=== PATIENT | male | born 1955 | race Caucasian/White ===

== ENCOUNTER 2020-02-04 17:04 | Inpatient (IN) | payer MEDICARE, MEDICAID, SELFPAY ==
[2020-02-04 17:09] VITALS: BP 175/104; PULSE 94; RESP 25; TEMP 35.7; O2SAT 95; BMI 25.1
--- NOTE | 2020-02-04 17:23 | ECG_ITS ---
Measurements Intervals [place] Rate: 102 P: TN: 0 QRS: -3 QRSD: 74 T: 48 QT: 304 QTc: 397 SUPRAVENTRICULAR TACHYCARDIA of 102 bpm Heavy baseline artifact Defective EKG, need to repeat Electronically Signed On 02-04-2020 20:58:05 CDT by Jhon Lin M.D. [email or web address]
--- NOTE | 2020-02-04 17:23 | XR_ITS ---
WS: [id number] XR chest 1V portable [id number] REASON FOR EXAM: dyspnea/cough FINDINGS: A reticular pattern in the right lung base is seen. The lung sparks are well aerated and appears to be some degree of chronic obstructive pulmonary disea se. The heart is not enlarged there is arteriosclerotic changes in the arch of the aorta. The hilum and apices normal No evidence of osseous abnormalities. XR/XR chest 1V portable [id number] IMPRESSION: Chronic obstructive pulmonary disease with right lower lung interstitial fibros is.
--- NOTE | 2020-02-04 17:30 | ED_ITS ---
Documented by User: Philip Tolentino DO 02/05/20 18:32 HPI - SOB/Dyspnea General: Chief Complaint: Shortness of Breath/Dyspnea Stated Complaint: RESP DISTRESS, AFIB Time Seen by Provider: 02/04/20 17:10 History of Present Illness: HPI Narrative: 64-year-old male brought in from [facility] by EMS. He is a DNR. He was they were called for respiratory distress on arrival EMS reports he was 85% on 5 L by nasal cannula. There is conflicting information in his chart there is an older dated he Do Not Recussitate sitting he does want CPR but several years dated later there is a signed into effect Do Not Recussitate statement he has a history of CVA and he has contractures he is only groaning and unable to give any meaningful history all the history given is from the nurse report. via EMS as well as the [facility] and old records. MD elicited complaint: shortness of breath and cough Pertinent past history: COPD Onset (ago): hour(s) Timing: constant Severity: severe Known history of: COPD and aspiration pneumonia Associated symptoms: Reports chest congestion and cough Treatment prior to arrival: oxygen and bronchodilator Review of Systems General: Reports: ROS unobtainable due to medical condition and ROS unobtainable due to mental status Resp: Reports: chest congestion PFSH ED PFSH: Medical History Alcohol abuse, uncomplicated Analgesic rebound headache Arrhythmia, atrial Bradycardia, unspecified Cerebral infarction, unspecified COPD (chronic obstructive pulmonary disease) Dorsalgia, unspecified Dysphagia Essential (primary) hypertension Expressive aphasia GERD (gastroesophageal reflux disease) Hemiplegia and hemiparesis following cerebral infarction affecting unspecified side Hemiplegia, unspecified affecting unspecified side Hypotension, unspecified Major depressive disorder, single episode, unspecified Other malaise Other muscle spasm Pure hypercholesterolemia, unspecified Spasticity Unspecified sequelae of cerebral infarction Surgical History No pertinent past surgical history Family History Other Hypertension Social History (Updated 02/04/20 @ 23:14 by Richard Caraballo MD) Smoking and tobacco status: unknown if ever smoked Alcohol intake: former Substance/Drug Use: never Housing: Intermediate Physical Exam HENMT: COMMON NORMALS: normocephalic and atraumatic HEAD & SCALP: normocephalic and atraumatic Neck/C-Spine: COMMON NORMALS: no JVD Lymph: LYMPHATIC: no lymphadenopathy noted and no lymphedema noted Resp: COMMON NORMALS: No use of accessory muscles EFFORT & INSPECTION: Yes abnormal respiratory pattern, Yes tachypneic, Yes respiratory distress, Yes labored, Yes grunting, Yes Actively coughing and Yes uses accessory muscles AUSCULTATION: wheezes and diminished lung sounds Cardio: COMMON NORMALS: no JVD, regular rhythm and No murmurs present (Cardio) RATE: tachycardic RHYTHM: regular rhythm GI: COMMON NORMALS: Soft to palpation and No hepatosplenomegaly present INSPECTION: Yes abdominal distension AUSCULTATION: Yes Hypoactive bowel sounds present PALPATION: Yes Soft to palpation, No Tenderness to palpation present (GI), No Guarding due to palpation present (GI) and Yes No hepatosplenomegaly present PERCUSSION: tympanic to percussion Skin: COMMON NORMALS: no rashes or lesions noted GENERAL SKIN EXAM: no rashes or lesions noted Course Vital Signs: Vital signs: Vital Signs Temperature 97.7 F 02/05/20 16:00 Pulse Rate 91 02/05/20 16:00 Respiratory Rate 16 02/05/20 16:00 Blood Pressure 124/75 02/05/20 16:00 Pulse Oximetry 93 02/05/20 16:00 MDM - SOB/Dyspnea MDM Narrative: Medical decision making narrative: Care turned over to Dr. Campbell at change of shift. See his notes for final diagnosis and disposition Lab Data: Labs: Lab Results 02/04/20 02/04/20 02/04/20 Range/Units 17:52 18:10 18:10 WBC 13.1 H (4.0-10.0) 10^3/ uL RBC 5.51 H (4.1-5.3) 10^6/u L Hgb 16.1 (11.7-16.6) g/dL Hct 53.1 H (42.0-52.0) % MCV 96.4 H (80-94) fL MCH 29.2 (28.0-34.0) pg MCHC 30.3 (30.0-36.0) g/dL RDW 13.4 (12.1-15.1) % Plt Count 302 (130-400) 10^3/c mm MPV 9.2 (7.4-10.4) fL Neut % (Auto) 85.4 % Lymph % (Auto) 9.8 % Marshall % (Auto) 2.8 % Eos % (Auto) 1.4 % Baso % (Auto) 0.4 % Neut # (Auto) 11.2 H (1.8-7.7) 10^3/u L Lymph # (Auto) 1.3 (0.8-4.8) 10^3/u L Marshall # (Auto) 0.4 (0.2-0.9) 10^3/u L Eos # (Auto) 0.2 (0.0-0.8) 10^3/u L Baso # (Auto) 0.1 (0.0-0.1) 10^3/u L Nucleated RBC % (a uto) 0 % Nucleated RBCs # 0.0 /100WBC Specimen Type Arterial Sample Site Radial, left ABG pH 7.30 L (7.35-7.45) ABG pCO2 59.1 H (35-45) mmHg ABG pO2 76.3 L (80.0-100.0) mmH g ABG HCO3 28.8 H (22-26) mmol/L ABG O2 Saturation 94.5 ABG Base Excess 0.7 (-2.0-2.0) mmol/ L Kapil Test Pos A-a O2 Gradient 549.8 H (5-10) mmHg Hematocrit 48.1 (42-52) % Hgb O2 Saturation 93.0 L (95-100) % Carboxyhemoglobin 1.0 (0.4-20.1) %THgb Methemoglobin 0.6 (0.4-1.5) % Total Hemoglobin 15.7 (14-18) g/dL Sodium 140.0 140 (131-143) mmol/L Potassium 4.5 4.4 (3.5-5.0) mmol/L Glucose 108.0 101 (70-115) mg/dL Ionized Calcium 1.3 (1.1-1.4) mmol/L O2 Delivery Device Nrb FiO2 100.0 % Pot Washer ID jmn Chloride 100 (98-107) mmol/L Carbon Dioxide 21 L (22-29) mmol/L Anion Gap 23.4 H (5-19) BUN 17 (8-23) mg/dL Creatinine 0.8 (0.7-1.2) mg/dL GFR Calculation 96.7 (90-130) mL/min Calculated Osmolal ity 287 (285-295) mOsm/k g Lactate (0.5-2.2) mmol/L Calcium 10.2 (8.5-10.5) mg/dL Total Bilirubin 0.3 (0.15-1.2) mg/dL AST 97 H (0-40) U/L ALT 91 H (0-41) U/L Alkaline Phosphata se 131 H (40-130) IU/L Troponin T Baselin e (0-15) ng/mL Troponin T 120 Min qagan tayagungin (0-15) ng/mL Delta Troponin T (0-10) ABS# NT-Pro-B Natriuret Pep (0-125) pg/mL Total Protein 7.9 (6.6-8.7) g/dL Albumin 4.3 (3.5-5.2) g/dL Globulin 3.6 (1.3-4.6) g/dL Urine Color (Yellow) Urine Appearance (CLEAR) Urine pH (5-7) Ur Specific Gravit y (1.005-1.030) Urine Protein (Negative) Urine Glucose (UA) (Normal) Urine Ketones (Negative) Urine Blood (Negative) Urine Nitrate (Negative) Urine Bilirubin (NEGATIVE) Urine Urobilinogen (Negative) mg/dL Ur Leukocyte Yajaira ase (Negative) 02/04/20 02/04/20 02/04/20 Range/Units 18:10 18:10 19:23 WBC (4.0-10.0) 10^3/ uL RBC (4.1-5.3) 10^6/u L Hgb (11.7-16.6) g/dL Hct (42.0-52.0) % MCV (80-94) fL MCH (28.0-34.0) pg MCHC (30.0-36.0) g/dL RDW (12.1-15.1) % Plt Count (130-400) 10^3/c mm MPV (7.4-10.4) fL Neut % (Auto) % Lymph % (Auto) % Marshall % (Auto) % Eos % (Auto) % Baso % (Auto) % Neut # (Auto) (1.8-7.7) 10^3/u L Lymph # (Auto) (0.8-4.8) 10^3/u L Marshall # (Auto) (0.2-0.9) 10^3/u L Eos # (Auto) (0.0-0.8) 10^3/u L Baso # (Auto) (0.0-0.1) 10^3/u L Nucleated RBC % (a uto) % Nucleated RBCs # /100WBC Specimen Type Arterial Sample Site Radial, left ABG pH 7.34 L (7.35-7.45) ABG pCO2 49.4 H (35-45) mmHg ABG pO2 62.1 L (80.0-100.0) mmH g ABG HCO3 26.7 H (22-26) mmol/L ABG O2 Saturation ABG Base Excess 0.3 (-2.0-2.0) mmol/ L Kapil Test Pos A-a O2 Gradient (5-10) mmHg Hematocrit 42.6 (42-52) % Hgb O2 Saturation (95-100) % Carboxyhemoglobin (0.4-20.1) %THgb Methemoglobin (0.4-1.5) % Total Hemoglobin (14-18) g/dL Sodium (131-143) mmol/L Potassium (3.5-5.0) mmol/L Glucose (70-115) mg/dL Ionized Calcium (1.1-1.4) mmol/L O2 Delivery Device Bipap FiO2 45.0 % Pot Washer ID harkr Chloride (98-107) mmol/L Carbon Dioxide (22-29) mmol/L Anion Gap (5-19) BUN (8-23) mg/dL Creatinine (0.7-1.2) mg/dL GFR Calculation (90-130) mL/min Calculated Osmolal ity (285-295) mOsm/k g Lactate 3.2 H (0.5-2.2) mmol/L Calcium (8.5-10.5) mg/dL Total Bilirubin (0.15-1.2) mg/dL AST (0-40) U/L ALT (0-41) U/L Alkaline Phosphata se (40-130) IU/L Troponin T Baselin e 10 (0-15) ng/mL Troponin T 120 Min qagan tayagungin (0-15) ng/mL Delta Troponin T (0-10) ABS# NT-Pro-B Natriuret Pep (0-125) pg/mL Total Protein (6.6-8.7) g/dL Albumin (3.5-5.2) g/dL Globulin (1.3-4.6) g/dL Urine Color (Yellow) Urine Appearance (CLEAR) Urine pH (5-7) Ur Specific Gravit y (1.005-1.030) Urine Protein (Negative) Urine Glucose (UA) (Normal) Urine Ketones (Negative) Urine Blood (Negative) Urine Nitrate (Negative) Urine Bilirubin (NEGATIVE) Urine Urobilinogen (Negative) mg/dL Ur Leukocyte Yajaira ase (Negative) 02/04/20 02/04/20 02/04/20 Range/Units 20:12 20:12 20:33 WBC (4.0-10.0) 10^3/ uL RBC (4.1-5.3) 10^6/u L Hgb (11.7-16.6) g/dL Hct (42.0-52.0) % MCV (80-94) fL MCH (28.0-34.0) pg MCHC (30.0-36.0) g/dL RDW (12.1-15.1) % Plt Count (130-400) 10^3/c mm MPV (7.4-10.4) fL Neut % (Auto) % Lymph % (Auto) % Marshall % (Auto) % Eos % (Auto) % Baso % (Auto) % Neut # (Auto) (1.8-7.7) 10^3/u L Lymph # (Auto) (0.8-4.8) 10^3/u L Marshall # (Auto) (0.2-0.9) 10^3/u L Eos # (Auto) (0.0-0.8) 10^3/u L Baso # (Auto) (0.0-0.1) 10^3/u L Nucleated RBC % (a uto) % Nucleated RBCs # /100WBC Specimen Type Sample Site ABG pH (7.35-7.45) ABG pCO2 (35-45) mmHg ABG pO2 (80.0-100.0) mmH g ABG HCO3 (22-26) mmol/L ABG O2 Saturation ABG Base Excess (-2.0-2.0) mmol/ L Kapil Test A-a O2 Gradient (5-10) mmHg Hematocrit (42-52) % Hgb O2 Saturation (95-100) % Carboxyhemoglobin (0.4-20.1) %THgb Methemoglobin (0.4-1.5) % Total Hemoglobin (14-18) g/dL Sodium (131-143) mmol/L Potassium (3.5-5.0) mmol/L Glucose (70-115) mg/dL Ionized Calcium (1.1-1.4) mmol/L O2 Delivery Device FiO2 % Pot Washer ID Chloride (98-107) mmol/L Carbon Dioxide (22-29) mmol/L Anion Gap (5-19) BUN (8-23) mg/dL Creatinine (0.7-1.2) mg/dL GFR Calculation (90-130) mL/min Calculated Osmolal ity (285-295) mOsm/k g Lactate (0.5-2.2) mmol/L Calcium (8.5-10.5) mg/dL Total Bilirubin (0.15-1.2) mg/dL AST (0-40) U/L ALT (0-41) U/L Alkaline Phosphata se (40-130) IU/L Troponin T Baselin e (0-15) ng/mL Troponin T 120 Min qagan tayagungin 10.08 (0-15) ng/mL Delta Troponin T 0.08 (0-10) ABS# NT-Pro-B Natriuret Pep 85 (0-125) pg/mL Total Protein (6.6-8.7) g/dL Albumin (3.5-5.2) g/dL Globulin (1.3-4.6) g/dL Urine Color Yellow (Yellow) Urine Appearance Clear (CLEAR) Urine pH 6 (5-7) Ur Specific Gravit y 1.010 (1.005-1.030) Urine Protein Neg (Negative) Urine Glucose (UA) Norm (Normal) Urine Ketones Negative (Negative) Urine Blood Neg (Negative) Urine Nitrate Negative (Negative) Urine Bilirubin Neg (NEGATIVE) Urine Urobilinogen Norm (Negative) mg/dL Ur Leukocyte Yajaira ase Negative (Negative) Discharge Plan Discharge Patient Disposition: Placed in Observation Admit Provider: Richard Caraballo Clinical Impression: Acute hypercapnic respiratory failure Altered mental status Qualifiers: Altered mental status type: unspecified Qualified Code(s): R41.82 - Altered mental status, unspecified Aspiration pneumonia Qualifiers: Aspiration pneumonia type: unspecified Laterality: right Lung location: lower lobe of lung Qualified Code(s): J69.0 - Pneumonitis due to inhalation of food and vomit Condition: Stable Referrals: Rex Bernardo MD [Primary Care Provider] - Discharge Date/Time: 02/04/20 23:20 Sign Out Sign Out Data: Patient Sign Out occurred on 02/04/20 at 18:43. Patient's care was discussed, and care was transferred from to Erna Rodriguez. Coding Level of Care Code ED Senior Information Security Consultant for Chg Fwd Exam Detailed Documented by User: Erna Rodriguez 02/04/20 22:36 HPI - SOB/Dyspnea General: Chief Complaint: Shortness of Breath/Dyspnea Stated Complaint: RESP DISTRESS, AFIB Time Seen by Provider: 02/04/20 17:10 PFSH ED PFSH: Medical History Alcohol abuse, uncomplicated Analgesic rebound headache Arrhythmia, atrial Bradycardia, unspecified Cerebral infarction, unspecified COPD (chronic obstructive pulmonary disease) Dorsalgia, unspecified Dysphagia Essential (primary) hypertension Expressive aphasia GERD (gastroesophageal reflux disease) Hemiplegia and hemiparesis following cerebral infarction affecting unspecified side Hemiplegia, unspecified affecting unspecified side Hypotension, unspecified Major depressive disorder, single episode, unspecified Other malaise Other muscle spasm Pure hypercholesterolemia, unspecified Spasticity Unspecified sequelae of cerebral infarction Surgical History No pertinent past surgical history Family History Other Hypertension Social History (Updated 02/04/20 @ 23:14 by Richard Caraballo MD) Smoking and tobacco status: unknown if ever smoked Alcohol intake: former Substance/Drug Use: never Housing: Intermediate Course Vital Signs: Vital signs: Vital Signs Temperature 97.7 F 02/05/20 16:00 Pulse Rate 91 02/05/20 16:00 Respiratory Rate 16 02/05/20 16:00 Blood Pressure 124/75 02/05/20 16:00 Pulse Oximetry 93 02/05/20 16:00 MDM - SOB/Dyspnea MDM Narrative: Medical decision making narrative: I talked to the patient's family and they wish to make him a full code. The patient would wake up and talk to me and he confirms he wants everything done. His work-up reveals proba ble aspiration pneumonia in the right lower lobe, he shows signs of hypercapnic respiratory failure but is improving on BiPAP. The case was reviewed in full with Dr. Caraballo and he is in agreement to admission to the floor. He will evaluate the patient and and if necessary place the patient in the ICU. [id number] -Dr. Caraballo would like the patient to have a CT of the head before going to the floor. Lab Data: Attestation: I reviewed the patient's lab results. Labs: Lab Results 02/04/20 02/04/20 02/04/20 Range/Units 17:52 18:10 18:10 WBC 13.1 H (4.0-10.0) 10^3/ uL RBC 5.51 H (4.1-5.3) 10^6/u L Hgb 16.1 (11.7-16.6) g/dL Hct 53.1 H (42.0-52.0) % MCV 96.4 H (80-94) fL MCH 29.2 (28.0-34.0) pg MCHC 30.3 (30.0-36.0) g/dL RDW 13.4 (12.1-15.1) % Plt Count 302 (130-400) 10^3/c mm MPV 9.2 (7.4-10.4) fL Neut % (Auto) 85.4 % Lymph % (Auto) 9.8 % Marshall % (Auto) 2.8 % Eos % (Auto) 1.4 % Baso % (Auto) 0.4 % Neut # (Auto) 11.2 H (1.8-7.7) 10^3/u L Lymph # (Auto) 1.3 (0.8-4.8) 10^3/u L Marshall # (Auto) 0.4 (0.2-0.9) 10^3/u L Eos # (Auto) 0.2 (0.0-0.8) 10^3/u L Baso # (Auto) 0.1 (0.0-0.1) 10^3/u L Nucleated RBC % (a uto) 0 % Nucleated RBCs # 0.0 /100WBC Specimen Type Arterial Sample Site Radial, left ABG pH 7.30 L (7.35-7.45) ABG pCO2 59.1 H (35-45) mmHg ABG pO2 76.3 L (80.0-100.0) mmH g ABG HCO3 28.8 H (22-26) mmol/L ABG O2 Saturation 94.5 ABG Base Excess 0.7 (-2.0-2.0) mmol/ L Kapil Test Pos A-a O2 Gradient 549.8 H (5-10) mmHg Hematocrit 48.1 (42-52) % Hgb O2 Saturation 93.0 L (95-100) % Carboxyhemoglobin 1.0 (0.4-20.1) %THgb Methemoglobin 0.6 (0.4-1.5) % Total Hemoglobin 15.7 (14-18) g/dL Sodium 140.0 140 (131-143) mmol/L Potassium 4.5 4.4 (3.5-5.0) mmol/L Glucose 108.0 101 (70-115) mg/dL Ionized Calcium 1.3 (1.1-1.4) mmol/L O2 Delivery Device Nrb FiO2 100.0 % Pot Washer ID jmn Chloride 100 (98-107) mmol/L Carbon Dioxide 21 L (22-29) mmol/L Anion Gap 23.4 H (5-19) BUN 17 (8-23) mg/dL Creatinine 0.8 (0.7-1.2) mg/dL GFR Calculation 96.7 (90-130) mL/min Calculated Osmolal ity 287 (285-295) mOsm/k g Lactate (0.5-2.2) mmol/L Calcium 10.2 (8.5-10.5) mg/dL Total Bilirubin 0.3 (0.15-1.2) mg/dL AST 97 H (0-40) U/L ALT 91 H (0-41) U/L Alkaline Phosphata se 131 H (40-130) IU/L Troponin T Baselin e (0-15) ng/mL Troponin T 120 Min qagan tayagungin (0-15) ng/mL Delta Troponin T (0-10) ABS# NT-Pro-B Natriuret Pep (0-125) pg/mL Total Protein 7.9 (6.6-8.7) g/dL Albumin 4.3 (3.5-5.2) g/dL Globulin 3.6 (1.3-4.6) g/dL Urine Color (Yellow) Urine Appearance (CLEAR) Urine pH (5-7) Ur Specific Gravit y (1.005-1.030) Urine Protein (Negative) Urine Glucose (UA) (Normal) Urine Ketones (Negative) Urine Blood (Negative) Urine Nitrate (Negative) Urine Bilirubin (NEGATIVE) Urine Urobilinogen (Negative) mg/dL Ur Leukocyte Yajaira ase (Negative) 02/04/20 02/04/20 02/04/20 Range/Units 18:10 18:10 19:23 WBC (4.0-10.0) 10^3/ uL RBC (4.1-5.3) 10^6/u L Hgb (11.7-16.6) g/dL Hct (42.0-52.0) % MCV (80-94) fL MCH (28.0-34.0) pg MCHC (30.0-36.0) g/dL RDW (12.1-15.1) % Plt Count (130-400) 10^3/c mm MPV (7.4-10.4) fL Neut % (Auto) % Lymph % (Auto) % Marshall % (Auto) % Eos % (Auto) % Baso % (Auto) % Neut # (Auto) (1.8-7.7) 10^3/u L Lymph # (Auto) (0.8-4.8) 10^3/u L Marshall # (Auto) (0.2-0.9) 10^3/u L Eos # (Auto) (0.0-0.8) 10^3/u L Baso # (Auto) (0.0-0.1) 10^3/u L Nucleated RBC % (a uto) % Nucleated RBCs # /100WBC Specimen Type Arterial Sample Site Radial, left ABG pH 7.34 L (7.35-7.45) ABG pCO2 49.4 H (35-45) mmHg ABG pO2 62.1 L (80.0-100.0) mmH g ABG HCO3 26.7 H (22-26) mmol/L ABG O2 Saturation ABG Base Excess 0.3 (-2.0-2.0) mmol/ L Kapil Test Pos A-a O2 Gradient (5-10) mmHg Hematocrit 42.6 (42-52) % Hgb O2 Saturation (95-100) % Carboxyhemoglobin (0.4-20.1) %THgb Methemoglobin (0.4-1.5) % Total Hemoglobin (14-18) g/dL Sodium (131-143) mmol/L Potassium (3.5-5.0) mmol/L Glucose (70-115) mg/dL Ionized Calcium (1.1-1.4) mmol/L O2 Delivery Device Bipap FiO2 45.0 % Pot Washer ID harkr Chloride (98-107) mmol/L Carbon Dioxide (22-29) mmol/L Anion Gap (5-19) BUN (8-23) mg/dL Creatinine (0.7-1.2) mg/dL GFR Calculation (90-130) mL/min Calculated Osmolal ity (285-295) mOsm/k g Lactate 3.2 H (0.5-2.2) mmol/L Calcium (8.5-10.5) mg/dL Total Bilirubin (0.15-1.2) mg/dL AST (0-40) U/L ALT (0-41) U/L Alkaline Phosphata se (40-130) IU/L Troponin T Baselin e 10 (0-15) ng/mL Troponin T 120 Min qagan tayagungin (0-15) ng/mL Delta Troponin T (0-10) ABS# NT-Pro-B Natriuret Pep (0-125) pg/mL Total Protein (6.6-8.7) g/dL Albumin (3.5-5.2) g/dL Globulin (1.3-4.6) g/dL Urine Color (Yellow) Urine Appearance (CLEAR) Urine pH (5-7) Ur Specific Gravit y (1.005-1.030) Urine Protein (Negative) Urine Glucose (UA) (Normal) Urine Ketones (Negative) Urine Blood (Negative) Urine Nitrate (Negative) Urine Bilirubin (NEGATIVE) Urine Urobilinogen (Negative) mg/dL Ur Leukocyte Yajaira ase (Negative) 02/04/20 02/04/20 02/04/20 Range/Units 20:12 20:12 20:33 WBC (4.0-10.0) 10^3/ uL RBC (4.1-5.3) 10^6/u L Hgb (11.7-16.6) g/dL Hct (42.0-52.0) % MCV (80-94) fL MCH (28.0-34.0) pg MCHC (30.0-36.0) g/dL RDW (12.1-15.1) % Plt Count (130-400) 10^3/c mm MPV (7.4-10.4) fL Neut % (Auto) % Lymph % (Auto) % Marshall % (Auto) % Eos % (Auto) % Baso % (Auto) % Neut # (Auto) (1.8-7.7) 10^3/u L Lymph # (Auto) (0.8-4.8) 10^3/u L Marshall # (Auto) (0.2-0.9) 10^3/u L Eos # (Auto) (0.0-0.8) 10^3/u L Baso # (Auto) (0.0-0.1) 10^3/u L Nucleated RBC % (a uto) % Nucleated RBCs # /100WBC Specimen Type Sample Site ABG pH (7.35-7.45) ABG pCO2 (35-45) mmHg ABG pO2 (80.0-100.0) mmH g ABG HCO3 (22-26) mmol/L ABG O2 Saturation ABG Base Excess (-2.0-2.0) mmol/ L Kapil Test A-a O2 Gradient (5-10) mmHg Hematocrit (42-52) % Hgb O2 Saturation (95-100) % Carboxyhemoglobin (0.4-20.1) %THgb Methemoglobin (0.4-1.5) % Total Hemoglobin (14-18) g/dL Sodium (131-143) mmol/L Potassium (3.5-5.0) mmol/L Glucose (70-115) mg/dL Ionized Calcium (1.1-1.4) mmol/L O2 Delivery Device FiO2 % Pot Washer ID Chloride (98-107) mmol/L Carbon Dioxide (22-29) mmol/L Anion Gap (5-19) BUN (8-23) mg/dL Creatinine (0.7-1.2) mg/dL GFR Calculation (90-130) mL/min Calculated Osmolal ity (285-295) mOsm/k g Lactate (0.5-2.2) mmol/L Calcium (8.5-10.5) mg/dL Total Bilirubin (0.15-1.2) mg/dL AST (0-40) U/L ALT (0-41) U/L Alkaline Phosphata se (40-130) IU/L Troponin T Baselin e (0-15) ng/mL Troponin T 120 Min qagan tayagungin 10.08 (0-15) ng/mL Delta Troponin T 0.08 (0-10) ABS# NT-Pro-B Natriuret Pep 85 (0-125) pg/mL Total Protein (6.6-8.7) g/dL Albumin (3.5-5.2) g/dL Globulin (1.3-4.6) g/dL Urine Color Yellow (Yellow) Urine Appearance Clear (CLEAR) Urine pH 6 (5-7) Ur Specific Gravit y 1.010 (1.005-1.030) Urine Protein Neg (Negative) Urine Glucose (UA) Norm (Normal) Urine Ketones Negative (Negative) Urine Blood Neg (Negative) Urine Nitrate Negative (Negative) Urine Bilirubin Neg (NEGATIVE) Urine Urobilinogen Norm (Negative) mg/dL Ur Leukocyte Yajaira ase Negative (Negative) Imaging Data^: CXR: Attestation: I personally reviewed and interpreted this imaging study as follows: My impression: Right lower lobe infiltrate. CT Abd/Pel: My impression: [facility] [address] [place] [address] CT Scan Report Signed Patient: Nakul Nolasco Unit #: [id number] : 1955 Age/Sex: 64 / M ADM Date: 02/04/20 Loc: ER Room/Bed: Attending Dr: Ordering Provider/Ordering MD: Philip Tolentino DO Date of Service: 02/04/20 Procedure(s): CT abdomen pelvis w con* [id number] Accession Number(s): [id number] Report Number: [id number] PROCEDURE INFORMATION: Exam: CT Abdomen And Pelvis With Contrast Exam date and time: 02/04/2020 7:20 PM Age: 64 years old Clinical indication: Abdominal pain; Prior surgery; Surgery type: Peg tube; Additional info: Abd pain TECHNIQUE: Imaging protocol: Computed tomography of the abdomen and pelvis with intravenous contrast. Radiation optimization: All CT scans at this facility use at least one of these dose optimization techniques: automated exposure control; mA and/or kV adjustment per patient size (includes targeted exams where dose is matched to clinical indication); or iterative reconstruction. Contrast material: OMNI 300; Contrast volume: 95 ml; Contrast route: IV; COMPARISON: CR Pelvis AP 1 or 2 views* [id number] 01/26/2015 5:12 AM RADIATION DOSE METRICS: Total DLP: 1207.93 mGy-cm FINDINGS: Tubes, catheters and devices: A gastrostomy tube ends in the stomach. No surrounding inflammation or abnormal fluid collection. Lungs: Multiple reticulated opacities in both lower lobes with superimposed centrilobular emphysema. Liver: Normal. No mass. Gallbladder and bile ducts: Normal. No calcified stones. No ductal dilation. Pancreas: Normal. No ductal dilation. Spleen: Normal. No splenomegaly. Adrenals: Normal. No mass. Kidneys and ureters: Normal. No hydronephrosis. Stomach and bowel: Distal colonic diverticula are not inflamed. Increased stool in the rectum measuring up to 4.9 cm. No wall thickening or mechanical obstruction. Appendix: The appendix is normal. Intraperitoneal space: Unremarkable. No free air. No significant fluid collection. Vasculature: Unremarkable. No abdominal aortic aneurysm. Lymph nodes: Unremarkable. No enlarged lymph nodes. Bladder: Unremarkable as visualized. Reproductive: Unremarkable as visualized. Bones/joints: Unremarkable. No acute fracture. Soft tissues: Unremarkable. CT/CT abdomen pelvis w con* [id number] IMPRESSION: 1. No acute abdominal pelvic findings. 2. Gastrostomy tube without evidence of complication. 3. Diverticulosis. 4. Increased rectal stool. 5. Bibasilar reticulated lung opacities. The symmetry suggests this is a combination of atelectasis and vascular congestion. Radiation Dose CTDIVOL = (mGy): DLP = 1207.93 (mGy-cm) Dictated By: Sylvia Mills MD Signed By: Sylvia Mills MD Signed Date/Time: 02/04/202032 DD/ 31 EKG Data^: EKG 1: Attestation: I personally reviewed and interpreted this EKG as follows: EKG Interpretation Date: 02/04/20 EKG interpretation time: 18:07 Interpretation: Probable sinus tachycardia at 102 beats a minute, significant baseline artifact. Discharge Plan Discharge Patient Disposition: Placed in Observation Admit Provider: Richard Caraballo Clinical Impression: Acute hypercapnic respiratory failure Altered mental status Qualifiers: Altered mental status type: unspecified Qualified Code(s): R41.82 - Altered mental status, unspecified Aspiration pneumonia Qualifiers: Aspiration pneumonia type: unspecified Laterality: right Lung location: lower lobe of lung Qualified Code(s): J69.0 - Pneumonitis due to inhalation of food and vomit Condition: Stable Referrals: Rex Bernardo MD [Primary Care Provider] - Discharge Date/Time: 02/04/20 23:20 Sign Out Sign Out Data: Patient Sign Out occurred on 02/04/20 at 18:43. Patient's care was discussed, and care was transferred from to [facility]. Coding Level of Care Code ED Senior Information Security Consultant for Chg Fwd Exam Detailed
--- NOTE | 2020-02-04 17:35 | CTR_ITS ---
PROCEDURE INFORMATION: Exam: CT Abdomen And Pelvis With Contrast Exam date and time: 02/04/2020 7:20 PM Age: 64 years old Clinical indication: Abdominal pain; Prior surgery; Surgery type: Peg tube; Additional info: Abd pain TECHNIQUE: Imaging protocol: Computed tomography of the abdomen and pelvis with intravenous contrast. Radiation optimization: All CT scans at this facility use at least one of these dose optimization techniques: automated exposure control; mA and/or kV adjustment per patient size (includes targeted exams where dose is matched to clinical indication); or iterative reconstruction. Contrast material: OMNI 300; Contrast volume: 95 ml; Contrast route: IV; COMPARISON: CR Pelvis AP 1 or 2 views* [id number] 01/26/2015 5:12 AM RADIATION DOSE METRICS: Total DLP: 1207.93 mGy-cm FINDINGS: Tubes, catheters and devices: A gastrostomy tube ends in the stomach. No surrounding inflammation or abnormal fluid collection. Lungs: Multiple reticulated opacities in both lower lobes with superimposed centrilobular emphysema. Liver: Normal. No mass. Gallbladder and bile ducts: Normal. No calcified stones. No ductal dilation. Pancreas: Normal. No ductal dilation. Spleen: Normal. No splenomegaly. Adrenals: Normal. No mass. Kidneys and ureters: Normal. No hydronephrosis. Stomach and bowel: Distal colonic diverticula are not inflamed. Increased stool in the rectum measuring up to 4.9 cm. No wall thickening or mechanical obstruction. Appendix: The appendix is normal. Intraperitoneal space: Unremarkable. No free air. No significant fluid collection. Vasculature: Unremarkable. No abdominal aortic aneurysm. Lymph nodes: Unremarkable. No enlarged lymph nodes. Bladder: Unremarkable as visualized. Reproductive: Unremarkable as visualized. Bones/joints: Unremarkable. No acute fracture. Soft tissues: Unremarkable. CT/CT abdomen pelvis w con* [id number] IMPRESSION: 1. No acute abdominal pelvic findings. 2. Gastrostomy tube without evidence of complication. 3. Diverticulosis. 4. Increased rectal stool. 5. Bibasilar reticulated lung opacities. The symmetry suggests this is a combination of atelectasis and vascular congestion. Radiation Dose CTDIVOL = (mGy): DLP = 1207.93 (mGy-cm)
[2020-02-04 18:03] LABS: ABG PCO2 59.1 mmHg (35-45); Alveolar-Arterial Oxygen Gradi 549.8 mmHg (5-10); Arterial Blood Gas Hematocrit 48.1 % (42-52); Base Excess ABG 0.7 mmol/L (-2.0-2.0); Blood Gas Allen Test Pos; Blood Gas Sample Site Radial, left; Blood Gas Sample Type Arterial; HCO3 ABG 28.8 mmol/L (22-26); Ionized Calcium Level - ABG 1.3 mmol/L (1.1-1.4); Methemoglobin 0.6 % (0.4-1.5); Oxygen Device NRB; Oxygen Saturation ABG 94.5; PO2 ABG 76.3 mmHg (80.0-100.0); Potassium Level - ABG 4.5 mmol/L (3.5-5.0); Total Hemoglobin 15.7 g/dL (14-18)
[2020-02-04 18:19] LABS: Basophils # 0.1 10^3/uL (0.0-0.1); Basophils % 0.4 %; Eosinophils # 0.2 10^3/uL (0.0-0.8); Eosinophils % 1.4 %; Hematocrit 53.1 % (42.0-52.0); Hemoglobin 16.1 g/dL (11.7-16.6); Lymphocytes # 1.3 10^3/uL (0.8-4.8); Lymphocytes % 9.8 %; Mean Corpuscular HGB Conc 30.3 g/dL (30.0-36.0); Mean Corpuscular Hemoglobin 29.2 pg (28.0-34.0); Mean Corpuscular Volume 96.4 fL (80-94); Mean Platelet Volume 9.2 fL (7.4-10.4); Monocytes # 0.4 10^3/uL (0.2-0.9); Monocytes % 2.8 %; Neutrophils # 11.2 10^3/uL (1.8-7.7); Neutrophils % 85.4 %; Nucleated Red Blood Cells % 0 %; Platelet Count 302 10^3/cmm (130-400); Red Blood Count 5.51 10^6/uL (4.1-5.3); Red Cell Distribution Width 13.4 % (12.1-15.1); White Blood Count 13.1 10^3/uL (4.0-10.0)
[2020-02-04 18:38] LABS: Lactate (Lactic Acid level) 3.2 mmol/L (0.5-2.2)
[2020-02-04 18:45] VITALS: PULSE 103; RESP 28; O2SAT 95
[2020-02-04 18:54] LABS: Alanine Aminotransferase 91 U/L (0-41); Albumin Level 4.3 g/dL (3.5-5.2); Alkaline Phosphatase 131 IU/L (40-130); Anion Gap 23.4 (5-19); Aspartate Amino Transferase 97 U/L (0-40); Blood Urea Nitrogen 17 mg/dL (8-23); Calcium 10.2 mg/dL (8.5-10.5); Carbon Dioxide 21 mmol/L (22-29); Chloride 100 mmol/L (98-107); Creatinine Clr Calc Pharmacy 94.1244; Globulin 3.6 g/dL (1.3-4.6); Glomerular Filtration Rate 96.7 mL/min (90-130); Glucose 101 mg/dL (65-115); Osmolality Calculated 287 mOsm/kg (285-295); Potassium 4.4 mmol/L (3.5-5.1); Sodium 140 mmol/L (136-145); Total Bilirubin 0.3 mg/dL (0.15-1.2); Total Protein 7.9 g/dL (6.6-8.7)
[2020-02-04 18:56] LABS: Troponin(5th) Baseline 10 ng/mL (0-15)
[2020-02-04 19:25] VITALS: PULSE 104; RESP 23; O2SAT 91
[2020-02-04] MEDS: ipratropium-albuterol 3 mL Neb INHALATION (19:25)
[2020-02-04 19:34] LABS: ABG PCO2 49.4 mmHg (35-45); ABG PH Result 7.34 (7.35-7.45); Arterial Blood Gas Hematocrit 42.6 % (42-52); Base Excess ABG 0.3 mmol/L (-2.0-2.0); Blood Gas Allen Test Pos; Blood Gas Sample Site Radial, left; Blood Gas Sample Type Arterial; HCO3 ABG 26.7 mmol/L (22-26); Oxygen Device BIPAP; PO2 ABG 62.1 mmHg (80.0-100.0)
[2020-02-04 19:35] VITALS: PULSE 104; PULSE 105; RESP 23; O2SAT 91; O2SAT 92
[2020-02-04 20:33] LABS: Troponin 5 2HR 10.08 ng/mL (0-15); Troponin 5 2HR Delta 0.08 ABS# (0-10)
[2020-02-04] MEDS: levofloxacin-dextrose 5 % 750 MG/150 ML PREMIX 150 MG IV (20:57)
[2020-02-04] MEDS: metroNIDAZOLE IV 500 MG/100 ML PREMIX 100 MG IV (20:58)
[2020-02-04 20:59] LABS: Add Urine Microscopic? NO
[2020-02-04 21:57] LABS: Bilirubin Urine Neg (NEGATIVE); Blood Urine Neg (Negative); Glucose Urine UA Norm (Normal); Ketones Urine Negative (Negative); Leukocyte Esterase Urine Negative (Negative); Nitrate Urine Negative (Negative); Protein Urine Neg (Negative); Urine Appearance Clear (CLEAR); Urine Color Yellow (Yellow); Urobilinogen Urine Norm (Negative); pH Urine 6 (5-7)
[2020-02-04 21:59] LABS: NT Pro B Type Natriuretic Pept 85 pg/mL (0-125)
[2020-02-04 22:05] VITALS: PULSE 101; RESP 21; O2SAT 94
--- NOTE | 2020-02-04 22:36 | CTR_ITS ---
PROCEDURE INFORMATION: Exam: CT Head Without Contrast Exam date and time: 02/04/2020 10:36 PM Age: 64 years old Clinical indication: Altered mental status/memory loss; Patient HX: HX stroke, PT nonverbal; Additional info: AMS TECHNIQUE: Imaging protocol: Computed tomography of the head without contrast. Radiation optimization: All CT scans at this facility use at least one of these dose optimization techniques: automated exposure control; mA and/or kV adjustment per patient size (includes targeted exams where dose is matched to clinical indication); or iterative reconstruction. COMPARISON: CT head wo con* [id number] 10/10/2018 5:53 PM RADIATION DOSE METRICS: Total DLP: 894.78 mGy-cm FINDINGS: Brain: There is extensive hypodensity of the periventricular white matter. This is nonspecific, but a likely cause is small vessel ischemic disease. Large area of encephalomalacia in the left cerebral hemisphere superiorly involving portions of the frontal lobe and parietal lobe. This is consistent with chronic infarct and is similar to prior study. There is a 0.7 cm lacunar infarct in the left basal ganglia region. No abnormal intra-axial or extra-axial fluid collections are identified. There is no midline shift. No intracranial hemorrhage identified. Ventricles: The ventricles and sulci are markedly and diffusely prominent, compatible with global brain volume loss. Superimposed on this is ex vacuo dilation of the left lateral ventricle, similar to prior study. Bones/joints: Unremarkable as visualized. Sinuses: Visualized sinuses are unremarkable. No fluid levels. Mastoid air cells: Visualized mastoid air cells are well aerated. Soft tissues: Unremarkable. CT/CT head wo con* [id number] IMPRESSION: 1. No acute intracranial process identified. Chronic findings as above. Radiation Dose CTDIVOL = (mGy): DLP = 894.78 (mGy-cm)
--- NOTE | 2020-02-04 23:06 | P.HP_ITS ---
Providers/Chief Complaint Admitting Physician: Richard Caraballo MD Primary Care Provider: Rex Bernardo MD Chief Complaint: RESP DISTRESS, AFIB History of Present Illness Nakul Nolasco is a 64 year old male who is a resident of [facility] with past medical history of CVA with residual right-sided spastic hemiparesis, oropharyngeal dysphagia currently on mechanical soft diet, COPD, anxiety/depression, seizure disorder coming in today after he was found obtunded in his room. I called intermediate to get the report, nurses are stating that he was doing fine until today he attended his speech therapy session, he got his inhaler treatments, after a few hours his oxygen saturation was decreasing, he became unresponsive, he was sent to the ER for further evaluation. On arrival t o the ED patient was moaning and was put on BiPAP, he was in respiratory acidosis with hypoxia, his blood gas improved, his mentation improved, initially there was some confusion regarding his goals of care intubation was not considered, there is a DNR/DNI paperwork and his intermediate documentation, once patient mentation improved, he stated he is full code, his daughter was called who also endorsed full CODE STATUS. She told us that DNR/DNI was made when they thought he had second stroke on last admission. At the time of my evaluation he is tachycardic, hypertensive, breathing better on BiPAP settings 18/8 good tidal volumes, respiratory acidosis is improving, is a bit drowsy, only oriented to himself, does not know his date of , I requested ER to get CT head because of recent confusion and history of stroke He meet sepsis criteria, x-ray showing right middle lobe infiltrates, most likely he is aspirating He has been given ceftriaxone and Flagyl in the ER At the intermediate his temperature was 99.2, blood pressure stable, he was hypoxic in low 70s on room air at the time of EMT evaluation Review of Systems General: Reports: ROS unobtainable due to medical condition (Respiratory acidosis with confusion) Const: Denies: fever(s) Eyes: Denies: change in vision ENMT: Denies: throat pain Card: Denies: chest pain Resp: Reports: dyspnea GI: Denies: abdominal pain : Denies: flank pain Musc: Denies: neck pain Skin/Breast: Denies: rash Medications/Allergies Home Medications Medication Instructions Recorded Confirmed Last Taken Type Saccharomyces boulardii 250 mg 250 mg PO BID #120 cap 12/17/19 02/04/20 02/04/20 Rx capsule acetaminophen 325 mg tablet 650 mg PO QID PRN 12/17/19 02/04/20 Unknown History aripiprazole 2 mg tablet 2 mg PO DAILY 12/17/19 02/04/20 02/03/20 History gabapentin 600 mg tablet 600 mg PO TID 12/17/19 02/04/20 02/04/20 History magnesium hydroxide 400 mg/5 mL 5 ml PO DAILY PRN 12/17/19 02/04/20 Unknown History oral suspension fluticasone propionate 50 2 spray INTRANASAL DAILY #9.9 ml 01/13/20 02/04/20 02/04/20 Rx mcg/actuation nasal spray,suspension Effexor XR 75 mg PO BID 02/04/20 02/04/20 02/04/20 History albuterol sulfate 2.5 mg INHALATION Q6H PRN 02/04/20 02/04/20 Unknown History aspirin 325 mg PO DAILY 02/04/20 02/04/20 02/04/20 History atorvastatin 80 mg PO DAILY 02/04/20 02/04/20 02/03/20 History baclofen 10 mg PO TID 02/04/20 02/04/20 02/04/20 History hydrocodone-acetaminophen 1 tab PO DAILY PRN 02/04/20 02/04/20 Unknown History lactose-reduced food with fibr See Rx Instructions .ROUTE .COMPLEX 02/04/20 02/04/20 02/04/20 History [Isosource 1.5 Markus] levetiracetam [Keppra] 1,000 mg PO BID 02/04/20 02/04/20 02/04/20 History polyethylene glycol 3350 [Miralax] 17 g PO BEDTIME 02/04/20 02/04/20 02/03/20 History Allergies Allergy/AdvReac Type Severity Reaction Status Date / Time Penicillins Allergy Unknown Verified 01/29/20 09:35 PFSH Acute PFSH: Medical History Alcohol abuse, uncomplicated Analgesic rebound headache Arrhythmia, atrial Bradycardia, unspecified Cerebral infarction, unspecified COPD (chronic obstructive pulmonary disease) Dorsalgia, unspecified Dysphagia Essential (primary) hypertension Expressive aphasia GERD (gastroesophageal reflux disease) Hemiplegia and hemiparesis following cerebral infarction affecting unspecified side Hemiplegia, unspecified affecting unspecified side Hypotension, unspecified Major depressive disorder, single episode, unspecified Other malaise Other muscle spasm Pure hypercholesterolemia, unspecified Spasticity Unspecified sequelae of cerebral infarction Surgical History No pertinent past surgical history Family History Other Hypertension Social History (Updated 02/04/20 @ 23:14 by Richard Caraballo MD) Smoking and tobacco status: unknown if ever smoked Alcohol intake: former Substance/Drug Use: never Housing: [facility] Vitals/I&O/Wt Last Vital Signs Temp 96.2 F L 02/04/20 17:09 Pulse 105 H 02/04/20 19:35 Resp 23 H 02/04/20 19:25 BP 175/104 02/04/20 17:09 Pulse Ox 92 02/04/20 19:35 Weight last 48 hrs Weight 77.111 kg Physical Exam Narrative: EXAM NARRATIVE: Head to toe examination EOMI, PERRLA Pupils not asymmetrical Spastic hemiparesis of right upper and lower extremity He is able to move his left arm on command, following command, oriented to himself, able to give me little bit of information about today's event No active respiratory distress S1, S2, tachycardia No signs of heart failure He looks dehydrated Abdomen soft nontender nondistended Bilateral breath sounds without adventitious sounds Lethargic Trace edema of right lower extremity He has a foot brace on right side Rodas catheter draining clear yellow urine BiPAP 18/8 with good tidal volume Urinary Catheter Management^: Rodas: Cath Placed During This Visit: yes Urinary Catheter Date of Insertion: 02/04/20 Urinary Catheter Time of Insertion: 21:38 Data : 02/04/20 18:10 02/04/20 18:10 Micro: Microbiology 02/04/20 18:14 Blood Culture - Preliminary Blood SPECIMEN COLLECTED 02/04/20 18:10 Blood Culture - Preliminary Blood SPECIMEN COLLECTED A&P Assessment and plan (1) Sepsis: Status: Acute (2) Altered mental status: Status: Acute Qualifiers: Altered mental status type: unspecified Qualified Code(s): R41.82 - Altered mental status, unspecified (3) COPD (chronic obstructive pulmonary disease): Status: Acute (4) Spastic hemiparesis affecting dominant side: Status: Acute (5) Aspiration pneumonia: Status: Acute Qualifiers: Aspiration pneumonia type: unspecified Laterality: right Lung location: lower lobe of lung Qualified Code(s): J69.0 - Pneumonitis due to inhalation of food and vomit (6) Acute respiratory failure with hypoxia and hypercapnia: Status: Acute Additional A&P Information Sepsis secondary to aspiration pneumonia Sepsis criteria met with leukocytosis, high lactic acid, tachycardia, he has been afebrile, most likely source is aspiration pneumonia, UA negative He has received ceftriaxone and Flagyl in the ER, I would continue same regimen for now, nasal swab for MRSA screening, no p revious admission or IV antibiotics in last 90 days He is on mechanical soft diet with Isosource at the intermediate Currently tolerating BiPAP Acute hypoxic hypercarbic respiratory failure Improving on BiPAP Mentation improving Closely monitor in ICU, patient is full code with high risk for intubation PCO2 and pH improved after 2 hours of BiPAP usage No active respiratory distress Spastic hemiparesis secondary to CVA I would continue his baclofen and Effexor Continue aspirin and statin For now I would hold opioids and aripiprazole to avoid sedating effect Continue Keppra Oropharyngeal dysphagia secondary to stroke with expressive aphasia He is attending speech therapy at the intermediate I would keep him n.p.o. for now Speech therapy to see if we can modify his diet to prevent aspiration recurrence Full code DVT prophylaxis Lovenox N.p.o. for now Attestations Medical Necessity Statement*: Anticipating stay in the hospital cross more than 2 midnights continued management for septic due to aspiration pneumonia Time Spent in Patient Care: 60 Coding Level of Care Code Acute Unit Assembler for [facility] Fwd Diagnoses Sepsis A41.9 Altered mental status R41.82 Altered mental status type: unspecified COPD (chronic obstructive pulmonary disease) J44.9 Spastic hemiparesis affecting dominant side G81.10 Aspiration pneumonia J69.0 Aspiration pneumonia type: unspecified Laterality: right Lung location: lower lobe of lung Acute respiratory failure with hypoxia and hypercapnia J96.01; J96.02
[2020-02-04 23:10] VITALS: BP 124/86; PULSE 84; RESP 17; O2SAT 98
--- NOTE | 2020-02-04 23:24 | ECG_ITS ---
Measurements Intervals [place] Rate: 103 P: OR: 0 QRS: -6 QRSD: 73 T: 51 QT: 324 QTc: 424 SUPRAVENTRICULAR TACHYCARDIA SEPTAL MYOCARDIAL INFARCTION , OF INDETERMINATE AGE [40+ ms Q WAVE IN V1/V2] Compared to ECG 04/03/2016 08:54:29 T-wave abnormality no longer present Heavy baseline artifact, need to repeat the study Electronically Signed On 02-04-2020 21:00:37 CDT by Jhon Lin M.D. [email or web address]
[2020-02-05] VITALS (22 sets, daily range): BP systolic 100–157; BP diastolic 66–89; PULSE 84–98; RESP 16–46; TEMP 36.5–37.3; O2SAT 91–97
[2020-02-05] MEDS: ipratropium-albuterol 3 mL Neb INHALATION ×4 (00:05→21:07)
[2020-02-05 00:50] LABS: Troponin 5 6HR 12.74 ng/mL (0-15); Troponin 5 6HR Delta 2.74 ng/L (0-12)
[2020-02-05] MEDS: cefTRIAXone 1,000 MG in sodium chloride 0.9% (plus) 50 ML 100 MG IV (00:55)
[2020-02-05] MEDS: dextrose 5%-sod chloride 0.45% 1,000 ML 30 ML IV (01:07)
[2020-02-05] MEDS: enoxaparin 40 mg/0.4 mL Syringe SUBCUT (01:07)
[2020-02-05 03:55] LABS: ABG PCO2 41.6 mmHg (35-45); ABG PH Result 7.43 (7.35-7.45); Arterial Blood Gas Hematocrit 41.5 % (42-52); Base Excess ABG 2.7 mmol/L (-2.0-2.0); Blood Gas Allen Test Pos; Blood Gas Sample Site Radial, left; Blood Gas Sample Type Arterial; HCO3 ABG 27.4 mmol/L (22-26); Oxygen Device BIPAP; PO2 ABG 66.6 mmHg (80.0-100.0)
[2020-02-05 05:38] LABS: Basophils % 0.2 %; Eosinophils % 0.1 %; Hematocrit 38.5 % (42.0-52.0); Hemoglobin 12.4 g/dL (11.7-16.6); Lymphocytes # 0.9 10^3/uL (0.8-4.8); Lymphocytes % 5.2 %; Mean Corpuscular HGB Conc 32.2 g/dL (30.0-36.0); Mean Corpuscular Hemoglobin 29.4 pg (28.0-34.0); Mean Corpuscular Volume 91.2 fL (80-94); Mean Platelet Volume 9.5 fL (7.4-10.4); Monocytes # 0.8 10^3/uL (0.2-0.9); Monocytes % 4.8 %; Neutrophils # 15.6 10^3/uL (1.8-7.7); Neutrophils % 89.4 %; Nucleated Red Blood Cells % 0 %; Platelet Count 258 10^3/cmm (130-400); Red Blood Count 4.22 10^6/uL (4.1-5.3); Red Cell Distribution Width 13.7 % (12.1-15.1); White Blood Count 17.4 10^3/uL (4.0-10.0)
[2020-02-05 05:53] LABS: Blood Urea Nitrogen 15 mg/dL (8-23); Calcium 9.1 mg/dL (8.5-10.5); Carbon Dioxide 26 mmol/L (22-29); Chloride 102 mmol/L (98-107); Creatinine Clr Calc Pharmacy 94.1244; Glomerular Filtration Rate 112.8 mL/min (90-130); Glucose 146 mg/dL (65-115); Osmolality Calculated 285 mOsm/kg (285-295); Sodium 138 mmol/L (136-145)
[2020-02-05] MEDS: aspirin 325 mg Tablet PEG-TUBE (08:06)
[2020-02-05] MEDS: metroNIDAZOLE 500 MG Tablet PEG-TUBE ×3 (08:06→20:46)
[2020-02-05] MEDS: atorvastatin 40 mg Tablet 80 MG PT (08:06)
[2020-02-05] MEDS: baclofen 10 mg Tablet PEG-TUBE ×3 (08:06→20:46)
--- NOTE | 2020-02-05 14:18 | PC.NURSE ---
Patient daughter Clara called and stated that she wanted the DNR paperwork 10/29/18 to remain active with no changes at this time. [end]
--- NOTE | 2020-02-05 14:26 | PM.PN ---
Subjective Subjective: Interval history: Overnight labs and H&P reviwed. patient continues to be lethargic, weak, only mumbles in response to most questions. Medications: Reviewed: Yes Vitals/I&O/Wt Last Vital Signs Temp 99.2 F 02/05/20 11:14 Pulse 98 02/05/20 13:27 Resp 16 02/05/20 11:14 BP 128/76 02/05/20 11:14 Pulse Ox 95 02/05/20 13:27 02/04/20 02/05/20 02/05/20 22:59 06:59 14:59 Intake Total 250 / 250 Output Total 600 / 600 Balance -350 / -350 Weight last 48 hrs Weight 77.111 kg Physical Exam Narrative: EXAM NARRATIVE: GEN: Awake, unable to assess orientation because of slurred speech CVS: S1S2 N RS: B/L coarse breath sounds Abd: Soft, nt/nd , bs+ UX INTERACTION DESIGNER: R hemiparesis, speech slurred Urinary Catheter Management^: Rodas: Cath Placed During This Visit: yes Reason for Continuing Indwelling Catheter: Acute Urinary Retention or Obstruction Urinary Catheter Date of Insertion: 02/04/20 Urinary Catheter Time of Insertion: 21:38 Data : 02/05/20 05:14 02/05/20 05:14 Micro: Microbiology 02/04/20 00:15 Legionella Urinary Antigen - Final Urine,Voided Bacterial Antigens - Final 02/04/20 18:14 Blood Culture - Preliminary Blood SPECIMEN COLLECTED 02/04/20 18:10 Blood Culture - Preliminary Blood SPECIMEN COLLECTED A&P Assessment and plan (1) Sepsis: Status: Acute (2) Altered mental status: Status: Acute Qualifiers: Altered mental status type: unspecified Qualified Code(s): R41.82 - Altered mental status, unspecified (3) COPD (chronic obstructive pulmonary disease): Status: Acute (4) Spastic hemiparesis affecting dominant side: Status: Acute (5) Aspiration pneumonia: Status: Acute Qualifiers: Aspiration pneumonia type: unspecified Laterality: right Lung location: lower lobe of lung Qualified Code(s): J69.0 - Pneumonitis due to inhalation of food and vomit (6) Acute respiratory failure with hypoxia and hypercapnia: Status: Acute Additional A&P Information 1. Sepsis, likely secondary to aspiration pneumonia per history Sepsis criteria met with leukocytosis, high lactic acid, tachycardia, most likely source is aspiration pneumonia, UA negative He has received ceftriaxone and Flagyl in the ER, will continue same pending MRSA screening He is on mechanical soft diet with Isosource at the [facility], though after discussion with PCP , it appears that the oral feeding is more on patient's insistence. Patient previously has a DNR/DNI at the [place], with the understanding that he remains at a high risk of aspiration if continuing to take oral intake. Off bipap this morning, able to be weaned off this morning, now on 3lpm via nasal canula and maintaining 02 sat. Bipap prn to continue 2. Acute hypoxic hypercarbic respiratory failure Improving on BiPAP PCO2 and pH improved after 2 hours of BiPAP usage CXR shows chronic obstructive pulmonary disease with right lower lung interstitial fibrosis. Duonebs q4h inhalation 3. Spastic hemiparesis secondary to CVA continue his baclofen and Effexor Continue aspirin and statin Continue Keppra 4. Oropharyngeal dysphagia secondary to stroke with expressive aphasia Prior barium swallow with evidence of laryngeal penetration Continue NPO strictly 5. Altered mental status due to metabolic encephalopathy from sepsis 6. Covid testing as requested by [place] Code status: full cod ein system, however per [place], patient has been DNR/DNI. Left message to discuss with patient's daughter- awaiting callback. DVT prophylaxis Lovenox N.p.o. strictly. Start IVF NS 75cc/hr Attestations Medical Necessity Statement*: sepsis, need for iv abx, altered mentation Coding Level of Care Code Acute Database Management Specialist for [facility] Diagnoses Sepsis A41.9 Altered mental status R41.82 Altered mental status type: unspecified COPD (chronic obstructive pulmonary disease) J44.9 Spastic hemiparesis affecting dominant side G81.10 Aspiration pneumonia J69.0 Aspiration pneumonia type: unspecified Laterality: right Lung location: lower lobe of lung Acute respiratory failure with hypoxia and hypercapnia J96.01; J96.02
[2020-02-05] MEDS: sodium chloride 0.9% 1,000 ML 75 ML IV (14:53)
[2020-02-05] MEDS: acetaminophen 650 mg/20.3 mL UDC PEG-TUBE (17:54)
[2020-02-05] MEDS: polyethylene glycol 3350 Pkt 17 gm PEG-TUBE (20:46)
--- NOTE | 2020-02-05 21:02 | PC.NURSE ---
aspiration precautions pt's HOB remains elevated and locked at 30 degrees, suction at bedside.
[2020-02-06] VITALS (12 sets, daily range): BP systolic 142–164; BP diastolic 74–92; PULSE 85–95; RESP 16–24; TEMP 36.7–37.3; O2SAT 92–98
[2020-02-06] MEDS: cefTRIAXone 1,000 MG in sodium chloride 0.9% (plus) 50 ML 100 MG IV (00:22)
[2020-02-06] MEDS: enoxaparin 40 mg/0.4 mL Syringe SUBCUT (00:22)
[2020-02-06] MEDS: sodium chloride 0.9% 1,000 ML 75 ML IV (05:07)
[2020-02-06 05:47] LABS: Basophils % 0.3 %; Eosinophils # 0.2 10^3/uL (0.0-0.8); Eosinophils % 1.9 %; Hematocrit 39.3 % (42.0-52.0); Hemoglobin 12.6 g/dL (11.7-16.6); Lymphocytes # 0.9 10^3/uL (0.8-4.8); Lymphocytes % 7.5 %; Mean Corpuscular HGB Conc 32.1 g/dL (30.0-36.0); Mean Corpuscular Hemoglobin 29.2 pg (28.0-34.0); Mean Platelet Volume 9.3 fL (7.4-10.4); Monocytes # 0.6 10^3/uL (0.2-0.9); Monocytes % 5.5 %; Neutrophils # 9.5 10^3/uL (1.8-7.7); Neutrophils % 84.5 %; Nucleated Red Blood Cells % 0 %; Platelet Count 244 10^3/cmm (130-400); Red Blood Count 4.32 10^6/uL (4.1-5.3); Red Cell Distribution Width 13.5 % (12.1-15.1); White Blood Count 11.3 10^3/uL (4.0-10.0)
[2020-02-06 06:05] LABS: Lactate (Lactic Acid level) 1.4 mmol/L (0.5-2.2)
[2020-02-06 06:06] LABS: Alanine Aminotransferase 81 U/L (0-41); Albumin Level 3.3 g/dL (3.5-5.2); Alkaline Phosphatase 91 IU/L (40-130); Anion Gap 15.4 (5-19); Aspartate Amino Transferase 61 U/L (0-40); Blood Urea Nitrogen 11 mg/dL (8-23); Calcium 8.9 mg/dL (8.5-10.5); Carbon Dioxide 25 mmol/L (22-29); Chloride 105 mmol/L (98-107); Creatinine Clr Calc Pharmacy 94.1244; Glomerular Filtration Rate 166.4 mL/min (90-130); Glucose 111 mg/dL (65-115); Osmolality Calculated 291 mOsm/kg (285-295); Potassium 3.4 mmol/L (3.5-5.1); Sodium 142 mmol/L (136-145); Total Bilirubin 0.7 mg/dL (0.15-1.2); Total Protein 6.3 g/dL (6.6-8.7)
[2020-02-06 06:10] LABS: D Dimer 0.73 ug/mIFEU (0-0.59)
[2020-02-06] MEDS: ipratropium-albuterol 3 mL Neb INHALATION (08:35)
[2020-02-06] MEDS: aspirin 325 mg Tablet PEG-TUBE (08:39)
[2020-02-06] MEDS: atorvastatin 40 mg Tablet 80 MG PT (08:40)
[2020-02-06] MEDS: baclofen 10 mg Tablet PEG-TUBE ×3 (08:40→21:38)
[2020-02-06] MEDS: metroNIDAZOLE 500 MG Tablet PEG-TUBE ×3 (08:40→21:39)
[2020-02-06] MEDS: acetaminophen 650 mg/20.3 mL UDC PEG-TUBE ×3 (08:41→21:41)
--- NOTE | 2020-02-06 11:59 | CTR_ITS ---
PROCEDURE INFORMATION: Exam: CT Angiography Chest With Contrast Exam date and time: 02/06/2020 4:53 PM Age: 64 years old Clinical indication: Dyspnea; Prior surgery; Surgery type: Peg tube; Additional info: Elevared d dimer, respiratory distress TECHNIQUE: Imaging protocol: Computed tomographic angiography of the chest with intravenous contrast. 3D rendering: MIP and/or 3D reconstructed images were created by the technologist. Radiation optimization: All CT scans at this facility use at least one of these dose optimization techniques: automated exposure control; mA and/or kV adjustment per patient size (includes targeted exams where dose is matched to clinical indication); or iterative reconstruction. Contrast material: OMNI 350; Contrast volume: 95 ml; Contrast route: IV; COMPARISON: CTA Chest-Pulmonary Emb [id number] 12/30/2014 1:39 PM RADIATION DOSE METRICS: Total DLP: 633.59 mGy-cm FINDINGS: Pulmonary arteries: There is no pulmonary embolus. Aorta: The ascending thoracic aorta is enlarged measuring 4.2 cm. This is unchanged. There are [id number] atherosclerotic changes in the thoracic aorta. Lungs: There is severe emphysematous changes with mild apical scarring. There is some mild ground-glass opacity in the lung bases concerning for mild pneumonitis or interstitial CHF. No dense lobar consolidation. Pleural space: Unremarkable. No pneumothorax. No pleural effusion. Heart: Unremarkable. No cardiomegaly. No pericardial effusion. Lymph nodes: Subcentimeter lymph nodes are noted in the mediastinum. There is no pathologic adenopathy. Stomach and bowel: There is a PEG tube in good position. Bones/joints: There is unchanged mild height loss and Schmorl's nodes at T12. No acute fracture. There are moderate degenerative changes in the spine. Soft tissues: Unremarkable. Other findings: The exam is limited by extensive motion artifact. There is no dissection. CT/CT angio chest PE protcl [id number] IMPRESSION: 1. There is no pulmonary embolus. 2. Unchanged 4.2 cm aneurysm of the ascending thoracic aorta. No dissection or leak. 3. There is some mild ground-glass opacity in the lung bases concerning for mild pneumonitis or interstitial CHF. Underlying severe COPD is noted. Radiation Dose CTDIVOL = (mGy): DLP = 633.59 (mGy-cm)
--- NOTE | 2020-02-06 12:00 | USCV_ITS ---
Nakul Nolasco Age: 64 Gender: M : 1955 Exam Date: 02/06/2020 14:34 Ordering Phys: Sara Pichardo MD Technologist: Fide Ho Exam Location: [facility] [place] Indication: SWELLING HISTORY: Lower extremity swelling. PROCEDURES: Venous duplex imaging was performed in bilateral lower extremities. The following venous structures were evaluated: common femoral vein, profunda vein, proximal portion of the greater saphenous vein, superficial femoral vein, and the popliteal vein. In addition, the posterior tibial and peroneal trunk were evaluated. Serial compression, augmentation maneuvers, and spectral Doppler flow evaluation were performed. FINDINGS: Normal 2-D Doppler and augmentation and compressibility throughout the lower extremity venous structures. Additional imaging through the proximal calf veins also reveals no thrombus. Limited evaluation of the greater saphenous vein is patent with no thrombus.. CONCLUSIONS No evidence of DVT in the above-mentioned identifiable veins. Dr Jhon Lin MD [facility] (Electronically Signed) Final Date: 06 February 2020 16:46 S
--- NOTE | 2020-02-06 15:14 | P.PN_ITS ---
Subjective Subjective: Interval history: no significant change in mental status today. Appears more comfortable, better hydrated. D dimer mildy elevated, tmax 99.2F. Leukocytosis improving Medications: Reviewed: Yes Vitals/I&O/Wt Last Vital Signs Temp 99.2 F 02/06/20 11:23 Pulse 95 02/06/20 11:23 Resp 17 02/06/20 11:23 BP 142/89 02/06/20 11:23 Pulse Ox 92 02/06/20 11:23 02/06/20 02/06/20 02/06/20 06:59 14:59 22:59 Intake Total 1000 / 1000 Output Total 1100 / 1775 900 / 900 Balance -100 / -775 -900 / -900 Weight last 48 hrs Weight 77.111 kg Physical Exam Narrative: EXAM NARRATIVE: GEN: Awake, disoriented, speech slurred CVS: S1S2 N RS: CTA B/L Abd: Soft, nt/nd , bs+ Urinary Catheter Management^: Rodas: Cath Placed During This Visit: yes Reason for Continuing Indwelling Catheter: Acute Urinary Retention or Obstruction Urinary Catheter Date of Insertion: 02/04/20 Urinary Catheter Time of Insertion: 21:38 Data : 02/06/20 05:39 02/06/20 05:39 Micro: Microbiology 02/04/20 18:14 Blood Culture - Preliminary Blood NEGATIVE TO DATE 02/04/20 18:10 Blood Culture - Preliminary Blood NEGATIVE TO DATE 02/05/20 04:37 MRSA Culture - Final Nose A&P Assessment and plan (1) Sepsis: Status: Acute (2) Altered mental status: Status: Acute Qualifiers: Altered mental status type: unspecified Qualified Code(s): R41.82 - Altered mental status, unspecified (3) COPD (chronic obstructive pulmonary disease): Status: Acute (4) Spastic hemiparesis affecting dominant side: Status: Acute (5) Aspiration pneumonia: Status: Acute Qualifiers: Aspiration pneumonia type: unspecified Laterality: right Lung location: lower lobe of lung Qualified Code(s): J69.0 - Pneumonitis due to inhalation of food and vomit (6) Acute respiratory failure with hypoxia and hypercapnia: Status: Acute Additional A&P Information 1. Sepsis, likely secondary to aspiration pneumonia per history Sepsis criteria met with leukocytosis, high lactic acid, tachycardia, most likely source is aspiration pneumonia, UA negative He has received ceftriaxone and Flagyl in the ER, will continue same MRSA screening +, however patient improving with current regimen, will hold off on adding vancomycin He [facility]. For now he is npo due to high risk of aspiration, on IVF with better hydration today D dime mildly elevated, t max 99.2, will evaluate for PE Off bipap now Bipap prn to continue 2. Acute hypoxic hypercarbic respiratory failure PCO2 and pH improved after 2 hours of BiPAP usage CXR shows chronic obstructive pulmonary disease with right lower lung interstitial fibrosis. Duonebs q4h inhalation 3. Spastic hemiparesis secondary to CVA continue his baclofen and Effexor Continue aspirin and statin Continue Keppra 4. Oropharyngeal dysphagia secondary to stroke with expressive aphasia Prior barium swallow with evidence of laryngeal penetration Continue NPO status 5. Altered mental status due to metabolic encephalopathy from sepsis + underlying CVA 6. Covid testing as requested by NH, later cancelled as NH called back to [facility] this is not needed if not clinically indicated. Currently low suspicion Code status: DNR/DNI DVT prophylaxis Lovenox Attestations Medical Necessity Statement*: pending CTA chest and LE doppler Coding Level of Care Code Acute Senior Oracle Developer for Chg Fwd Diagnoses Sepsis A41.9 Altered mental status R41.82 Altered mental status type: unspecified COPD (chronic obstructive pulmonary disease) J44.9 Spastic hemiparesis affecting dominant side G81.10 Aspiration pneumonia J69.0 Aspiration pneumonia type: unspecified Laterality: right Lung location: lower lobe of lung Acute respiratory failure with hypoxia and hypercapnia J96.01; J96.02
[2020-02-06] MEDS: D5-NS 0.45% + KCL 20 mEq 20 MEQ/1,000 ML BAG 75 MEQ IV (17:11)
[2020-02-06] MEDS: iohexol 350 mg/mL 100 mL Btl IV (18:01)
--- NOTE | 2020-02-06 19:54 | PC.NURSE ---
Shift Assessment At baseline Pt has right side weakness, cannot move right leg, follows commands, but has slurred speech due to previous CVAs.
[2020-02-06] MEDS: polyethylene glycol 3350 Pkt 17 gm PEG-TUBE (21:38)
[2020-02-07] MEDS: cefTRIAXone 1,000 MG in sodium chloride 0.9% (plus) 50 ML 100 MG IV (01:44)
[2020-02-07 03:13] VITALS: BP 152/94; PULSE 93; RESP 20; TEMP 36.4; O2SAT 94
--- NOTE | 2020-02-07 03:22 | PC.NURSE ---
Pt heard yelling from his room, nurse went to check on him. Pt noted to be possibly choking on his secretions and had removed his nasal cannula, Pt lips appeared to be purple in color, oxygen immediately replaced and Pt mouth suctioned, noted Pt's color improved very quickly, Pt was incontinent of bowel. Changed and repositioned Pt, he states that he is feeling better. Requested that RT to place continuous pulse ox so that nursing staff can be more aware of Pt situation.
[2020-02-07 04:53] LABS: Basophils % 0.3 %; Eosinophils # 0.2 10^3/uL (0.0-0.8); Hematocrit 42.6 % (42.0-52.0); Hemoglobin 13.7 g/dL (11.7-16.6); Lymphocytes # 0.7 10^3/uL (0.8-4.8); Lymphocytes % 6.6 %; Mean Corpuscular HGB Conc 32.2 g/dL (30.0-36.0); Mean Corpuscular Hemoglobin 28.9 pg (28.0-34.0); Mean Corpuscular Volume 89.9 fL (80-94); Mean Platelet Volume 9.6 fL (7.4-10.4); Monocytes # 0.8 10^3/uL (0.2-0.9); Monocytes % 7.2 %; Neutrophils # 9.1 10^3/uL (1.8-7.7); Neutrophils % 83.7 %; Nucleated Red Blood Cells % 0 %; Platelet Count 292 10^3/cmm (130-400); Red Blood Count 4.74 10^6/uL (4.1-5.3); Red Cell Distribution Width 13.2 % (12.1-15.1); White Blood Count 10.9 10^3/uL (4.0-10.0)
[2020-02-07 06:06] LABS: Alanine Aminotransferase 65 U/L (0-41); Albumin Level 3.3 g/dL (3.5-5.2); Alkaline Phosphatase 96 IU/L (40-130); Anion Gap 15.3 (5-19); Aspartate Amino Transferase 59 U/L (0-40); Blood Urea Nitrogen 8 mg/dL (8-23); Calcium 9.1 mg/dL (8.5-10.5); Carbon Dioxide 24 mmol/L (22-29); Chloride 101 mmol/L (98-107); Creatinine Clr Calc Pharmacy 94.1244; Globulin 3.5 g/dL (1.3-4.6); Glomerular Filtration Rate 166.4 mL/min (90-130); Glucose 138 mg/dL (65-115); Osmolality Calculated 282 mOsm/kg (285-295); Potassium 3.3 mmol/L (3.5-5.1); Sodium 137 mmol/L (136-145); Total Bilirubin 0.5 mg/dL (0.15-1.2); Total Protein 6.8 g/dL (6.6-8.7)
[2020-02-07] MEDS: enoxaparin 40 mg/0.4 mL Syringe SUBCUT (06:12)
[2020-02-07 07:13] VITALS: BP 157/96; PULSE 88; RESP 18; TEMP 37; O2SAT 96
[2020-02-07] MEDS: aspirin 325 mg Tablet PEG-TUBE (07:34)
[2020-02-07] MEDS: metroNIDAZOLE 500 MG Tablet PEG-TUBE ×2 (07:35→14:22)
[2020-02-07] MEDS: atorvastatin 40 mg Tablet 80 MG PT (07:35)
[2020-02-07] MEDS: baclofen 10 mg Tablet PEG-TUBE ×2 (07:35→14:22)
[2020-02-07] MEDS: dextrose 5%-sod chloride 0.45% 1,000 ML 30 ML IV (07:36)
[2020-02-07] MEDS: D5-NS 0.45% + KCL 20 mEq 20 MEQ/1,000 ML BAG 75 MEQ IV (07:36)
[2020-02-07] MEDS: acetaminophen 650 mg/20.3 mL UDC PEG-TUBE ×2 (07:57→14:22)
[2020-02-07 08:00] VITALS: PULSE 74; RESP 18; O2SAT 94
[2020-02-07] MEDS: ipratropium-albuterol 3 mL Neb INHALATION (08:00)
--- NOTE | 2020-02-07 09:05 | PC.SOCIAL ---
IMM Page 2 of IMM given to patient. Initialed, dated, and timed and placed in chart.
[2020-02-07 12:00] VITALS: BP 145/97; PULSE 87; RESP 20; TEMP 37; O2SAT 91
--- NOTE | 2020-02-07 12:29 | P.DS_ITS ---
Discharge Providers Date of Admission: 02/04/20 22:29 Date of Discharge: February 07, 2020 Attending Provider at Admission: Richard Caraballo MD Attending Provider at Discharge: Sara Pichardo MD Primary Care Provider: Rex Bernardo MD Diagnoses at Discharge Discharge Diagnosis (1) Sepsis: Status: Acute (2) Altered mental status: Status: Acute Qualifiers: Altered mental status type: unspecified Qualified Code(s): R41.82 - Altered mental status, unspecified (3) COPD (chronic obstructive pulmonary disease): Status: Acute (4) Spastic hemiparesis affecting dominant side: Status: Acute (5) Aspiration pneumonia: Status: Acute Qualifiers: Aspiration pneumonia type: unspecified Laterality: right Lung location: lower lobe of lung Qualified Code(s): J69.0 - Pneumonitis due to inhalation of food and vomit (6) Acute respiratory failure with hypoxia and hypercapnia: Status: Acute Reason for Visit Reason for Visit: RESP DISTRESS, AFIB Hospital Course Discharge Summary: Nakul Nolasco is a 64 year old male who is a resident of [facility] with past medical history of CVA with residual right-sided spastic hemiparesis, oropharyngeal dysphagia currently on mechanical soft diet, COPD, anxiety/depression, recurrent aspirations who was admitted on 02/03 with hypoxic hypercapneic respiratory failure. He improved quickly with BIpap ventilation and has now been off bipap for 2 days. PE was ruled out by negative CTA. CT shows RLL pneumonitis, most likely secondary to aspiration pneumonitis. He received Ceftriaxone and Flagyl with improvement in symtpoms. he was kept NPO during admissiont o acoid any further aspiration events. WBC improved from 18 to 10 during admission. he has remained afebrile and hemodynamically stable ,oxygen was able to be weaned down from 15lpm to 3lpm. He remains at his basline status at this time which is chronically ill but currently stable. Physical Exam Narrative: EXAM NARRATIVE: GEN: Awake, alert, slurred speech, appears to be at baseline CVS: S1S2 N RS: CTA B/L Abd: Soft, nt/nd , bs+ MECHANIC SENIOR: known R hemiparesis, slurred speech Urinary Catheter Management^: Rodas: Cath Placed During This Visit: yes Reason for Continuing Indwelling Catheter: Chronic Indwelling Urinary Catheter on Admission Urinary Catheter Date of Insertion: 02/04/20 Urinary Catheter Time of Insertion: 21:38 Discharge Data Data Completed and Pending: Completed Studies During Hospitalization Category Date Time Status CT abdomen pelvis w con* [id number] Stat Cat Scan 02/04/20 17:[address] angio chest PE protcl 11601 Rout ine Cat Scan 02/06/20 11:[address] head wo con* 7 [id number] Stat Cat Scan 02/04/20 22:36 Completed XR chest 1V liz ble [id number] Stat Exams 02/04/20 17:23 [place] [id number] Routin e Ultrasound 02/06/20 12:00 Completed Pending at discharge Category Date Time Status Blood Culture Sta t Lab 02/04/20 18:14 Results CMP [Comprehensiv e Metabolic Panel] AM LABS Lab 02/08/20 04:00 Ordered Complete Blood Co unt w/Auto AM LABS Lab 02/08/20 04:00 Ordered Sputum Culture an d Gram Stain Stat Lab 02/04/20 23:25 Uncollected Labs from last 24 hours 02/07/20 02/07/20 05:39 04:05 WBC 10.9 H RBC 4.74 Hgb 13.7 Hct 42.6 MCV 89.9 MCH 28.9 MCHC 32.2 RDW 13.2 Plt Count 292 MPV 9.6 Neut % (Auto) 83.7 Lymph % (Auto) 6.6 Roosevelt % (Auto) 7.2 Eos % (Auto) 2.0 Baso % (Auto) 0.3 Neut # (Auto) 9.1 H Lymph # (Auto) 0.7 L Roosevelt # (Auto) 0.8 Eos # (Auto) 0.2 Baso # (Auto) 0.0 Nucleated RBC % (a uto) 0 Nucleated RBCs # 0.0 Sodium 137 Potassium 3.3 L Chloride 101 Carbon Dioxide 24 Anion Gap 15.3 BUN 8 Creatinine 0.5 L GFR Calculation 166.4 H Glucose 138 H Calculated Osmolal ity 282 L Calcium 9.1 Total Bilirubin 0.5 AST 59 H ALT 65 H Alkaline Phosphata se 96 Total Protein 6.8 Albumin 3.3 L Globulin 3.5 Vitals: Last Vital Signs Temp 98.6 F 02/07/20 12:00 Pulse 87 02/07/20 12:00 Resp 20 H 02/07/20 12:00 BP 145/97 02/07/20 12:00 Pulse Ox 91 02/07/20 12:00 Discharge Plan Discharge Patient Disposition: Xfer SNF Condition: Stable Prescriptions: New cephalexin [Keflex] 500 mg capsule 500 mg PO BID 2 Days Qty: 4 RF: 0 Continued aripiprazole [Abilify] 2 mg tablet 2 mg PO DAILY RF: 0 acetaminophen [Tylenol] 325 mg tablet 650 mg PO QID PRN (Reason: Pain) RF: 0 magnesium hydroxide [Milk of Magnesia] 400 mg/5 mL suspension 5 ml PO DAILY PRN (Reason: Constipation) RF: 0 gabapentin 600 mg tablet 600 mg PO TID RF: 0 Florastor 250 mg capsule 250 mg PO BID Qty: 120 RF: 0 fluticasone propionate 50 mcg/actuation spray,suspension 2 spray INTRANASAL DAILY Qty: 9.9 RF: 6 atorvastatin 80 mg Tablet 80 mg PO DAILY RF: 0 albuterol sulfate 2.5 mg /3 mL (0.083 %) Solution For Nebulization 2.5 mg INHALATION Q6H PRN (Reason: Shortness Of Breath) RF: 0 aspirin 325 mg Tablet 325 mg PO DAILY RF: 0 hydrocodone-acetaminophen 7.5-325 mg Tablet 1 tab PO DAILY PRN (Reason: Pain) RF: 0 Miralax 17 gram/dose Powder 17 g PO BEDTIME RF: 0 Keppra 1,000 mg Tablet 1,000 mg PO BID RF: 0 Isosource 1.5 Markus 0.07 gram-1.5 kcal/mL Liquid See Rx Instructions .ROUTE .COMPLEX RF: 0 Effexor XR 75 mg capsule,extended release 24hr 75 mg PO BID RF: 0 baclofen 10 mg tablet 10 mg PO TID RF: 0 Discharge Orders: Discharge Order (Routine); Ordered 02/07/20 Ordered By: Sara Pichardo Referrals: Rex Bernardo MD [Primary Care Provider] - Discharge Diet: Resume prior tube feeds Discharge Activity: Resume usual activity and Oxygen as instructed Discharge Attestations Time Spent in Discharge Care*: less than 30 min Quality Metrics Clinical Quality Measures During this hospital stay, did patient experience: None Coding Level of Care Code Acute Drilling Foreman for Tobing Fwd Diagnoses Sepsis A41.9 Altered mental status R41.82 Altered mental status type: unspecified COPD (chronic obstructive pulmonary disease) J44.9 Spastic hemiparesis affecting dominant side G81.10 Aspiration pneumonia J69.0 Aspiration pneumonia type: unspecified Laterality: right Lung location: lower lobe of lung Acute respiratory failure with hypoxia and hypercapnia J96.01; J96.02
[2020-02-07 12:53] VITALS: BP 145/97; PULSE 87; RESP 20; TEMP 37; O2SAT 91
== END 2020-02-07 14:36 | disposition skilled nursing facility (03) | DRG 871 ==
LOC: ER 22:35 → MEDSURG 22:51
PROVIDERS: Emergency Medicine; Family Medicine; Admitting Provider Internal Medicine; Family Provider Internal Medicine; PCP Internal Medicine; Visit Provider Student in an Organized Health Care Education/Training Program
DX: A41.9 Sepsis, unspecified organism (principal); J69.0 Pneumonitis due to inhalation of food and vomit; J96.01 Acute respiratory failure with hypoxia; J96.02 Acute respiratory failure with hypercapnia; I69.351 Hemiplegia and hemiparesis following cerebral infarction affecting right dominant side; J44.9 Chronic obstructive pulmonary disease, unspecified; I69.391 Dysphagia following cerebral infarction; R13.12 Dysphagia, oropharyngeal phase; F41.8 Other specified anxiety disorders; Z79.82 Long term (current) use of aspirin; K21.9 Gastro-esophageal reflux disease without esophagitis; I10 Essential (primary) hypertension
CPT/HCPCS: 12345; 36415; 36600; 51702; 70450; 71045; 71275; 74177; 80048; 80051; 80053; 81003; 82803; 82810; 83605; 83880; 83986; 84484; 85025; 85378; 86403; 87040; 87449; 87641; 93005; 93970; 94640; 94660; 94762; 96372; 97110; 97161; 97530; 99283; J0696; J1650; J1956; J7030; J7799; Q9967; S0030

== ENCOUNTER 2020-03-16 15:39 | Outpatient (CLI) | payer OTHER, MEDICAID, SELFPAY ==
[2020-03-16 15:54] LABS: Basophils # 0.1 10^3/uL (0.0-0.1); Eosinophils # 0.3 10^3/uL (0.0-0.8); Hematocrit 44.4 % (42.0-52.0); Hemoglobin 13.9 g/dL (11.7-16.6); Lymphocytes # 1.6 10^3/uL (0.8-4.8); Lymphocytes % 18.7 %; Mean Corpuscular HGB Conc 31.3 g/dL (30.0-36.0); Mean Corpuscular Hemoglobin 28.7 pg (28.0-34.0); Mean Corpuscular Volume 91.7 fL (80-94); Mean Platelet Volume 11.5 fL (7.4-10.4); Monocytes # 0.8 10^3/uL (0.2-0.9); Monocytes % 9.3 %; Neutrophils # 5.55 10^3/uL (1.8-7.7); Neutrophils % 66.8 %; Nucleated Red Blood Cells % 0 %; Platelet Count 229 10^3/cmm (130-400); Red Blood Count 4.84 10^6/uL (4.1-5.3); Red Cell Distribution Width 13.2 % (12.1-15.1); White Blood Count 8.3 10^3/uL (4.0-10.0)
== END 2020-03-16 15:40 | disposition home or self-care (01) ==
LOC: LAB 15:40
PROVIDERS: PCP Internal Medicine; Visit Provider Internal Medicine
DX: J44.9 Chronic obstructive pulmonary disease, unspecified (principal)
CPT/HCPCS: 85025

== ENCOUNTER 2021-01-04 08:31 | Outpatient (RCR) | payer OTHER, MEDICAID, SELFPAY | END 2021-01-31 23:59 | disposition home or self-care (01) | LOC: SST 08:31 | PROVIDERS: PCP Internal Medicine; Referring Provider Internal Medicine; Visit Provider Internal Medicine | DX: R47.01 Aphasia (principal) | CPT/HCPCS: 92612 ==

== ENCOUNTER 2021-11-07 06:20 | Day surgery (SDC) | payer MEDICARE, MEDICAID, SELFPAY ==
[2021-11-02 14:03] VITALS: BMI 23.6
--- NOTE | 2021-11-07 07:02 | P.ANESASSM_ITS ---
Pre-Anesthetic Assessment Height/Weight: Height 1.75 m Weight 72.575 kg Operation Date: 11/07/21 08:15 Proposed Procedures p Colonoscopy g0121/z12.11(Not Applicable) - Rex Bernardo MD Was Beta Stanton taken within 24 hours: N/A Was Clonidine taken within 24 hours: N/A Social No alcohol and No tobacco Hx of ETOH abuse Exam alert and regular rate & rhythm Does not verbally respond but nods head appropriately Lung sounds diminished b/l Airway Submandibular: Other (Less than two finger breadths ) Cervical ROM: Other (Limited motion) Mallampati: Class II Dentition: false Pulmonary Chronic Obstructive Pulmonary Disease (Hx of pneumonitis and acute respiratory failure. No home O2 use) CV/HEM Arrythmia (Hx of bradycardia) and Hypertension EKG 2019 SUPRAVENTRICULAR TACHYCARDIA SEPTAL MYOCARDIAL INFARCTION , OF INDETERMINATE AGE [40+ ms Q WAVE IN V1/V2] Compared to ECG 04/03/2016 08:54:29 T-wave abnormality no longer present Heavy baseline artifact, need to repeat the study Electronically Signed On 02-04-2020 21:00:37 CDT by Jhon Lin M.D. [email or web address] Dictated By: Jhon Lin MD Signed By: Jhon Lin MD Signed Date/Time: 02/04/202100 GI Feeding tube in place Dysphagia Neuropsych Cerebrovascular Accident (Right side hemiplegia w/ spasticity) and Depression Anesthetic Plan ASA status: 3 Anesthesia: Anesthesia Evaluation, General and MAC Other: I discussed with the patient risks, goals, and benefits of MAC and general anesthesia. We discussed spectrum of MAC anesthesia including conversion to general as well as possibility of recall of intraoperative stimuli including discomfort/pain. Patient agrees to proceed with MAC. Due to hx of right hemiplegia patient unable to sign complete signature but he did make his khris and his score caller signed a witness. Risk of > 500 ml blood loss (7ml/kg in children): No Medications/Allergies Home Medications Medication Instructions Recorded Confirmed Last Taken Type Saccharomyces boulardii 250 mg 250 mg PO BID #120 cap 12/17/19 11/02/21 02/04/20 Rx capsule (Florastor) acetaminophen 325 mg tablet 650 mg PO QID PRN 12/17/19 11/02/21 Unknown History (Tylenol) gabapentin 600 mg tablet 600 mg PO TID 12/17/19 11/02/21 02/04/20 History magnesium hydroxide 400 mg/5 mL 5 ml PO DAILY PRN 12/17/19 11/02/21 Unknown History oral suspension (Milk of Magnesia) fluticasone propionate 50 2 spray INTRANASAL DAILY #9.9 ml 01/13/20 11/02/21 02/04/20 Rx mcg/actuation nasal spray,suspension albuterol sulfate 2.5 mg INHALATION Q6H PRN 02/04/20 11/02/21 Unknown History aspirin 325 mg tablet 325 mg PO DAILY 02/04/20 11/02/21 02/04/20 History atorvastatin 80 mg tablet 80 mg PO DAILY 02/04/20 11/02/21 02/03/20 History baclofen 10 mg tablet 10 mg PO TID 02/04/20 11/02/21 02/04/20 History lactose-reduced food-fiber 0.07 See Rx Instructions .ROUTE .COMPLEX 02/04/20 11/02/21 02/04/20 History gram-1.5 kcal/mL liquid for tube feed (Isosource 1.5 Markus) polyethylene glycol 3350 17 17 g PO BEDTIME 02/04/20 11/02/21 02/03/20 History gram/dose oral powder (Miralax) venlafaxine 75 mg capsule,extended 75 mg PO BID 02/04/20 11/02/21 02/04/20 History release 24 hr (Effexor XR) levetiracetam 1,000 mg tablet 750 mg PO BID tab 02/10/21 11/02/21 Unknown History (Keppra) aripiprazole 2 mg tablet (Abilify) 2 mg PO DAILY #30 tab 02/17/21 11/02/21 Unknown Rx hydrocodone 7.5 mg-acetaminophen 1 tab PO BID PRN 30 Days #60 tab 07/15/21 11/02/21 Unknown Rx 325 mg tablet Allergies Allergy/AdvReac Type Severity Reaction Status Date / Time Penicillins Allergy Unknown Verified 10/20/21 12:07 [facility] Anesthesia Medical History Acute respiratory failure with hypoxia and hypercapnia Alcohol abuse, uncomplicated Analgesic rebound headache Arrhythmia, atrial Bradycardia, unspecified Cerebral infarction, unspecified COPD (chronic obstructive pulmonary disease) Dorsalgia, unspecified Dysphagia Essential (primary) hypertension Expressive aphasia GERD (gastroesophageal reflux disease) Hemiplegia and hemiparesis following cerebral infarction affecting unspecified side Hemiplegia, unspecified affecting unspecified side Hypotension, unspecified Major depressive disorder, single episode, unspecified Other malaise Other muscle spasm Pure hypercholesterolemia, unspecified Sepsis Spasticity Unspecified sequelae of cerebral infarction Surgical History PEG (percutaneous endoscopic gastrostomy) status Family History Other Hypertension Social History Smoking and tobacco status: unknown if ever smoked Alcohol intake: former Housing: [facility] Home Data Anesthesia Cardiac Studies: No Data to Display
[2021-11-07 07:25] VITALS: BP 167/99; PULSE 85; RESP 18; TEMP 36.8; O2SAT 94
[2021-11-07] MEDS: sodium chloride 0.9% 1,000 ML 30 ML IV (07:32)
--- NOTE | 2021-11-07 08:49 | W.PM.OPSFHP ---
Same Day Surgery H&P Indication for Procedure/HPI DATE OF PROCEDURE: November 07, 2021 CHIEF COMPLAINT/INDICATIONFOR SURGICAL PROCEDURE: Screening PREOP DIAGNOSIS: Screening PLANNED PROCEDURE: Operation Date: 11/07/21 08:15 Proposed Procedures p Colonoscopy g0121/z12.11(Not Applicable) - Rex Bernardo MD Medications/Allergies* Home Medications Medication Instructions Recorded Confirmed Type acetaminophen 325 mg tablet 650 mg PO QID PRN 12/17/19 11/07/21 History (Tylenol) gabapentin 600 mg tablet 600 mg PO TID 12/17/19 11/07/21 History magnesium hydroxide 400 mg/5 mL 5 ml PO DAILY PRN 12/17/19 11/07/21 History oral suspension (Milk of Magnesia) albuterol sulfate 2.5 mg INHALATION Q6H PRN 02/04/20 11/07/21 History aspirin 325 mg tablet 325 mg PO DAILY 02/04/20 11/07/21 History atorvastatin 80 mg tablet 80 mg PO DAILY 02/04/20 11/07/21 History baclofen 10 mg tablet 10 mg PO TID 02/04/20 11/07/21 History lactose-reduced food-fiber 0.07 See Rx Instructions .ROUTE .COMPLEX 02/04/20 11/07/21 History gram-1.5 kcal/mL liquid for tube feed (Isosource 1.5 Markus) polyethylene glycol 3350 17 17 g PO BEDTIME 02/04/20 11/07/21 History gram/dose oral powder (Miralax) venlafaxine 75 mg capsule,extended 75 mg PO BID 02/04/20 11/07/21 History release 24 hr (Effexor XR) levetiracetam 1,000 mg tablet 750 mg PO BID tab 02/10/21 11/07/21 History (Keppra) Allergies/Adverse Reactions Allergy/AdvReac Type Severity Reaction Status Date / Time Penicillins Allergy Unknown Verified 10/20/21 12:07 Current Medications: Generic Name Dose Route Start Last Admin Trade Name Freq PRN Reason Stop Dose Admin Sodium Chloride 1,000 mls @ 30 mls/hr 11/07/21 07:00 11/07/21 07:32 Sodium Chloride 0.9% IV 11/08/21 06:59 30 mls/hr .Q24H EVANS Administration Pertinent History/Comorbid Conditions* Medical History (Updated 06/23/21 @ 15:02 by EUGENIA Pineda) Acute respiratory failure with hypoxia and hypercapnia Alcohol abuse, uncomplicated Analgesic rebound headache Arrhythmia, atrial Bradycardia, unspecified Cerebral infarction, unspecified COPD (chronic obstructive pulmonary disease) Dorsalgia, unspecified Dysphagia Essential (primary) hypertension Expressive aphasia GERD (gastroesophageal reflux disease) Hemiplegia and hemiparesis following cerebral infarction affecting unspecified side Hemiplegia, unspecified affecting unspecified side Hypotension, unspecified Major depressive disorder, single episode, unspecified Other malaise Other muscle spasm Pure hypercholesterolemia, unspecified Sepsis Spasticity Unspecified sequelae of cerebral infarction Surgical History (Updated 10/20/21 @ 13:07 by EUGENIA Pineda) PEG (percutaneous endoscopic gastrostomy) status Family History (Updated 12/17/19 @ 13:08 by Lela Guthrie LPN) Hypertension Social History Smoking and tobacco status: unknown if ever smoked Alcohol intake: former Housing: [facility] Pertinent Exam Findings alert, oriented x 3, clear to auscultation bilaterally, regular rate & rhythm, operative site marked and procedure specific exam findings Recommendations Surgery/Procedure today Coding Level of Care Code Acute Community Service Specialist for Marimar Toussaint
[2021-11-07 09:08] VITALS: BP 135/87; PULSE 79; RESP 18; TEMP 36.2; O2SAT 100
[2021-11-07 09:28] VITALS: BP 137/91; PULSE 75; RESP 18; O2SAT 91
[2021-11-07 09:36] VITALS: BP 149/101; PULSE 76; RESP 16; O2SAT 91
--- NOTE | 2021-11-07 11:53 | ANE.PACU2 ---
Inpatient post-anesthesia follow up: Airway intact: Yes Vital signs: Temperature 97.1 F Pulse Rate 76 Respiratory Rate 16 Blood Pressure 149/101 Pulse Oximetry 91 Oxygen Delivery Me thod Room Air Oxygen Flow Rate Fraction of Inspir ed Oxygen Hydration adequate: Yes Nausea and vomiting: No Pain level: 1 Mental status: Baseline
== END 2021-11-07 09:54 | disposition home or self-care (01) ==
PROVIDERS: PCP Internal Medicine; Visit Provider Internal Medicine
PROC: 0DJD8ZZ Inspection of Lower Intestinal Tract, Via Natural or Artificial Opening Endoscopic (ICD-10-PCS; CPT 45378; principal; 2021-11-07 08:15)
DX: Z12.11 Encounter for screening for malignant neoplasm of colon (principal); K57.30 Diverticulosis of large intestine without perforation or abscess without bleeding; Z79.82 Long term (current) use of aspirin; J44.9 Chronic obstructive pulmonary disease, unspecified; I10 Essential (primary) hypertension; I69.859 Hemiplegia and hemiparesis following other cerebrovascular disease affecting unspecified side; K21.9 Gastro-esophageal reflux disease without esophagitis; E78.00 Pure hypercholesterolemia, unspecified; Z86.19 Personal history of other infectious and parasitic diseases; Z82.49 Family history of ischemic heart disease and other diseases of the circulatory system
CPT/HCPCS: 45378; J2704; J7030

== ENCOUNTER 2022-07-28 15:26 | Emergency (ER) | payer MEDICARE, MEDICAID, SELFPAY ==
[2022-07-28 15:33] VITALS: BP 137/79; PULSE 78; RESP 18; TEMP 36.8; O2SAT 91; BMI 19.2
--- NOTE | 2022-07-28 15:59 | W.ED.SOB ---
HPI - SOB/Dyspnea General: Chief Complaint: Shortness of Breath/Dyspnea Stated Complaint: SOB Time Seen by Provider: 07/28/22 15:33 Source: patient Mode of arrival: ambulatory History of Present Illness: HPI Narrative: 67-year-old male presents to the emergency room with complaints [facility]. He is somewhat short of breath at times. He gets into an abnormal respiratory pattern that he can be coached out of where he appears to be trying to cough up mucus. Patient has significant dementia and is unable to contribute to his history at all. MD elicited complaint: shortness of breath and cough Pertinent past history: COPD Onset (ago): unknown Timing: intermittent Severity: mild Review of Systems General: Reports: ROS unobtainable due to mental status PFSH ED PFSH: Medical History Acute respiratory failure with hypoxia and hypercapnia Alcohol abuse, uncomplicated Analgesic rebound headache Arrhythmia, atrial Bradycardia, unspecified Cerebral infarction, unspecified COPD (chronic obstructive pulmonary disease) Dorsalgia, unspecified Dysphagia Essential (primary) hypertension Expressive aphasia GERD (gastroesophageal reflux disease) Hemiplegia and hemiparesis following cerebral infarction affecting unspecified side Hemiplegia, unspecified affecting unspecified side Hypotension, unspecified Major depressive disorder, single episode, unspecified Other malaise Other muscle spasm Pure hypercholesterolemia, unspecified Sepsis Spasticity Unspecified sequelae of cerebral infarction Surgical History PEG (percutaneous endoscopic gastrostomy) status Family History Other Hypertension Social History Smoking and tobacco status: unknown if ever smoked Alcohol intake: former Housing: Snf Physical Exam Const: COMMON NORMALS: no acute distress GENERAL APPEARANCE: cooperative and comfortable ORIENTATION/CONSCIOUSNESS: Yes awake HENMT: COMMON NORMALS: normocephalic, atraumatic and hearing grossly normal bilaterally HEAD & SCALP: normocephalic and atraumatic Resp: COMMON NORMALS: normal respiratory effort, No retractions and No use of accessory muscles AUSCULTATION: rhonchi and wheezes Cardio: COMMON NORMALS: regular rate, regular rhythm and No murmurs present (Cardio) RATE: regular rate RHYTHM: regular rhythm GI: COMMON NORMALS: Soft to palpation and No hepatosplenomegaly present AUSCULTATION: Yes normoactive bowel sounds PALPATION: Yes Soft to palpation, No Tenderness to palpation present (GI), No Guarding due to palpation present (GI) and Yes No hepatosplenomegaly present Extremity: COMMON NORMALS: normal to inspection, capillary refill normal, no clubbing, cyanosis or edema, no calf tenderness and no pedal edema Skin: COMMON NORMALS: no rashes or lesions noted GENERAL SKIN EXAM: no rashes or lesions noted Course Vital Signs: Vital signs: Vital Signs Temperature 98.2 F 07/28/22 17:55 Pulse Rate 81 07/28/22 21:27 Respiratory Rate 22 H 07/28/22 21:27 Blood Pressure 155/86 07/28/22 21: Pulse Oximetry 94 07/28/22 21:27 Oxygen Delivery Me thod 07/28/22 19:39 Oxygen Flow Rate 2 07/28/22 19:39 MDM - SOB/Dyspnea Medical Decision Making Improved with nebulizers. Is maintaining sat well on 2 L he does intermittently have episodes where he has paroxysmal coughing as if he is trying to get something up. He can usually be coached out of these and with the nebulizer it improves. We will discharge him back on doxycycline and a steroid taper aggressive use of nebulizers follow-up with his primary care through the prison. Medical Records I reviewed the patient's medical records. Lab Data I reviewed the patient's lab results. 07/28/22 17:03 07/28/22 17:03 Labs/Radiology: Radiology Impressions Chest X-Ray 07/28/22 16:11 IMPRESSION: No acute findings. Laboratory Results WBC 7.4 10^3/uL (4.0-10.0) 07/28/22 17:03 RBC 4.92 10^6/uL (4.1-5.3) 07/28/22 17:03 Hgb 14.0 g/dL (11.7-16.6) 07/28/22 17:03 Hct 43.2 % (42.0-52.0) 07/28/22 17:03 MCV 87.8 fl (80-94) 07/28/22 17:03 MCH 28.5 pg (28.0-34.0) 07/28/22 17:03 MCHC 32.4 g/dL (30.0-36.0) 07/28/22 17:03 RDW 13.4 % (12.1-15.1) 07/28/22 17:03 Plt Count 320 10^3/cmm (130-400) 07/28/22 17:03 MPV 9.1 fL (7.4-10.4) 07/28/22 17:03 Neut % (Auto) 62.6 % 07/28/22 17:03 Lymph % (Auto) 18.0 % 07/28/22 17:03 [place] % (Auto) 8.9 % 07/28/22 17:03 Eos % (Auto) 9.4 % 07/28/22 17:03 Baso % (Auto) 0.8 % 07/28/22 17:03 Neut # (Auto) 4.66 10^3/uL (1.8-7.7) 07/28/22 17:03 Lymph # (Auto) 1.3 10^3/uL (0.8-4.8) 07/28/22 17:03 [place] # (Auto) 0.7 10^3/uL (0.2-0.9) 07/28/22 17:03 Eos # (Auto) 0.7 10^3/uL (0.0-0.8) 07/28/22 17:03 Baso # (Auto) 0.1 10^3/uL (0.0-0.1) 07/28/22 17:03 Nucleated RBC % (auto) 0 % 07/28/22 17:03 Nucleated RBCs # 0.0 /100WBC 07/28/22 17:03 Specimen Type Arterial 07/28/22 21:01 Sample Site Radial, left 07/28/22 21:01 ABG pH 7.41 (7.35-7.45) 07/28/22 21:01 ABG pCO2 45.6 mmHg (35-45) H 07/28/22 21:01 ABG pO2 62.0 mmHg (80.0-100.0) L 07/28/22 21:01 ABG HCO3 29.1 mmol/L (22-26) H 07/28/22 21:01 ABG O2 Saturation 92.6 07/28/22 21:01 ABG Base Excess 3.8 mmol/L (-2.0-2.0) H 07/28/22 21:01 Kapil Test Pos 07/28/22 21:01 A-a O2 Gradient 4.3 mmHg (5-10) L 07/28/22 21:01 Hematocrit 43.1 % (42-52) 07/28/22 21:01 Hgb O2 Saturation 91.1 % (95-100) L 07/28/22 21:01 Carboxyhemoglobin 1.0 %THgb (0.4-20.1) 07/28/22 21:01 Methemoglobin 0.6 % (0.4-1.5) 07/28/22 21:01 Total Hemoglobin 14.1 g/dL (14-18) 07/28/22 21:01 Sodium 143.0 mmol/L (131-143) 07/28/22 21:01 Potassium 3.9 mmol/L (3.5-5.0) 07/28/22 21: Glucose 106.0 mg/dL (70-115) 07/28/22 21:01 Ionized Calcium 1.2 mmol/L (1.1-1.4) 07/28/22 21:01 O2 Delivery Device Nc 07/28/22 21:01 O2 Liters/Min 2.0 % 07/28/22 21:01 Spacecraft Systems Engineer ID [email or web address] 07/28/22 21:01 Sodium 140 mmol/L (136-145) 07/28/22 17:03 Potassium 3.7 mmol/L (3.5-5.1) 07/28/22 17:03 Chloride 103 mmol/L (98-107) 07/28/22 17:03 Carbon Dioxide 27 mmol/L (22-29) 07/28/22 17:03 Anion Gap 13.7 (5-19) 07/28/22 17:03 BUN 20 mg/dL (8-23) 07/28/22 17:03 Creatinine 0.6 mg/dL (0.7-1.2) L 07/28/22 17:03 GFR Calculation 133.6 mL/min (90-130) H 07/28/22 17:03 Glucose 86 mg/dL (65-115) 07/28/22 17:03 Calculated Osmolality 292 mOsm/kg (285-295) 07/28/22 17:03 Calcium 9.3 mg/dL (8.5-10.5) 07/28/22 17:03 Total Bilirubin 0.4 mg/dL (0.15-1.2) 07/28/22 17:03 AST 26 U/L (0-40) 07/28/22 17:03 ALT 15 U/L (0-41) 07/28/22 17:03 Alkaline Phosphatase 100 U/L (40-130) 07/28/22 17:03 Total Protein 7.1 g/dL (6.6-8.7) 07/28/22 17:03 Albumin 3.5 g/dL (3.5-5.2) 07/28/22 17:03 Globulin 3.6 g/dL (1.3-4.6) 07/28/22 17:03 Urine Color Yellow (Yellow) 07/28/22 17:50 Urine Appearance Clear (CLEAR) 07/28/22 17:50 Urine pH 6.5 (5-7) 07/28/22 17:50 Ur Specific [place] 1.015 (1.005-1.030) 07/28/22 17:50 Urine Protein Neg (Negative) 07/28/22 17:50 Urine Glucose (UA) Norm (Normal) 07/28/22 17:50 Urine Ketones Negative (Negative) 07/28/22 17:50 Urine Blood Neg (Negative) 07/28/22 17:50 Urine Nitrate Negative (Negative) 07/28/22 17:50 Urine Bilirubin Neg (Negative) 07/28/22 17:50 Urine Urobilinogen Norm mg/dL (Negative) 07/28/22 17:50 Ur Leukocyte Esterase Negative (Negative) 07/28/22 17:50 Discharge Plan Discharge Patient Disposition: Home Clinical Impression: Acute exacerbation of chronic obstructive airways disease Condition: Stable Prescriptions: New doxycycline hyclate 100 mg capsule 100 mg PO BID 10 Days Qty: 20 0RF prednisone 20 mg tablet 20 mg PO TID Qty: 15 0RF Rx Instructions: 1 p.o. 3 times daily x3 days, 1 p.o. twice daily x2 days, 1 p.o. daily x2 days No Action acetaminophen [Tylenol] 325 mg tablet 650 mg PO QID PRN (Reason: Pain) magnesium hydroxide [Milk of Magnesia] 400 mg/5 mL suspension 5 ml PO DAILY PRN (Reason: Constipation) gabapentin 600 mg tablet 600 mg PO TID fluticasone propionate 50 mcg/actuation spray,suspension 2 spray INTRANASAL DAILY Qty: 9.9 6RF Rx Instructions: administer into each nostril hydrocodone-acetaminophen 5-325 mg tablet 1 tab PO BID PRN (Reason: pain) 30 Days Qty: 60 0RF atorvastatin 80 mg Tablet 80 mg PO DAILY albuterol sulfate 2.5 mg /3 mL (0.083 %) Solution For Nebulization 2.5 mg INHALATION Q6H PRN (Reason: Shortness Of Breath) aspirin 325 mg Tablet 325 mg PO DAILY polyethylene glycol 3350 [Miralax] 17 gram/dose Powder 17 g PO BEDTIME Isosource 1.5 Markus 0.07 gram-1.5 kcal/mL Liquid See Rx Instructions .ROUTE .COMPLEX Rx Instructions: 250 ea via feeding tube 6X DAILY baclofen 10 mg tablet 10 mg PO TID omeprazole 40 mg Capsule,Delayed Release(Dr/Ec) 40 mg PO DAILY venlafaxine 50 mg Tablet 50 mg PO DAILY Keppra 750 mg Tablet 750 mg PO BID Marinol 10 mg Capsule 10 mg PO BID Rx Instructions: administer before lunch and evening meal/dinner Abilify 2 mg Tablet 2 mg PO QPM Discharge Orders: Discharge ED (Routine); Ordered 07/28/22 Ordered By: Philip Tolentino Referrals: Rex Bernardo MD [Primary Care Provider] - Discharge Diet: Usual diet Discharge Activity: Increase activity as tolerated Patient Instructions: Opioid Safety, Pain Management Activity Restrictions/Additional Instructions: Recently seen for complaints of cough and congestion chest x-ray was normal suspect this is from exacerbation of COPD we will put her on a steroid taper and oral antibiotics continue to use the albuterol nebulizers regularly throughout the day to relieve symptoms Coding Level of Care Code ED Solar Hot Water Installer for Marimar Toussaint
--- NOTE | 2022-07-28 16:11 | XRR_ITS ---
PROCEDURE INFORMATION: Exam: XR Chest Exam date and time: 07/28/2022 5:28 PM Age: 67 years old Clinical indication: Shortness of breath; Additional info: Dyspnea/cough TECHNIQUE: Imaging protocol: Radiologic exam of the chest. Views: 1 view. COMPARISON: CR XR chest 1V portable [id number] 02/04/2020 5:41 PM FINDINGS: Lungs: Emphysematous changes of the lungs. No consolidation. Pleural spaces: No pleural effusion. No pneumothorax. Heart/Mediastinum: No cardiomegaly. Bones/joints: Visualized osseous structures are intact. XR/XR chest 1V portable [id number] IMPRESSION: No acute findings.
--- NOTE | 2022-07-28 16:50 | ECG_ITS ---
[facility] Test Date: 2022-07-28 Pat Name: Nakul Nolasco Department: Room: Gender: Male Scale And Skip Car Operator: : 1955 Requested By: Philip Aburto Order Number: [id number] Amos MD: Luis Jay M.D. Measurements Intervals [place] Rate: 70 P: 80 OR: 194 QRS: -14 QRSD: 81 T: 67 QT: 390 QTc: 423 Interpretive Statements SINUS RHYTHM NONSPECIFIC ST & T-WAVE ABNORMALITY Compared to ECG 02/04/2020 19:47:06 T-wave abnormality now present Supraventricular tachycardia no longer present Myocardial infarct finding no longer present Electronically Signed On 07-29-2022 11:01:37 QUALITY CONTROL PROJECTIONIST by Luis Jay M.D. [id number]
[2022-07-28 17:08] LABS: Basophils # 0.1 10^3/uL (0.0-0.1); Basophils % 0.8 %; Eosinophils # 0.7 10^3/uL (0.0-0.8); Eosinophils % 9.4 %; Hematocrit 43.2 % (42.0-52.0); Lymphocytes # 1.3 10^3/uL (0.8-4.8); Mean Corpuscular HGB Conc 32.4 g/dL (30.0-36.0); Mean Corpuscular Hemoglobin 28.5 pg (28.0-34.0); Mean Corpuscular Volume 87.8 fl (80-94); Mean Platelet Volume 9.1 fL (7.4-10.4); Monocytes # 0.7 10^3/uL (0.2-0.9); Monocytes % 8.9 %; Neutrophils # 4.66 10^3/uL (1.8-7.7); Neutrophils % 62.6 %; Nucleated Red Blood Cells % 0 %; Platelet Count 320 10^3/cmm (130-400); Red Blood Count 4.92 10^6/uL (4.1-5.3); Red Cell Distribution Width 13.4 % (12.1-15.1); White Blood Count 7.4 10^3/uL (4.0-10.0)
[2022-07-28 17:28] LABS: Alanine Aminotransferase 15 U/L (0-41); Albumin Level 3.5 g/dL (3.5-5.2); Alkaline Phosphatase 100 U/L (40-130); Aspartate Amino Transferase 26 U/L (0-40); Blood Urea Nitrogen 20 mg/dL (8-23); Calcium 9.3 mg/dL (8.5-10.5); Carbon Dioxide 27 mmol/L (22-29); Chloride 103 mmol/L (98-107); Globulin 3.6 g/dL (1.3-4.6); Glomerular Filtration Rate 133.6 mL/min (90-130); Glucose 86 mg/dL (65-115); Osmolality Calculated 292 mOsm/kg (285-295); Sodium 140 mmol/L (136-145); Total Bilirubin 0.4 mg/dL (0.15-1.2); Total Protein 7.1 g/dL (6.6-8.7)
[2022-07-28 17:31] LABS: Anion Gap 13.7 (5-19); Potassium 3.7 mmol/L (3.5-5.1)
[2022-07-28 17:55] VITALS: BP 137/79; PULSE 78; RESP 18; TEMP 36.8; O2SAT 93
[2022-07-28 18:00] LABS: Add Urine Microscopic? NO; Charge for UA Resulting for Rev
[2022-07-28 18:04] LABS: Bilirubin Urine Neg (Negative); Blood Urine Neg (Negative); Glucose Urine UA Norm (Normal); Ketones Urine Negative (Negative); Leukocyte Esterase Urine Negative (Negative); Nitrate Urine Negative (Negative); Protein Urine Neg (Negative); Specific Gravity, Urine 1.015 (1.005-1.030); Urine Appearance Clear (CLEAR); Urine Color Yellow (Yellow); Urobilinogen Urine Norm (Negative); pH Urine 6.5 (5-7)
[2022-07-28 18:13] VITALS: BP 152/88; PULSE 77; O2SAT 91
[2022-07-28] MEDS: ipratropium-albuterol 3 mL Neb INHALATION (19:37)
[2022-07-28 19:39] VITALS: PULSE 73; RESP 25; O2SAT 96
[2022-07-28 21:13] LABS: ABG PCO2 45.6 mmHg (35-45); ABG PH Result 7.41 (7.35-7.45); Alveolar-Arterial Oxygen Gradi 4.3 mmHg (5-10); Arterial Blood Gas Hematocrit 43.1 % (42-52); Base Excess ABG 3.8 mmol/L (-2.0-2.0); Blood Gas Allen Test Pos; Blood Gas Sample Site Radial, left; Blood Gas Sample Type Arterial; HCO3 ABG 29.1 mmol/L (22-26); HGB O2 Sat 91.1 % (95-100); Ionized Calcium Level - ABG 1.2 mmol/L (1.1-1.4); Methemoglobin 0.6 % (0.4-1.5); Oxygen Device NC; Oxygen Saturation ABG 92.6; Potassium Level - ABG 3.9 mmol/L (3.5-5.0); Total Hemoglobin 14.1 g/dL (14-18)
[2022-07-28 21:27] VITALS: BP 155/86; PULSE 81; RESP 22; O2SAT 94
== END 2022-07-28 23:10 | disposition home or self-care (01) ==
PROVIDERS: Emergency Provider Family Medicine; PCP Internal Medicine
DX: J44.1 Chronic obstructive pulmonary disease with (acute) exacerbation (principal)
CPT/HCPCS: 36600; 71045; 80051; 80053; 81003; 82330; 82805; 85025; 93005; 94640; 96374; 99285; J2930

== ENCOUNTER 2022-08-08 11:26 | Outpatient (CLI) | payer OTHER, MEDICAID, SELFPAY ==
--- NOTE | 2022-08-08 11:35 | FL_ITS ---
WS: [id number] Modified barium swallow, 08/08/2022 Clinical Data: Other dysphagia Comparison: None. Fluoroscopy time: 1min [id number] # of spot films: 1 Findings: The patient had delayed oral propulsion. The food and barium bolus eventually entered the hypopharynx and there was consistent and persistent vallecular pooling. There is penetration and perhaps aspirat ion of the barium on frequent occasions but no coughing resulted. FL/FL barium swallow modifd [id number] Impression: 1. Delayed oral propulsion with persistent vallecular pooling. 2. Numerous episodes of penetration and possible aspiration.
== END 2022-08-08 11:27 | disposition home or self-care (01) ==
LOC: RAD 11:26
PROVIDERS: PCP Internal Medicine; Visit Provider Internal Medicine
DX: R13.19 Other dysphagia (principal)
CPT/HCPCS: 74230; 92611

== ENCOUNTER → 2022-10-05 14:45 | Outpatient (BNVA) | payer MEDICARE, MEDICAID, SELFPAY | PROVIDERS: PCP Internal Medicine; Visit Provider Thoracic Surgery (Cardiothoracic Vascular Surgery) | DX: L89.612 Pressure ulcer of right heel, stage 2 (principal) ==

== ENCOUNTER → 2022-10-10 13:22 | Outpatient (BNVA) | payer MEDICARE, MEDICAID, SELFPAY | PROVIDERS: PCP Internal Medicine; Referring Provider Internal Medicine; Visit Provider Specialist | DX: I69.351 Hemiplegia and hemiparesis following cerebral infarction affecting right dominant side (principal) | CPT/HCPCS: 99204 ==

== ENCOUNTER → 2022-11-09 13:57 | Outpatient (BNVA) | payer MEDICARE, MEDICAID, SELFPAY | PROVIDERS: PCP Internal Medicine; Visit Provider Specialist | DX: I69.351 Hemiplegia and hemiparesis following cerebral infarction affecting right dominant side (principal); I69.320 Aphasia following cerebral infarction | CPT/HCPCS: 99213 ==

== ENCOUNTER → 2023-02-01 12:40 | Outpatient (BNVA) | payer MEDICARE, MEDICAID, SELFPAY | PROVIDERS: PCP Internal Medicine; Visit Provider Specialist | DX: G81.11 Spastic hemiplegia affecting right dominant side (principal) | CPT/HCPCS: 64642; 64643; 64644; J0585 ==

== ENCOUNTER 2023-02-24 06:21 | Inpatient (IN) | payer MEDICARE, MEDICAID, SELFPAY ==
[2023-02-24] VITALS (36 sets, daily range): BP systolic 82–181; BP diastolic 54–122; PULSE 73–108; RESP 14–24; TEMP 36.7; O2SAT 88–100; BMI 21.5
--- NOTE | 2023-02-24 06:30 | ECG_ITS ---
[facility] Test Date: 2023-02-24 Pat Name: Nakul Nolasco Department: Room: Gender: Male Sustainability Communicator: : 1955 Requested By: Philip Aburto Order Number: [id number] Amos MD: Luis Jay M.D. Measurements Intervals [place] Rate: 93 P: 50 MO: 175 QRS: 13 QRSD: 94 T: 75 QT: 326 QTc: 406 Interpretive Statements SINUS RHYTHM WITH OCCASIONAL VENTRICULAR PREMATURE COMPLEXES NONSPECIFIC ST & T-WAVE ABNORMALITY Compared to ECG 07/28/2022 16:50:12 Ventricular premature complex(es) now present T-wave abnormality still present Electronically Signed On 02-24-2023 12:29:41 CDT by Luis Jay M.D. [email or web address]
--- NOTE | 2023-02-24 06:38 | XRR_ITS ---
PROCEDURE INFORMATION: Exam: XR Chest Exam date and time: 02/24/2023 6:35 AM Age: 67 years old Clinical indication: Shortness of breath; Additional info: Dyspnea/cough TECHNIQUE: Imaging protocol: Radiologic exam of the chest. Views: 1 view. Total images: 3 COMPARISON: CR XR chest 1V portable [id number] 07/28/2022 5:28 PM FINDINGS: Lungs: Nonspecific mild left mid lung and lung base opacity favors atelectasis or pneumonia. Nonspecific minimal opacity in the right lung base, favoring atelectasis or pneumonia. Pleural spaces: Unremarkable. No pleural effusion. No pneumothorax. Heart/Mediastinum: Unremarkable. No cardiomegaly. Vasculature: Atherosclerosis is evident. Bones/joints: Osseous structures are unchanged from the prior exam. Diffuse osteopenia noted. Gastrointestinal tract: There is gaseous distention of the stomach noted. XR/XR chest 1V portable [id number] IMPRESSION: 1. Nonspecific mild left mid lung and lung base opacity favors atelectasis or pneumonia. 2. Nonspecific minimal opacity in the right lung base, favoring atelectasis or pneumonia.
--- NOTE | 2023-02-24 06:56 | XRR_ITS ---
PROCEDURE INFORMATION: Exam: XR Chest Exam date and time: 02/24/2023 8:03 AM Age: 67 years old Clinical indication: Device placement; Other: Et and og placement; Additional info: Tube placement TECHNIQUE: Imaging protocol: Radiologic exam of the chest. Views: 1 view. Total images: 2 COMPARISON: CR XR chest 1V portable [id number] 02/24/2023 6:35 AM FINDINGS: Tubes, catheters and devices: Endotracheal tube overlies the trachea with the tip 4.5 cm above the fredy in satisfactory position. Enteric tube is seen with the tip in the body of the stomach. A gastric feeding tube projects in satisfactory location. Lungs: Mild interstitial opacities in the left mid lung and lung base may represent pneumonia and or atelectasis. Right lung base partially clipped from radiograph. Pleural spaces: Unremarkable. No pleural effusion. No pneumothorax. Heart/Mediastinum: Unremarkable. No cardiomegaly. Bones/joints: Unremarkable. XR/XR chest 1V portable [id number] IMPRESSION: 1. Enteric tube is seen with the tip in the body of the stomach. 2. Mild interstitial opacities in the left mid lung and lung base may represent pneumonia and or atelectasis.
[2023-02-24 07:09] LABS: Basophils % 0.3 %; Eosinophils % 0.1 %; Hematocrit 41.7 % (42.0-52.0); Mean Corpuscular HGB Conc 33.6 g/dL (30.0-36.0); Mean Corpuscular Hemoglobin 31.7 pg (28.0-34.0); Mean Corpuscular Volume 94.6 fl (80-94); Mean Platelet Volume 10.1 fL (7.4-10.4); Monocytes # 0.8 10^3/uL (0.2-0.9); Monocytes % 5.6 %; Neutrophils # 12.16 10^3/uL (1.8-7.7); Neutrophils % 80.7 %; Nucleated Red Blood Cells % 0 %; Platelet Count 382 10^3/cmm (130-400); Red Blood Count 4.41 10^6/uL (4.1-5.3); Red Cell Distribution Width 14.6 % (12.1-15.1); White Blood Count 15.1 10^3/uL (4.0-10.0)
[2023-02-24 07:20] LABS: Troponin(5th) Baseline 51 ng/L (0-15)
[2023-02-24 07:21] LABS: Alanine Aminotransferase 19 U/L (0-41); Alkaline Phosphatase 101 U/L (40-130); Anion Gap 17.2 (5-19); Aspartate Amino Transferase 33 U/L (0-40); Blood Urea Nitrogen 26 mg/dL (8-23); Calcium 9.3 mg/dL (8.5-10.5); Carbon Dioxide 34 mmol/L (22-29); Chloride 98 mmol/L (98-107); Globulin 3.3 g/dL (1.3-4.6); Glomerular Filtration Rate 83.7 mL/min (90-130); Glucose 189 mg/dL (65-115); Lipase 16 U/L (13-60); Osmolality Calculated 312 mOsm/kg (285-295); Potassium 3.2 mmol/L (3.5-5.1); Sodium 146 mmol/L (136-145); Total Bilirubin 0.5 mg/dL (0.15-1.2); Total Protein 7.3 g/dL (6.6-8.7)
[2023-02-24 07:22] LABS: Lactic Sepsis W/Reflex 3.4 mmol/L (0.5-2.2)
--- NOTE | 2023-02-24 07:23 | ED_ITS ---
HPI - SOB/Dyspnea General: Chief Complaint: Shortness of Breath/Dyspnea Stated Complaint: RESP. DISTRESS Time Seen by Provider: 02/24/23 06:24 Source: EMS Mode of arrival: EMS History of Present Illness: HPI Narrative: 14-year-old male presents emergency room via EMS with a LMA in place. Patient was in respiratory distress on arrival has a history of COPD previous CVA with right-sided contractures. He is a Do Not Recussitate. He was given rocuronium and ketamine and an i-gel was placed he is being ventilated on arrival here. Shortly after arrival I contacted the power of middle school counselor daughter. She ultimately decided to continue treatment because it had been initiated. Patient was then intubated with an ET tube there was significant mount of gastric contents in the hypopharynx which were suctioned after the ET tube was placed there is reflux of gastric contents through the ET tube. Suspect patient aspirated with the i-gel in place. No other history at this time patient has received ketamine and rocuronium and is still nonresponsive makes no respiratory efforts. MD elicited complaint: shortness of breath Pertinent past history: COPD, pneumonia, aspiration and other (Previous CVA with right-sided hemiparesis and contractures) Exacerbating factors: nothing Relieving factors: nothing Known history of: COPD and other (Previous CVA) Treatment prior to arrival: oxygen and intubation (Igel in place after RSI in field) Review of Systems General: Reports: ROS unobtainable due to medical condition [facility] ED PFSH: Medical History Acute respiratory failure with hypoxia and hypercapnia Alcohol abuse, uncomplicated Analgesic rebound headache Arrhythmia, atrial Bradycardia, unspecified Cerebral infarction, unspecified COPD (chronic obstructive pulmonary disease) Dorsalgia, unspecified Dysphagia Essential (primary) hypertension Expressive aphasia GERD (gastroesophageal reflux disease) Hemiplegia and hemiparesis following cerebral infarction affecting unspecified side Hemiplegia, unspecified affecting unspecified side Hypotension, unspecified Major depressive disorder, single episode, unspecified Other malaise Other muscle spasm Pure hypercholesterolemia, unspecified Sepsis Spasticity Unspecified sequelae of cerebral infarction Surgical History PEG (percutaneous endoscopic gastrostomy) status Family History Other Hypertension Social History Smoking and tobacco status: unknown if ever smoked Alcohol intake: former Substance/Drug Use: never Housing: Group Home Physical Exam HENMT: COMMON NORMALS: normocephalic, atraumatic and hearing grossly normal bilaterally HEAD & SCALP: normocephalic and atraumatic Resp: AUSCULTATION: rhonchi and wheezes Cardio: COMMON NORMALS: regular rhythm and No murmurs present (Cardio) RHYTHM: regular rhythm GI: COMMON NORMALS: Soft to palpation and No hepatosplenomegaly present AUSCULTATION: Yes normoactive bowel sounds PALPATION: Yes Soft to palpation, No Tenderness to palpation present (GI), No Guarding due to palpation present (GI) and Yes No hepatosplenomegaly present Extremity: COMMON NORMALS: normal to inspection, capillary refill normal, no clubbing, cyanosis or edema, no calf tenderness and no pedal edema Skin: COMMON NORMALS: no rashes or lesions noted GENERAL SKIN EXAM: no rashes or lesions noted Procedures Intubation Time out performed: Yes sedative: none Laryngoscope: Raina ET Tube Size: 8 ET Tube Uncuffed: No Tube Secured Depth (cm): 24 Tube Secured Location: teeth Tube Placement Confirmation: visualized tube passing through cords, equal breath sounds bilaterally, no breath sounds over epigastrium and confirmation by capnometry Patient Tolerated Procedure: well Intubation Complications: none Additional Comments: I-gel removed. Significant amount of gastric fluid in the hypopharynx was suctioned. ET tube placed without difficulty immediately after placement of ET tube noted gastric contents refluxing and the ET tube was suctioned by RT. Course Vital Signs: Vital signs: Vital Signs Temperature 99.5 F 02/25/23 07:00 Pulse Rate 104 H 02/25/23 07:00 Respiratory Rate 16 02/25/23 07:00 Blood Pressure 107/64 02/25/23 07:00 Pulse Oximetry 97 02/25/23 07:00 Oxygen Delivery Me thod Mechanical Ventil ation 02/25/23 07:00 Fraction of Inspir ed Oxygen 45 02/25/23 07:00 MDM - SOB/Dyspnea Medical Decision Making Patient has an Igel in place on arrival he is Do Not Recussitate. He was RSI in the field and the i-gel placed by EMS crew. Family was contacted now that he is intubated they are hesitant to withdraw. They are in route and they wish as to with rescind the DNI order now and treat as a full code. Igel replaced with an ET tube and OG tube placed. Initial film noticed significant amount of distention of the stomach also noted that the PEG tube and the patient is in quite aggressive suspect the bulb the tube may be obstructing the duodenum bulb was deflated and retracted and then reinflated. CT chest and abdomen did not show any significant pathology he does have what appears to be early signs of aspiration pneumonia based on the findings at the time of placement of the ET tube suspect he has aspirated significant amounts. Long discussion of the family about CODE STATUS. They state the patient had previously expressed desire to be a no code daughter is hesitant to reverse now that he is intubated. Today however the 70s GI in the past. At this time will admit to the ICU start on antibiotics discussed with hospitalist orders written. Full sepsis bolus not given initially because of patient's blood pressure is adequate significant concerns about fluid overloading the patient. Medical Records I reviewed the patient's medical records. Lab Data I reviewed the patient's lab results. 02/25/23 02:05 02/25/23 02:05 Labs/Radiology: Radiology Impressions Abdomen/Pelvis CT 02/24/23 08:42 IMPRESSION: 1. No acute abnormality in the abdomen and pelvis. 2. Lung infiltrates. Head CT 02/24/23 08:42 IMPRESSION: No acute intracranial pathology detected. Chest X-Ray 02/24/23 21:15 IMPRESSION: 1. Left-sided PICC line tip projects over the superior vena cava. 2. There are patchy left perihilar opacities. Laboratory Results WBC 15.1 10^3/uL (4.0-10.0) H 02/24/23 06:37 RBC 4.41 10^6/uL (4.1-5.3) 02/24/23 06:37 Hgb 14.0 g/dL (11.7-16.6) 02/24/23 06:37 Hct 41.7 % (42.0-52.0) L 02/24/23 06:37 MCV 94.6 fl (80-94) H 02/24/23 06:37 MCH 31.7 pg (28.0-34.0) 02/24/23 06:37 MCHC 33.6 g/dL (30.0-36.0) 02/24/23 06:37 RDW 14.6 % (12.1-15.1) 02/24/23 06:37 Plt Count 382 10^3/cmm (130-400) 02/24/23 06:37 MPV 10.1 fL (7.4-10.4) 02/24/23 06:37 Neut % (Auto) 80.7 % 02/24/23 06:37 Lymph % (Auto) 13.0 % 02/24/23 06:37 [place] % (Auto) 5.6 % 02/24/23 06:37 Eos % (Auto) 0.1 % 02/24/23 06:37 Baso % (Auto) 0.3 % 02/24/23 06:37 Neut # (Auto) 12.16 10^3/uL (1.8-7.7) H 02/24/23 06:37 Lymph # (Auto) 2.0 10^3/uL (0.8-4.8) 02/24/23 06:37 [place] # (Auto) 0.8 10^3/uL (0.2-0.9) 02/24/23 06:37 Eos # (Auto) 0.0 10^3/uL (0.0-0.8) 02/24/23 06:37 Baso # (Auto) 0.0 10^3/uL (0.0-0.1) 02/24/23 06:37 Nucleated RBC % (auto) 0 % 02/24/23 06:37 Nucleated RBCs # 0.0 /100WBC 02/24/23 06:37 D-Dimer 1.28 ug/mIFEU (0-0.59) H 02/24/23 06:37 Specimen Type Arterial 02/24/23 07:57 Sample Site Femoral, right 02/24/23 07:57 ABG pH 7.29 (7.35-7.45) L 02/24/23 07:57 ABG pCO2 64.7 mmHg (35-45) H* 02/24/23 07:57 ABG pO2 324.0 mmHg (80.0-100.0) H 02/24/23 07:57 ABG HCO3 31.4 mmol/L (22-26) H 02/24/23 07:57 ABG O2 Saturation > 100.0 02/24/23 07:57 ABG Base Excess 2.7 mmol/L (-2.0-2.0) H 02/24/23 07:57 Kapil Test N/a 02/24/23 07:57 A-a O2 Gradient 39.9 mmHg (5-10) H 02/24/23 07:57 Hematocrit 46.6 % (42-52) 02/24/23 07:57 Hgb O2 Saturation 99.3 % (95-100) 02/24/23 07:57 Carboxyhemoglobin 0.6 %THgb (0.4-20.1) 02/24/23 07:57 Methemoglobin 0.2 % (0.4-1.5) L 02/24/23 07:57 Total Hemoglobin 15.2 g/dL (14-18) 02/24/23 07:57 Sodium 147.0 mmol/L (131-143) H 02/24/23 07:57 Potassium 2.7 mmol/L (3.5-5.0) L 02/24/23 07:57 Glucose 214.0 mg/dL (70-115) H 02/24/23 07:57 Ionized Calcium 1.2 mmol/L (1.1-1.4) 02/24/23 07:57 O2 Delivery Device Vent 02/24/23 07:57 FiO2 100.0 % 02/24/23 07:57 Tidal Volume 0.40 02/24/23 07:57 PEEP 8.0 cmH20 02/24/23 07:57 Director Digital Advertising ID [id number] 02/24/23 07:57 Sodium 146 mmol/L (136-145) H 02/24/23 06:37 Potassium 3.2 mmol/L (3.5-5.1) L 02/24/23 06:37 Chloride 98 mmol/L (98-107) 02/24/23 06:37 Carbon Dioxide 34 mmol/L (22-29) H 02/24/23 06:37 Anion Gap 17.2 (5-19) 02/24/23 06:37 BUN 26 mg/dL (8-23) H 02/24/23 06:37 Creatinine 0.9 mg/dL (0.7-1.2) 02/24/23 06:37 GFR Calculation 83.7 mL/min (90-130) L 02/24/23 06:37 Glucose 189 mg/dL (65-115) H 02/24/23 06:37 Calculated Osmolality 312 mOsm/kg (285-295) H 02/24/23 06:37 Lactic Acid 3.4 mmol/L (0.5-2.2) H 02/24/23 06:37 Lactic Acid (Sepsis) 4.1 mmol/L (0.5-2.2) H* 02/24/23 08:50 Calcium 9.3 mg/dL (8.5-10.5) 02/24/23 06:37 Total Bilirubin 0.5 mg/dL (0.15-1.2) 02/24/23 06:37 AST 33 U/L (0-40) 02/24/23 06:37 ALT 19 U/L (0-41) 02/24/23 06:37 Alkaline Phosphatase 101 U/L (40-130) 02/24/23 06:37 Troponin T Baseline 51 ng/L (0-15) H 02/24/23 06:37 Troponin T 120 Minute 53.65 ng/L (0-15) H 02/24/23 08:50 Delta Troponin T 2.65 ABS# (0-10) 02/24/23 08:50 Total Protein 7.3 g/dL (6.6-8.7) 02/24/23 06:37 Albumin 4.0 g/dL (3.5-5.2) 02/24/23 06:37 Globulin 3.3 g/dL (1.3-4.6) 02/24/23 06:37 Lipase 16 U/L (13-60) 02/24/23 06:37 Urine Color Yellow (Yellow) 02/24/23 09:14 Urine Appearance Clear (CLEAR) 02/24/23 09:14 Urine pH 5 (5-7) 02/24/23 09:14 Ur Specific [place] 1.030 (1.005-1.030) 02/24/23 09:14 Urine Protein 2+ (Negative) H 02/24/23 09:14 Urine Glucose (UA) Norm (Normal) 02/24/23 09:14 Urine Ketones 1+ (Negative) H 02/24/23 09:14 Urine Blood Trace (Negative) H 02/24/23 09:14 Urine Nitrate Negative (Negative) 02/24/23 09:14 Urine Bilirubin Neg (Negative) 02/24/23 09:14 Urine Urobilinogen 1 mg/dL (Negative) H 02/24/23 09:14 Ur Leukocyte Esterase Negative (Negative) 02/24/23 09:14 Urine RBC 0-4 /hpf (0-2) H 02/24/23 09:14 Urine WBC Rare /hpf (0-5) 02/24/23 09:14 Ur Squamous Epith Cells 0-4 /hpf (0-5) H 02/24/23 09:14 Amorphous Sediment Not Reportable 02/24/23 09:14 Urine Bacteria 1+ /hpf (NONE) H 02/24/23 09:14 Hyaline Casts 5-10 /lpf H 02/24/23 09:14 Urine Mucus 1+ /hpf 02/24/23 09:14 Critical Care Time Critical Care Time: Critical Care Time: Yes Total Critical Care Time: 60 Attestation: The high probability of a clinically significant, sudden or life threatening deterioration of the patient's cardiovascular respiratory renal system(s) required my full and direct attention, intervention and personal management. The critical care time is as shown. This time is in addition to time spent performing any reported procedures but includes the following: [x] Data and vital sign review and interpretation [x] Patient assessment, examination and intervention [x] Documentation [x] Medication orders and management Discharge Plan Discharge Patient Disposition: Admitted As Inpatient Admit Provider: Richard Caraballo Clinical Impression: Acute hypercapnic respiratory failure, Aspiration pneumonia, Cerebral infarction, unspecified, Hypernatremia, Hypokalemia, Lactic acidemia, Septic shock Condition: Stable Coding Level of Care Code ED Him Director for Marimar Toussaint
[2023-02-24] MEDS: dexamethasone 10 mg/mL INJ IVP (07:59)
[2023-02-24] MEDS: cefTRIAXone 1,000 MG in sodium chloride 0.9% (plus) 50 ML 100 MG IV (08:00)
[2023-02-24 08:05] LABS: Reflex Lactate Order REFLEX LACTIC ORDERD
[2023-02-24 08:11] LABS: ABG PCO2 64.7 mmHg (35-45); ABG PH Result 7.29 (7.35-7.45); Alveolar-Arterial Oxygen Gradi 39.9 mmHg (5-10); Arterial Blood Gas Hematocrit 46.6 % (42-52); Base Excess ABG 2.7 mmol/L (-2.0-2.0); Blood Gas Operator Identificat AMH; Blood Gas Sample Site Femoral, right; Blood Gas Sample Type Arterial; Carboxyhemoglobin 0.6 %THgb (0.4-20.1); HCO3 ABG 31.4 mmol/L (22-26); HGB O2 Sat 99.3 % (95-100); Ionized Calcium Level - ABG 1.2 mmol/L (1.1-1.4); Methemoglobin 0.2 % (0.4-1.5); Oxygen Device VENT; Oxygen Saturation ABG > 100.0; Potassium Level - ABG 2.7 mmol/L (3.5-5.0); Total Hemoglobin 15.2 g/dL (14-18)
[2023-02-24] MEDS: ipratropium-albuterol 3 mL Neb INHALATION ×3 (08:14→20:14)
--- NOTE | 2023-02-24 08:34 | ECG_ITS ---
[facility] Test Date: 2023-02-24 Pat Name: Nakul Nolasco Department: Room: Gender: Male [employer] Pro[employer]: : [id number] Requested By: Philip Aburto Order Number: [id number] Amos MD: Luis Jay M.D. Measurements Intervals [place] Rate: 78 P: 75 IN: 184 QRS: 66 QRSD: 84 T: 73 QT: 373 QTc: 425 Interpretive Statements SINUS RHYTHM WITH OCCASIONAL SUPRAVENTRICULAR PREMATURE COMPLEXES ST DEVIATION AND MODERATE T-WAVE ABNORMALITY, CONSIDER INFERIOR ISCHEMIA [-0.1+ mV T-WAVE IN II/aVF] Compared to ECG 07/28/2022 16:50:12 Possible ischemia now present T-wave abnormality still present Electronically Signed On 02-24-2023 8:36:19 CDT by Luis Jay M.D. [email or web address]
--- NOTE | 2023-02-24 08:42 | CTR_ITS ---
PROCEDURE INFORMATION: Exam: CT Abdomen And Pelvis With Contrast Exam date and time: 02/24/2023 9:44 AM Age: 67 years old Clinical indication: Abdominal pain; Patient HX: HX cva/unrepsonsive post resp arrest; Additional info: Abd pain TECHNIQUE: Imaging protocol: Computed tomography of the abdomen and pelvis with contrast. Radiation optimization: All CT scans at this facility use at least one of these dose optimization techniques: automated exposure control; mA and/or kV adjustment per patient size (includes targeted exams where dose is matched to clinical indication); or iterative reconstruction. Contrast material: OMNI 350; Contrast volume: 100 ml; Contrast route: INTRAVENOUS (IV); REPORTING DATA: Count of CT and Cardiac NM exams in prior 12 months: This patient has received 0 known CTs and 0 known cardiac nuclear medicine studies in the 12 months prior to the current study. COMPARISON: CT abdomen pelvis w con* [id number] 02/04/2020 7:50 PM RADIATION DOSE METRICS: Total DLP (mGy-cm): 512.92 FINDINGS: Tubes, catheters and devices: There is a feeding tube now with its tip in the stomach. There is a gastrostomy tube in the stomach. Lungs: The in infiltrate is slightly improved on the right but still infiltrate is remaining which could be chronic. Left-sided infiltrate appears slightly worse. Liver: Moderately fatty nonenlarged liver. Gallbladder and bile ducts: Normal. No calcified stones. No ductal dilation. Pancreas: Normal. No ductal dilation. Spleen: Normal. No splenomegaly. Adrenal glands: Normal. No mass. Kidneys and ureters: Normal. No hydronephrosis. Stomach and bowel: Diverticulosis of the colon. Rodas catheter with a droplet of air in the stomach. Appendix: Normal right lower quadrant appendix. Intraperitoneal space: Unremarkable. No free air. No significant fluid collection. Vasculature: Unremarkable. No abdominal aortic aneurysm. Lymph nodes: Unremarkable. No enlarged lymph nodes. Urinary bladder: Unremarkable as visualized. Reproductive: Unremarkable as visualized. Bones/joints: Stable spinal arthritis. Soft tissues: Unremarkable. CT/CT abdomen pelvis w con* [id number] IMPRESSION: 1. No acute abnormality in the abdomen and pelvis. 2. Lung infiltrates.
--- NOTE | 2023-02-24 08:42 | CTR_ITS ---
PROCEDURE INFORMATION: Exam: CT Head Without Contrast Exam date and time: 02/24/2023 9:40 AM Age: 67 years old Clinical indication: Other: HX cva/unrepsonsive post resp arrest TECHNIQUE: Imaging protocol: Computed tomography of the head without contrast. Total images: 394 Radiation optimization: All CT scans at this facility use at least one of these dose optimization techniques: automated exposure control; mA and/or kV adjustment per patient size (includes targeted exams where dose is matched to clinical indication); or iterative reconstruction. REPORTING DATA: Count of CT and Cardiac NM exams in prior 12 months: This patient has received 0 known CTs and 0 known cardiac nuclear medicine studies in the 12 months prior to the current study. COMPARISON: CT head wo con* [id number] 02/04/2020 11:47 PM RADIATION DOSE METRICS: Total DLP (mGy-cm): 1143.18 FINDINGS: Brain: Global brain atrophy and chronic white matter ischemic changes are present. Multifocal encephalomalacia. Chronic lacunar infarction in the left basal ganglia. Remote lacunar infarct of the right thalamus noted. Cerebral ventricles: Ventricles are appropriate in size for degree of atrophy. Paranasal sinuses: Small air-fluid levels present within the maxillary and sphenoid sinuses and left middle ethmoid sinus. Mastoid air cells: Visualized mastoid air cells are well aerated. Bones/joints: Unremarkable. No acute fracture. Soft tissues: Unremarkable. Vasculature: Encephalomalacia in distribution of left KG. CT/CT head wo con* [id number] IMPRESSION: No acute intracranial pathology detected.
--- NOTE | 2023-02-24 08:42 | PC.NURSE ---
PT INTUBATED WITH SIZE 8ET TUBE. AT 0650. POSITIVE COLOR CHANGE 0651
[2023-02-24] MEDS: metroNIDAZOLE IV 500 MG/100 ML PREMIX 100 MG IV ×2 (08:46→16:05)
[2023-02-24 09:26] LABS: Troponin 5 2HR 53.65 ng/L (0-15)
[2023-02-24 09:27] LABS: Troponin 5 2HR Delta 2.65 ABS# (0-10)
[2023-02-24 09:39] LABS: Lactic Acid level (Lactate) 4.1 mmol/L (0.5-2.2)
[2023-02-24 09:42] LABS: Bilirubin Urine Neg (Negative); Blood Urine Trace (Negative); Glucose Urine UA Norm (Normal); Ketones Urine 1+ (Negative); Nitrate Urine Negative (Negative); Protein Urine 2+ (Negative); Urine Appearance Clear (CLEAR); Urine Color Yellow (Yellow); pH Urine 5 (5-7)
[2023-02-24 09:43] LABS: Add Urine Microscopic? YES; Leukocyte Esterase Urine Negative (Negative); Urobilinogen Urine 1 mg/dL (Negative)
[2023-02-24 09:45] LABS: Bacteria Urine 1+ /hpf; Mucus Urine 1+ /hpf; RBC Urine 0-4 /hpf (0-2); Squamous Epithelial Cell Urine 0-4 /hpf (0-5); WBC Urine RARE /hpf (0-5)
[2023-02-24 09:47] LABS: Add Urine Culture? No
[2023-02-24] MEDS: iohexol 350 mg/mL 500 mL Btl (per mL) IV (09:54)
[2023-02-24] MEDS: sodium chloride 0.9% 1,000 ML 999 ML IV ×2 (10:11→11:36)
[2023-02-24] MEDS: potassium chloride premix 100 ML 25 MEQ IV (10:11)
--- NOTE | 2023-02-24 10:41 | PC.NURSE ---
PT STARTING TO MOVE SLIGHTLY IN BED. BP INCREASING. ED PHYSICIAN NOTIFIED. ED PHYSICIAN GAVE VERBAL ORDER FOR TITRATABLE PROPOFOL DRIP
[2023-02-24] MEDS: propofol 1,000 MG/100 ML INJ 2.04 MG IV ×2 (10:49→10:51)
--- NOTE | 2023-02-24 12:21 | PM.HP ---
Providers/Chief Complaint Admitting Physician: Richard Caraballo MD Primary Care Provider: Rex Bernardo MD Chief Complaint: RESP. DISTRESS History of Present Illness Nakul Nolasco is a 67 year old male history of CVA, dysphagia status post PEG tube placement, was previously DNR/DNI was brought in from the intermediate [place], with chief complaint of altered mental status, EMS intubated him in the field on arrival his lactic acid was high he met the sepsis criteria, endotracheal tube was placed 1 ER physician verified CODE STATUS as per the daughter they would like to keep patient full code there is PEG tube in place, there was concern for gastric outlet obstruction considering a lot of air balloon was deflated pulled back and then reinflated, but 1 L content obtained, NG tube was placed patient was put on Zosyn he was given 2 L of fluid in the ER judicious use of fluids because of volume overloaded chest x-ray findings, he was given rocuronium, propofol along ceftriaxone, metronidazole and Decadron. As per the daughter she allowed intubation because she was afraid that she would not see her father, she is wanting us to continue medical treatment for now patient will stay DNR/DNI now onwards she will further decision depending on progress on Sunday Review of Systems General: Reports: ROS unobtainable due to endotracheal tube and ROS unobtainable due to medical condition Medications/Allergies Home Medications Medication Instructions Recorded Confirmed Last Taken Type acetaminophen 325 mg tablet 650 mg PO QID PRN Pain 12/17/19 02/24/23 11/06/21 History (Tylenol) gabapentin 600 mg tablet 600 mg PO TID 12/17/19 02/24/23 07/28/22 History magnesium hydroxide 400 mg/5 mL 5 ml PO DAILY PRN Constipation 12/17/19 02/24/23 11/06/21 History oral suspension (Milk of Magnesia) fluticasone propionate 50 2 spray intranasal DAILY #9.9 mL 01/13/20 02/24/23 11/06/21 Rx mcg/actuation nasal spray,suspension albuterol sulfate 2.5 mg/3 mL 2.5 mg inhalation Q6H PRN 02/04/20 02/24/23 11/06/21 History (0.083 %) solution for nebulization Shortness Of Breath aspirin 325 mg tablet 325 mg PO DAILY 0602/24/23 07/28/22 History atorvastatin 80 mg tablet 80 mg PO QPM 02/04/20 02/24/23 07/28/22 History baclofen 10 mg tablet 10 mg PO TID 02/04/20 02/24/23 07/28/22 History lactose-reduced food-fiber 0.07 See Rx Instructions .Route .COMPLEX 02/04/20 02/24/23 11/06/21 History gram-1.5 kcal/mL liquid for tube feed (Isosource 1.5 Markus) polyethylene glycol 3350 17 17 g PO BEDTIME 02/04/20 02/24/23 07/27/22 History gram/dose oral powder (Miralax) hydrocodone 5 mg-acetaminophen 325 1 tab PO BID PRN pain 1 month #60 05/20/22 02/24/23 Unknown Rx mg tablet tabs aripiprazole 2 mg tablet (Abilify) 2 mg PO QPM 07/28/22 02/24/23 07/27/22 History levetiracetam 750 mg tablet 750 mg PO BID 07/28/22 02/24/23 07/28/22 History (Keppra) omeprazole 40 mg capsule,delayed 40 mg PO DAILY 07/28/22 02/24/23 07/28/22 History release ondansetron HCl 4 mg tablet 4 mg PO Q6H PRN Nausea And Vomiting 02/24/23 02/24/23 Unknown History venlafaxine 150 mg 150 mg PO DAILY 02/24/23 02/24/23 Unknown History capsule,extended release 24 hr Allergies Allergy/AdvReac Type Severity Reaction Status Date / Time Penicillins Allergy Unknown Verified 02/24/23 09:02 PFSH Acute PFSH: Medical History Acute respiratory failure with hypoxia and hypercapnia Alcohol abuse, uncomplicated Analgesic rebound headache Arrhythmia, atrial Bradycardia, unspecified Cerebral infarction, unspecified COPD (chronic obstructive pulmonary disease) Dorsalgia, unspecified Dysphagia Essential (primary) hypertension Expressive aphasia GERD (gastroesophageal reflux disease) Hemiplegia and hemiparesis following cerebral infarction affecting unspecified side Hemiplegia, unspecified affecting unspecified side Hypotension, unspecified Major depressive disorder, single episode, unspecified Other malaise Other muscle spasm Pure hypercholesterolemia, unspecified Sepsis Spasticity Unspecified sequelae of cerebral infarction Surgical History PEG (percutaneous endoscopic gastrostomy) status Family History Other Hypertension Social History Smoking and tobacco status: unknown if ever smoked Alcohol intake: former Substance/Drug Use: never Housing: [facility] Vitals/I&O/Wt Last Vital Signs Pulse 86 02/24/23 12:05 Resp 22 H 02/24/23 11:40 BP 131/79 02/24/23 12:05 Pulse Ox 99 02/24/23 12:05 O2 Del Method Mechanical Ventilation 02/24/23 08:17 FiO2 35 02/24/23 10:38 02/23/23 02/24/23 02/24/23 22:59 06:59 14:59 Intake Total 1160.923 / 1160.923 Balance 1160.923 / 1160.923 Weight last 48 hrs Weight 68.039 kg Physical Exam Narrative: Septic exam Cap refill normal Patient received adequate bolus Positive skin mottling Patient is intubated Septic induced encephalopathy Intubated and sedated PEG tube in place Patient is malnourished PEG tube in place Abdomen with bowel sounds Bilateral breath sounds with crackles Rodas catheter draining dilute urine Skin mottling around knees Currently patient is on Levophed and propofol intubated and sedated Urinary Catheter Management: Rodas: Cath Placed During This Visit: yes Urinary Catheter Date of Insertion: 02/24/23 Urinary Catheter Time of Insertion: 12:06 Data 02/24/23 06:37 02/24/23 06:37 Micro: Microbiology 02/24/23 07:35 Blood Culture - Preliminary Blood SPECIMEN COLLECTED 02/24/23 07:23 Blood Culture - Preliminary Blood SPECIMEN COLLECTED A&P Assessment and plan (1) Spastic hemiparesis affecting dominant side: (2) Altered mental status: Qualifiers: Altered mental status type: unspecified Qualified Code(s): R41.82 - Altered mental status, unspecified (3) Acute hypercapnic respiratory failure: (4) Aspiration pneumonia: Qualifiers: Aspiration pneumonia type: unspecified Laterality: right Lung location: lower lobe of lung Qualified Code(s): J69.0 - Pneumonitis due to inhalation of food and vomit (5) Cerebral infarction, unspecified: Qualifiers: Cerebral infarction mechanism: embolism Precerebral and cerebral artery: unspecified cerebral artery Qualified Code(s): I63.40 - Cerebral infarction due to embolism of unspecified cerebral artery (6) Expressive aphasia: (7) Essential (primary) hypertension: (8) GERD (gastroesophageal reflux disease): (9) COPD (chronic obstructive pulmonary disease): (10) Septic shock: (11) Hypernatremia: (12) Hypokalemia: (13) Alkalosis: (14) Lactic acidemia: Plan Septic shock Patient received septic bolus in the ER Received antibiotics Requested blood sputum and urine culture Patient received septic bolus in the ER Requested repeat lactic acid Sepsis criteria met with tachypnea tachycardia low blood pressure, leukocytosis, high lactic acid, sepsis induced encephalopathy endorgan damage I will keep patient on vancomycin, cefepime and metronidazole, source most likely is aspiration pneumonia Aspiration pneumonia Patient has expressive aphasia Gets feeds through PEG tube Concern for gastric outlet obstruction PEG tube balloon was deflated, PEG tube was retracted and then balloon was inflated Patient will be considered high risk for aspiration because of PEG tube positioning Sepsis induced encephalopathy Patient was intubated because of severe altered mental status, unresponsiveness Patient was intubated by the EMS with i-gel, endotracheal tube was placed by the ER physician Respiratory failure requiring mechanical ventilation, acute on chronic hypoxic hypercapnic respiratory failure Currently intubated and sedated On mechanical ventilator, hypercapnia noted, repeat ABG Family wants to keep him full code for now however he was DNR/DNI in the past Daughter is the medical DPOA D-dimer came back high 1.2, creatinine is normal I will start patient on therapeutic Lovenox and request CTA chest once he is stable, troponins trending down Hypokalemia: Repleted Hypernatremia: Patient looks cachectic, malnourished Sodium 146 with contraction alkalosis We will start him on gentle fluid hydration with D5 half-normal saline Currently patient is on Levophed we will try to wean him off and start PEG tube feeds by tomorrow if possible Interpretation of EKG: Sinus rhythm with a U wave Chest x-ray showing mild vascular congestion Patient has 2 peripheral IVs, Rodas catheter, requested PICC line Attestations Medical Necessity Statement*: More than 2 midnights anticipated for management of septic shock Diagnoses Spastic hemiparesis affecting dominant side G81.10 Altered mental status R41.82 Altered mental status type: unspecified Acute hypercapnic respiratory failure J96.02 Aspiration pneumonia J69.0 Aspiration pneumonia type: unspecified Laterality: right Lung location: lower lobe of lung Cerebral infarction, unspecified I63.40 Cerebral infarction mechanism: embolism Precerebral and cerebral artery: unspecified cerebral artery Expressive aphasia R47.01 Essential (primary) hypertension I10 GERD (gastroesophageal reflux disease) K21.9 COPD (chronic obstructive pulmonary disease) J44.9 Septic shock A41.9; R65.21 Hypernatremia E87.0 Hypokalemia E87.6 Alkalosis E87.3 Lactic acidemia E87.20
--- NOTE | 2023-02-24 12:39 | ECG_ITS ---
[facility] Test Date: 2023-02-24 Pat Name: Nakul Nolasco Department: Room: [facility] Gender: Male [employer]ios[employer] Specialist: : 1955 Requested By: Philip Aburto Order Number: [id number] Amos MD: Luis Jay M.D. Measurements Intervals Tillman Rate: 90 P: 80 WI: 167 QRS: 66 QRSD: 77 T: 126 QT: 341 QTc: 418 Interpretive Statements SINUS RHYTHM ST DEVIATION AND MODERATE T-WAVE ABNORMALITY, CONSIDER LATERAL ISCHEMIA [-0.1+ mV T-WAVE IN I/aVL/V5/V6] ST DEVIATION AND MODERATE T-WAVE ABNORMALITY, CONSIDER INFERIOR ISCHEMIA [-0.1+ mV T-WAVE IN II/aVF] Compared to ECG 02/24/2023 08:34:18 No significant changes Electronically Signed On 02-24-2023 14:12:31 CDT by Luis Jay M.D. [id number]
--- NOTE | 2023-02-24 12:57 | PC.PHAR ---
[id number] VANCOMYCIN: dosing calculated at 1000mg q 18 hours predicted trough ~10 but due to patient ht/wt/age should come back slightly higher. trough before 4th dose 02/26 @ 1999
[2023-02-24 13:10] LABS: ABG PCO2 56.1 mmHg (35-45); ABG PH Result 7.28 (7.35-7.45); Arterial Blood Gas Hematocrit 43.1 % (42-52); Base Excess ABG -1.2 mmol/L (-2.0-2.0); Blood Gas Allen Test Pos; Blood Gas Sample Type Arterial; HCO3 ABG 26.6 mmol/L (22-26); PO2 ABG 84.5 mmHg (80.0-100.0)
[2023-02-24 13:12] LABS: Blood Gas Operator Identificat MONRO; Blood Gas Sample Site Radial, left; Oxygen Device VENT
[2023-02-24] MEDS: FUROsemide 10 mg/mL SDV 2mL 20 MG IVP (13:13)
[2023-02-24] MEDS: heparin 5,000 unit/mL INJ 1 mL 5000 UNIT SUBCUT (13:16)
[2023-02-24 13:23] LABS: D Dimer 1.28 ug/mIFEU (0-0.59)
--- NOTE | 2023-02-24 13:27 | USCV_ITS ---
Nakul Nolasco Age: 67 Gender: M : 1955 Exam Date: 02/24/2023 20:20 Ordering Phys: Richard Caraballo MD Technologist: GRANT [place]am [place] [facility] [place]: intubated BP: / HR: 99 Rhythm: Sinus Technical Quality: Very technically difficult study MEASUREMENTS (Male / Female) Normal Values 2D ECHO LV Diastolic Diameter PLAX 4.6 cm 4.2 - 5.9 / 3.9 - 5.3 cm LV Systolic Diameter PLAX 3.1 cm IVS Diastolic Thickness 0.7 cm 0.6 - 1.0 / 0.6 - 0.9 cm IVS Systolic Thickness 1.2 cm LVPW Diastolic Thickness 0.7 cm 0.6 - 1.0 / 0.6 - 0.9 cm LVPW Systolic Thickness 1.2 cm LVOT Diameter 2.4 cm LV Ejection Fraction 2D Teich 61.2 % LA Diameter 2.9 cm M-MODE Aortic Annulus Diameter 2.8 cm LA Ao Ratio MM 1.2 MV E Point Septal Separation 0.5 cm DOPPLER TR Peak Velocity 260.0 cm/s TR Peak Gradient 27.0 mmHg Right Atrial Pressure 6.0 mmHg Pulmonary Artery Systolic Pressu 33.0 mmHg FINDINGS Left Ventricle Left ventricle is normal in size. LV systolic function is grossly normal. Regional wall motion abnormalities cannot accurately be assessed because of poor ultrasonic windows. Right Ventricle Normal in size and function Right Atrium Normal in size Left Atrium Normal in size Mitral Valve Not well visualized Aortic Valve Not well visualized Tricuspid Valve Mild tricuspid regurgitation. Pulmonary artery systolic pressure is normal. Pulmonic Valve Not well visualized Pericardium Normal Aorta Normal in size IVC Not well visualized CONCLUSIONS Technically limited quality echocardiogram because of poor ultrasonic windows. Grossly LV systolic function is normal. Valvular structures are not well-visualized. Comparison with prior echocardiogram is not possible because of limited visualization Luis Jay MD (Electronically Signed) Final Date: 25 February 2023 19:24 S
[2023-02-24 13:30] LABS: Troponin 5 6HR 47.63 ng/L (0-15)
[2023-02-24 13:33] LABS: Troponin 5 6HR Delta -3.37 ng/L (0-12)
[2023-02-24] MEDS: dextrose 5%-sod chloride 0.45% 1,000 ML 75 ML IV (13:43)
[2023-02-24] MEDS: lidocaine 1% 5 ML in potassium chloride premix 100 ML 25 ML IV (13:44)
[2023-02-24] MEDS: cefepime 2,000 MG in sodium chloride 0.9% (plus) 50 ML 100 MG IV (13:46)
[2023-02-24 13:56] LABS: Procalcitonin 0.28 ng/mL (0-0.5); Vitamin B12 943 pg/mL (232-1245)
[2023-02-24] MEDS: vancomycin 1,000 MG in sodium chloride 0.9% 250 ML 250 MG IV (14:20)
[2023-02-24 14:36] LABS: Thyroid Stimulating Hormone 0.62 uIU/mL (0.27-4.20)
[2023-02-24 17:32] LABS: ABG PCO2 45.4 mmHg (35-45); ABG PH Result 7.37 (7.35-7.45); Arterial Blood Gas Hematocrit 42.4 % (42-52); Base Excess ABG 0.7 mmol/L (-2.0-2.0); Blood Gas Allen Test Pos; Blood Gas Sample Type Arterial; Carboxyhemoglobin 0.8 %THgb (0.4-20.1); HCO3 ABG 26.4 mmol/L (22-26); HGB O2 Sat 94.5 % (95-100); Ionized Calcium Level - ABG 1.2 mmol/L (1.1-1.4); Methemoglobin 0.3 % (0.4-1.5); Oxygen Saturation ABG 95.6; PO2 ABG 74.8 mmHg (80.0-100.0); Potassium Level - ABG 3.8 mmol/L (3.5-5.0); Total Hemoglobin 13.8 g/dL (14-18)
[2023-02-24 17:33] LABS: Alveolar-Arterial Oxygen Gradi 24.6 mmHg (5-10); Blood Gas Operator Identificat MONRO; Blood Gas Sample Site Radial, left; Blood Gas Tidal Volume 0.45; Oxygen Device VENT
[2023-02-24] MEDS: pantoprazole 40 mg SDV IVP (17:45)
[2023-02-24] MEDS: propofol 1,000 MG/100 ML INJ 10.21 MG IV (18:22)
--- NOTE | 2023-02-24 21:15 | XRR_ITS ---
PROCEDURE INFORMATION: Exam: XR Chest Exam date and time: 02/24/2023 9:22 PM Age: 67 years old Clinical indication: Device placement; Picc; Additional info: Confirm placement of picc line TECHNIQUE: Imaging protocol: Radiologic exam of the chest. Views: 1 view. COMPARISON: CR (CHEST, ) 02/24/2023 8:03 AM FINDINGS: Tubes, catheters and devices: Left-sided PICC line tip projects over the superior vena cava. Distal aspect of the ET tube projects 3.3 cm superior to the fredy. Distal G-tube is positioned in the left upper quadrant abdomen in the expected location of the stomach fundus. Lungs: There are patchy left perihilar opacities. Pleural spaces: Unremarkable. No pleural effusion. No pneumothorax. Heart/Mediastinum: Unremarkable. No cardiomegaly. Bones/joints: Unremarkable. XR/XR chest 1V portable [id number] IMPRESSION: 1. Left-sided PICC line tip projects over the superior vena cava. 2. There are patchy left perihilar opacities.
[2023-02-24] MEDS: enoxaparin 80 mg/0.8 mL Syringe 70 MG SUBCUT (22:02)
--- NOTE | 2023-02-24 22:09 | PC.NURSE ---
Consulted by house charge for picc placement. Consent obtained by phone. LUE scanned with US an basilic vein was the best option. Vein was straight, 3 mm, an free of visible clot. Pt draped in usual sterile fashion. Using real time US lidocaine injected, vein accessed, an picc floated into position. Chest xray obtained. No bleeding no hematoma. EBL less then 5 ml. Pt arm circumference is 29 cm at 10 cm above the ac fossa. Waiting tip confirmation from radiology.
[2023-02-25] VITALS (91 sets, daily range): BP systolic 84–130; BP diastolic 51–70; PULSE 77–120; RESP 16–24; TEMP 36.8–37.5; O2SAT 84–100
[2023-02-25] MEDS: metroNIDAZOLE IV 500 MG/100 ML PREMIX 100 MG IV ×3 (01:29→17:05)
--- NOTE | 2023-02-25 01:53 | PC.NURSE ---
PICC line placed by external team. Consent received from FRANDY via phone nurse verified x2. Patient has exhibited some response during oral care/suctioning. Unable to follow commands, Pupils equal/reactive. Skin does appear cool and with mottling noted. Temp remains within normal limits.
[2023-02-25] MEDS: cefepime 2,000 MG in sodium chloride 0.9% (plus) 50 ML 100 MG IV ×2 (02:24→14:57)
[2023-02-25] MEDS: ipratropium-albuterol 3 mL Neb INHALATION ×4 (03:08→20:17)
[2023-02-25 04:00] LABS: Basophils % 0.2 %; Hematocrit 37.1 % (42.0-52.0); Hemoglobin 12.2 g/dL (11.7-16.6); Lymphocytes # 0.5 10^3/uL (0.8-4.8); Lymphocytes % 4.4 %; Mean Corpuscular HGB Conc 32.9 g/dL (30.0-36.0); Mean Corpuscular Hemoglobin 30.6 pg (28.0-34.0); Mean Platelet Volume 10.6 fL (7.4-10.4); Monocytes # 0.6 10^3/uL (0.2-0.9); Monocytes % 4.8 %; Neutrophils # 10.52 10^3/uL (1.8-7.7); Neutrophils % 90.3 %; Nucleated Red Blood Cells % 0 %; Platelet Count 355 10^3/cmm (130-400); Red Blood Count 3.99 10^6/uL (4.1-5.3); Red Cell Distribution Width 14.5 % (12.1-15.1); White Blood Count 11.7 10^3/uL (4.0-10.0)
[2023-02-25] MEDS: propofol 1,000 MG/100 ML INJ 12.25 MG IV (04:04)
[2023-02-25 04:18] LABS: Anion Gap 13.6 (5-19); Blood Urea Nitrogen 26 mg/dL (8-23); C Reactive Protein 210.4 mg/L (0.0-4.9); Calcium 8.9 mg/dL (8.5-10.5); Carbon Dioxide 29 mmol/L (22-29); Chloride 105 mmol/L (98-107); Glomerular Filtration Rate 111.8 mL/min (90-130); Glucose 136 mg/dL (65-115); Magnesium 1.9 mg/dL (1.7-2.3); Osmolality Calculated 305 mOsm/kg (285-295); Phosphorus 1.1 mg/dL (2.5-4.5); Potassium 3.6 mmol/L (3.5-5.1); Sodium 144 mmol/L (136-145)
[2023-02-25 04:23] LABS: Lactate (Lactic Acid level) 2.5 mmol/L (0.5-2.2)
[2023-02-25 04:39] LABS: Slide Review Slide Review Perform
[2023-02-25] MEDS: dextrose 5%-sod chloride 0.45% 1,000 ML 75 ML IV ×2 (05:12→18:35)
--- NOTE | 2023-02-25 07:00 | CTR_ITS ---
PROCEDURE INFORMATION: Exam: CTA Chest With Contrast Exam date and time: 02/25/2023 2:04 PM Age: 67 years old Clinical indication: Other: On vent; Additional info: Hypoxia TECHNIQUE: Imaging protocol: Computed tomographic angiography of the chest with contrast. Exam focused on the arteries. 3D rendering (Not supervised by radiologist): MIP and/or 3D reconstructed images were created by the technologist. Radiation optimization: All CT scans at this facility use at least one of these dose optimization techniques: automated exposure control; mA and/or kV adjustment per patient size (includes targeted exams where dose is matched to clinical indication); or iterative reconstruction. Contrast material: OMNI 350; Contrast volume: 56 ml; Contrast route: INTRAVENOUS (IV); REPORTING DATA: Count of CT and Cardiac NM exams in prior 12 months: This patient has received 2 known CTs and 0 known cardiac nuclear medicine studies in the 12 months prior to the current study. COMPARISON: CT angio chest PE protcl [id number] 02/06/2020 5:44 PM RADIATION DOSE METRICS: Total DLP (mGy-cm): 376.22 FINDINGS: Tubes, catheters and devices: There is an ET tube with tip 2 cm above the fredy and an orogastric tube with tip in the stomach. There is a gastrostomy tube with tip in the stomach. Pulmonary arteries: There is no pulmonary embolism. Aorta: Stable 4.2 cm aneurysmal dilatation ascending thoracic aorta without dissection or mural hematoma. Lungs: Severe emphysematous changes and pulmonary fibrosis. Patchy airspace consolidation concerning for pneumonic infiltrates especially in both lower lobes. Mild diffuse interstitial and ground-glass opacity in the lung parenchyma may reflect mild CHF. There is bronchiectasis with patchy mucous plugging especially in the lower lobes. Pleural spaces: Trace right pleural effusion. There is no evidence of pneumothorax. Heart: Unremarkable. No cardiomegaly. No pericardial effusion. Lymph nodes: Unremarkable. No enlarged lymph nodes. Bones/joints: Unremarkable. No acute fracture. Soft tissues: Unremarkable. CT/CT angio chest PE protcl [id number] IMPRESSION: 1. There is no pulmonary embolism. 2. Patchy airspace consolidation concerning for pneumonic infiltrates especially in both lower lobes. 3. Mild diffuse interstitial and ground-glass opacity in the lung parenchyma may reflect mild CHF. 4. Stable 4.2 cm aneurysmal dilatation ascending thoracic aorta without dissection or mural hematoma. COMMENTS: In the absence of a history or active diagnosis of lung cancer, it is recommended that this patient with emphysema be evaluated for enrollment in a low dose CT lung cancer screening program.
[2023-02-25] MEDS: vancomycin 1,000 MG in sodium chloride 0.9% 250 ML 250 MG IV (09:07)
[2023-02-25] MEDS: pantoprazole 40 mg SDV IVP ×2 (09:11→17:05)
[2023-02-25] MEDS: chlorhexidine gluconate 0.12% UDC 15 mL MUCOUS MEM ×2 (09:12→17:05)
[2023-02-25] MEDS: enoxaparin 80 mg/0.8 mL Syringe 70 MG SUBCUT (09:12)
[2023-02-25] MEDS: gabapentin 300 mg Capsule 600 MG PO ×3 (10:18→21:01)
[2023-02-25] MEDS: levETIRAcetam 500 mg Tablet 750 MG PO ×2 (10:18→17:05)
[2023-02-25] MEDS: iohexol 350 mg/mL 500 mL Btl (per mL) IV (14:16)
[2023-02-25] MEDS: baclofen 10 mg Tablet PO ×2 (14:58→21:02)
--- NOTE | 2023-02-25 16:04 | PM.PN ---
Subjective Subjective: Hospital course, labs appreciated. Today morning seen with family/daughter/DPOA at bedside. Patient is awake and alert off sedation. Did have episode of agitation earlier in the morning today. Currently on 40% FiO2, PEEP of 8. Off Levophed since yesterday afternoon. Blood work appreciated for resolving leukocytosis down to 11.7, stable hemoglobin, BMP showing resolving hyponatremia down to 144, creatinine stable at 0.7, lactate down to 2.5, hypophosphatemia with 1.1. Vitals/I&O/Wt Last Vital Signs Temp 99.5 F 02/25/23 07:00 Pulse 98 02/25/23 15:00 Resp 16 02/25/23 14:28 BP 111/64 02/25/23 15:00 Pulse Ox 95 02/25/23 15:00 O2 Del Method Mechanical Ventilation 02/25/23 14:28 FiO2 40 02/25/23 14:28 02/25/23 02/25/23 02/25/23 06:59 14:59 22:59 Intake Total 1270.100 / 4118.159 4.828 / 4.828 Output Total 400 / 1250 Balance 870.100 / 2868.159 4.828 / 4.828 Weight last 48 hrs Weight 68.039 kg Physical Exam Narrative: General: No acute distress, intubated, currently not sedated, awake, at baseline mentation as per family HEENT: PERRLA, pupils bilaterally equal and reactive Chest: Normal respiratory breath sounds all over lung sparks, mild bronchial breath sounds bilateral lower zone CVS: S1-S2 regular, no murmurs, no tachycardia, no gallops, no rubs Abdomen: Soft, nontender, no organomegaly, bowel sounds present, morbidly obese Neuro: Moving all limbs, intubated, Urinary Catheter Management: Rodas: Cath Placed During This Visit: yes Reason for Continuing Indwelling Catheter: Accurate Measurement of Urinary Output in Critically Ill Patients Urinary Catheter Date of Insertion: 02/24/23 Urinary Catheter Time of Insertion: 12:06 Data 02/25/23 02:05 02/25/23 02:05 Micro: Microbiology 02/25/23 02:00 MRSA Culture - Final Nose 02/24/23 09:50 Gram Stain - Final Sputum - Endotracheal Tube Aspirate Sputum Culture - Preliminary 02/24/23 07:35 Blood Culture - Preliminary Blood NEGATIVE TO DATE 02/24/23 07:23 Blood Culture - Preliminary Blood NEGATIVE TO DATE A&P Assessment and plan (1) Septic shock: (2) Aspiration pneumonia: (3) Acute hypercapnic respiratory failure: (4) Hypernatremia: (5) COPD (chronic obstructive pulmonary disease): (6) Altered mental status: Qualifiers: Altered mental status type: unspecified Qualified Code(s): R41.82 - Altered mental status, unspecified (7) Spastic hemiparesis affecting dominant side: (8) Cerebral infarction, unspecified: (9) Expressive aphasia: (10) Essential (primary) hypertension: (11) GERD (gastroesophageal reflux disease): (12) Hypokalemia: (13) Alkalosis: (14) Lactic acidemia: Plan Septic shock with hypoxic and hypercapnic respiratory failure: Most likely in setting of aspiration pneumonia: Patient is DNR/DNI. Intubated in after talking with DPOA/patient's daughter over the phone. Keep mean artery pressure 65. Follow-up blood culture, urine culture, sputum culture. Sepsis present on admission. Keep oxygen saturation 90%. CTA awaited. Patient is on full dose Lovenox. If CTA negative we will switch to therapeutic Lovenox. Continue with vancomycin, cefepime, metronidazole. Patient allergic to penicillin. Check MRSA swab. If negative will discontinue vancomycin. Possible PEG tube dysfunction: As per history patient had 1 L fluid aspirated from PEG tube after intubation. No bowel obstruction or gastric outlet obstruction on CT abdomen pelvis. But patient has been eating solid food at care home as per the daughter and cannot rule out PEG tube blockage. Restart home dose of PEG tube feeding and continue to monitor for next 24 hours. Patient most likely needs to be strict NPO. Sepsis induced encephalopathy: Resolving. Patient as per daughter is at baseline mentation. Start back on full sedation with fentanyl and propofol. Restart home dose of baclofen, gabapentin. Check Keppra levels. Hypernatremia: 146 on admission. Most likely in setting of dehydration. Resolving. Continue with normal saline at 75 cc/h. Repeat BMP in AM. Hypokalemia: Resolved. Restart home medications. CODE STATUS: Discussed in detail with patient's DPOA/daughter at bedside. DNR/DNI. Lovenox for DVT prophylaxis. Protonix 40 mg IV twice daily. Restart home medication including venlafaxine, gabapentin, baclofen. Goals of care discussion: Discussed in detail with patient and DPOA at bedside. Patient will remain DNR/DNI. We did discuss that as patient is DNR we would like to confirm that we can rule out reversible reasons for respiratory failure before extubation. Discussed that going forward would be important for patient to remain n.p.o. as it has risk of aspiration pneumonia at baseline. Daughter would like to see how patient does after extubation and discharge and if he gets depressed again most likely will put him back on diet. Did discuss about hospice given importance of quality of life over quantity of life. Daughter would like to think before making any further decisions. Attestations Medical Necessity Statement*: Requires further hospitalization for management of respiratory failure in setting of aspiration pneumonia requiring mechanical ventilation, possible PEG tube malfunction, hypernatremia from dehydration Coding Level of Care Code Critical Care >/= 30 minutes Critical care time (in minutes): 60 The high probability of a clinically significant, sudden or life threatening deterioration, as referenced in this documentation, required my full and direct attention, intervention and personal management. The critical care time shown is in addition to time spent performing any reported separately billable procedures and includes the following: [x] Data and vital sign review and interpretation [x] Patient assessment, examination and intervention [x] Medication orders and management [x] Patient/Family updates as able [x] Care Coordination and Documentation. Diagnoses Septic shock A41.9; R65.21 Aspiration pneumonia J69.0 Acute hypercapnic respiratory failure J96.02 Hypernatremia E87.0 COPD (chronic obstructive pulmonary disease) J44.9 Altered mental status R41.82 Altered mental status type: unspecified Spastic hemiparesis affecting dominant side G81.10 Cerebral infarction, unspecified I63.9 Expressive aphasia R47.01 Essential (primary) hypertension I10 GERD (gastroesophageal reflux disease) K21.9 Hypokalemia E87.6 Alkalosis E87.3 Lactic acidemia E87.20
[2023-02-25] MEDS: ARIPiprazole 2 mg Tablet PO (17:05)
--- NOTE | 2023-02-25 20:03 | PC.NURSE ---
Propofol Off: Per shift report w/ KRISTOPHER Rader Propofol was turned off on day-shift. Propofol off on arrival to shift @1900. MAR edited for 190 to reflect this.
[2023-02-26] VITALS (59 sets, daily range): BP systolic 94–163; BP diastolic 50–89; PULSE 72–103; RESP 6–96; TEMP 36.8–37.3; O2SAT 88–99
[2023-02-26] MEDS: metroNIDAZOLE IV 500 MG/100 ML PREMIX 100 MG IV ×3 (00:36→16:53)
[2023-02-26] MEDS: cefepime 2,000 MG in sodium chloride 0.9% (plus) 50 ML 100 MG IV ×2 (01:14→15:01)
[2023-02-26 04:10] LABS: Basophils % 0.1 %; Eosinophils % 0.1 %; Hematocrit 29.8 % (42.0-52.0); Hemoglobin 10.2 g/dL (11.7-16.6); Lymphocytes # 0.7 10^3/uL (0.8-4.8); Lymphocytes % 7.1 %; Mean Corpuscular HGB Conc 34.2 g/dL (30.0-36.0); Mean Corpuscular Hemoglobin 32.3 pg (28.0-34.0); Mean Corpuscular Volume 94.3 fl (80-94); Monocytes # 0.5 10^3/uL (0.2-0.9); Monocytes % 5.4 %; Neutrophils # 8.58 10^3/uL (1.8-7.7); Nucleated Red Blood Cells % 0 %; Platelet Count 220 10^3/cmm (130-400); Red Blood Count 3.16 10^6/uL (4.1-5.3); Red Cell Distribution Width 14.7 % (12.1-15.1); White Blood Count 9.9 10^3/uL (4.0-10.0)
[2023-02-26 04:32] LABS: Alanine Aminotransferase 12 U/L (0-41); Albumin Level 2.5 g/dL (3.5-5.2); Alkaline Phosphatase 58 U/L (40-130); Anion Gap 10.4 (5-19); Aspartate Amino Transferase 26 U/L (0-40); Blood Urea Nitrogen 26 mg/dL (8-23); Calcium 8.3 mg/dL (8.5-10.5); Carbon Dioxide 28 mmol/L (22-29); Chloride 107 mmol/L (98-107); Glomerular Filtration Rate 133.6 mL/min (90-130); Glucose 125 mg/dL (65-115); Osmolality Calculated 300 mOsm/kg (285-295); Potassium 3.4 mmol/L (3.5-5.1); Sodium 142 mmol/L (136-145); Total Bilirubin 0.3 mg/dL (0.15-1.2); Total Protein 5.5 g/dL (6.6-8.7)
[2023-02-26] MEDS: chlorhexidine gluconate 4% Btl 118 mL 1 APPLIC TOPICAL (05:00)
--- NOTE | 2023-02-26 05:21 | PC.NURSE ---
Addendum entered by lAiyah Long RN 02/26/23 05:25: second design consultant of 40ml of propofol wasted Original Note: Propofol Wasted: Propofol remained off throughout the shift. Approximately 40ml Propofol wasted w/ KRISTOPHER Ly.
--- NOTE | 2023-02-26 06:00 | XR_ITS ---
WS: [id number] Exam: XR chest 1V portable [id number] Date/Time of Exam: 02/26/2023 6:03 AM Reason For Exam: Intubated Comparison 02/24/2023. There are interstitial infiltrates in the mid and lower left lung and also the right basal region. Th aubrie are slightly more prominent than noted previously. Normal heart size. The mediastinum is normal i n contour. An ET tube is in place ending about 3 cm above the fredy. An enteric tube extends below t he level of the diaphragm but the tip is not visible. A left subclavian central line appears to end a t the cavoatrial junction. No pneumothorax. No obvious pleural effusion. Bony structures are intact. XR/XR chest 1V portable [id number] IMPRESSION: 1. Interstitial infiltrates in the mid and lower left lung and also the right b ase. Infiltrates have increased slightly since the last exam. ET tube and left subclavian central line both in satisfactory position. An enteric tube extends below the level of the diaphragm.
[2023-02-26] MEDS: FUROsemide 10 mg/mL SDV 2mL 20 MG IVP (07:03)
[2023-02-26] MEDS: ipratropium-albuterol 3 mL Neb INHALATION ×2 (07:40→13:44)
--- NOTE | 2023-02-26 08:46 | PC.NUTR ---
Consult for PEG tube feeding received. Recommend Jevity 1.2 bolus feeds with 60 mls fresh water flush before and after, according to following regimen: 8:00 am: 240 mls Noon: 480 mls 4:00 pm: 240 mls 8:00 pm: [address] assessment.
[2023-02-26] MEDS: pantoprazole 40 mg SDV IVP ×2 (09:15→17:14)
[2023-02-26] MEDS: potassium chloride premix 100 ML 25 MEQ IV (09:17)
[2023-02-26] MEDS: baclofen 10 mg Tablet PO ×3 (09:18→21:39)
[2023-02-26] MEDS: potassium chloride ER 20 mEq Tablet 40 MEQ PO (09:18)
[2023-02-26] MEDS: levETIRAcetam 500 mg Tablet 750 MG PO ×2 (09:18→17:13)
[2023-02-26] MEDS: venlafaxine ER (24HR) 150 mg Capsule PO (09:18)
[2023-02-26] MEDS: chlorhexidine gluconate 0.12% UDC 15 mL MUCOUS MEM ×2 (09:18→17:12)
[2023-02-26] MEDS: gabapentin 300 mg Capsule 600 MG PO (09:18)
[2023-02-26] MEDS: acetaminophen 500 mg Tablet PO ×2 (09:48→16:53)
--- NOTE | 2023-02-26 10:41 | PC.NURSE ---
Patient extubated at 0958 to 4L NC. Daughter happened to call right after patient was extubated. Nurse informed her that the patient is doing well, oxygen saturations are holding and patient is maintaining his airway, however it has only been a few minutes since extubation and we will continue to monitor. Per daughter, patient is nonverbal at baseline and has limited use of right side. Patient appears to be at baseline.
[2023-02-26] MEDS: morphine 4 mg/mL SDV 1 mL 1 MG IVP (11:27)
[2023-02-26] MEDS: HYDROcodone-acetaminophen 5-325 mg Tablet 1 TAB PO ×2 (12:14→18:42)
--- NOTE | 2023-02-26 12:26 | PC.NURSE ---
Raghu SUMMERS witnessed 3mg of morphine waste.
[2023-02-26 12:30] LABS: Levetiracetam Immunoassy 8.3 mcg/mL (6.0-46.0)
--- NOTE | 2023-02-26 13:38 | PC.NURSE ---
Patient has intermittent crackles developing. Is able to maintain his airway and oxygen saturation, but is having trouble effectively clearing secretions. Nurse alerted Dr mercedes and received orders to hold fluids, reassess after 2PM labs are resulted.
[2023-02-26 14:41] LABS: Anion Gap 12.1 (5-19); Blood Urea Nitrogen 18 mg/dL (8-23); Calcium 8.5 mg/dL (8.5-10.5); Carbon Dioxide 29 mmol/L (22-29); Chloride 103 mmol/L (98-107); Glomerular Filtration Rate 133.6 mL/min (90-130); Glucose 106 mg/dL (65-115); Osmolality Calculated 292 mOsm/kg (285-295); Potassium 4.1 mmol/L (3.5-5.1); Sodium 140 mmol/L (136-145)
[2023-02-26] MEDS: gabapentin 100 mg Capsule 200 MG PO ×2 (15:09→21:39)
[2023-02-26] MEDS: ARIPiprazole 2 mg Tablet PO (17:13)
--- NOTE | 2023-02-26 17:50 | P.PN_ITS ---
Subjective Subjective: No acute events overnight. Patient had a restful night while being on ventilator. Today morning sedation was turned off. R SBI was acceptable and patient was eventually extubated around 10 AM to 3 L of oxygen supplementation. During the day oxygen supplementation has been turned down to 2 L while saturation is maintained over 95%. Patient seems to be at his baseline mentation. Minimal urine output overnight for which she received IV Lasix 20 mg after which he had a urine output of around 1400 cc. Vitals/I&O/Wt Last Vital Signs Temp 99.2 F 02/26/23 12:30 Pulse 98 02/26/23 14:11 Resp 16 02/26/23 13:46 BP 128/67 02/26/23 12:30 Pulse Ox 96 02/26/23 13:46 O2 Del Method Nasal Cannula 02/26/23 13:46 O2 Flow Rate 2 02/26/23 13:46 FiO2 35 02/26/23 09:39 02/26/23 02/26/23 02/26/23 06:59 14:59 22:59 Intake Total 856.917 / 2677.390 598.791 / 598.791 Output Total 250 / 450 1450 / 1450 Balance 606.917 / 2227.390 -851.209 / -851.209 Physical Exam Narrative: General: No acute distress, extubated to nasal cannula, at baseline mentation HEENT: PERRLA, pupils bilaterally equal and reactive Chest: Normal vesicular breath sounds all over lung sparks, mild bronchial breath sounds bilateral lower zone CVS: S1-S2 regular, no murmurs, no tachycardia, no gallops, no rubs Abdomen: Soft, nontender, no organomegaly, bowel sounds present, morbidly obese Neuro: Moving all limbs, no focal deficits Urinary Catheter Management: Rodas: Cath Placed During This Visit: yes Reason for Continuing Indwelling Catheter: Accurate Measurement of Urinary O utput in Critically Ill Patients Urinary Catheter Date of Insertion: 02/24/23 Urinary Catheter Time of Insertion: 12:06 Data 02/26/23 03:40 02/26/23 14:12 Micro: Microbiology 02/24/23 09:50 Gram Stain - Final Sputum - Endotracheal Tube Aspirate Sputum Culture - Preliminary Yeast species A&P Assessment and plan (1) Septic shock: (2) Aspiration pneumonia: (3) Acute hypercapnic respiratory failure: (4) Hypernatremia: (5) COPD (chronic obstructive pulmonary disease): (6) Altered mental status: Qualifiers: Altered mental status type: unspecified Qualified Code(s): R41.82 - Altered mental status, unspecified (7) Spastic hemiparesis affecting dominant side: (8) Cerebral infarction, unspecified: (9) Expressive aphasia: (10) Essential (primary) hypertension: (11) GERD (gastroesophageal reflux disease): (12) Hypokalemia: (13) Alkalosis: (14) Lactic acidemia: Plan Septic shock with hypoxic and hypercapnic respiratory failure: Most likely in setting of aspiration pneumonia: Patient is DNR/DNI. Intubated in after talking with DPOA/patient's daughter over the phone. Keep mean artery pressure 65. Extubated on 02/26. Follow-up blood culture, urine culture. Sputum Cx positive for yeast. Sepsis present on admission. Keep oxygen saturation 90%. CTA appreciated. C/w prophylactic Lovenox. Continue with cefepime, metronidazole. MRSA negative. Discontinue vancomycin. Start on oral fluconazole 200 mg daily for 7 days. Possible PEG tube dysfunction: As per history patient had 1 L fluid aspirated from PEG tube after intubation. No bowel obstruction or gastric outlet obstruction on CT abdomen pelvis. But patient has been eating solid food [place] [facility] as per the daughter and cannot rule out PEG tube blockage. Patient doing well on PEG tube feeds without any residuals. Dietitian recommendations appreciated. Increase as per the recommendations. Free water flushes 200 cc every 6 hourly. Strict n.p.o. on discharge. Sepsis induced encephalopathy: Resolving. Patient as per daughter is at baseline mentation. Resolved. Keppra level stable. Continue with home dose of baclofen and Keppra. Decrease gabapentin to 100 mg 3 times daily. Hypernatremia: Resolving. Stop IV fluids. Free water is as above. Repeat BMP in AM. Hypokalemia: Resolved. Restart home medications. CODE STATUS: Discussed in detail with patient's DPOA/daughter at bedside. DNR/D NI. Lovenox for DVT prophylaxis. Protonix 40 mg IV twice daily. Restart home medication including venlafaxine, gabapentin, baclofen. Goals of care discussion: Discussed in detail with patient and DPOA at bedside. Patient will remain DNR/DNI. We did discuss that as patient is DNR we would like to confirm that we can rule out reversible reasons for respiratory failure before extubation. Discussed that going forward would be important for patient to remain n.p.o. as it has risk of aspiration pneumonia at baseline. Daughter would like to see how patient does after extubation and discharge and if he gets depressed again most likely will put him back on diet. Did discuss about hospice given importance of quality of life over quantity of life. Daughter would like to think before making any further decisions. Attestations Medical Necessity Statement*: Requires further hospitalization for management of respiratory failure postextubation care while PEG tube feeds are increased and hypernatremia resolves Coding Level of Care Code Critical Care >/= 30 minutes Critical care time (in minutes): 60 The high probability of a clinically significant, sudden or life threatening deterioration, as referenced in this documentation, required my full and direct attention, intervention and personal management. The critical care time shown is in addition to time spent performing any reported separately billable procedures and includes the following: [x] Data and vital sign review and interpretation [x ] Patient assessment, examination and intervention [x] Medication orders and management [x] Patient/Family updates as able [x] Care Coordination and Documentation. Diagnoses Septic shock A41.9; R65.21 Aspiration pneumonia J69.0 Acute hypercapnic respiratory failure J96.02 Hypernatremia E87.0 COPD (chronic obstructive pulmonary disease) J44.9 Altered mental status R41.82 Altered mental status type: unspecified Spastic hemiparesis affecting dominant side G81.10 Cerebral infarction, unspecified I63.9 Expressive aphasia R47.01 Essential (primary) hypertension I10 GERD (gastroesophageal reflux disease) K21.9 Hypokalemia E87.6 Alkalosis E87.3 Lactic acidemia E87.20
[2023-02-26] MEDS: enoxaparin 40 mg/0.4 mL Syringe SUBCUT (18:33)
[2023-02-26] MEDS: fluconazole 100 mg Tablet 200 MG PO (18:33)
--- NOTE | 2023-02-26 19:23 | PC.NURSE ---
SHift SUmmary: Uneventful shift. Patient was extubated to 4L NC in the morning and titrated down to 2LNC. Extubation was uneventful. Patient has rested in bed, frequently repositioned. Intermittent crackles present. Tube feed orders updated. Peg tube has worked without complications. 1750mL of urine output.
[2023-02-26 21:10] LABS: Vancomycin Trough 4.5 ug/mL (10-15)
--- NOTE | 2023-02-26 21:56 | PC.NURSE ---
Strict NPO: Pt has been strict NPO throughout hospital stay. All PO meds given via PEG tube. Dr. Shauna pantoja.
--- NOTE | 2023-02-26 22:00 | PC.NURSE ---
Addendum entered by Juanito Oviedo RN 02/26/23 22:03: Wasted 95mls of Fentanyl with Alondra SUMMERS. Original Note: Fentanyl Wasted: Fentanyl drip turned off on day-shift. Fentanyl drip removed from room and approximately 95ml wasted w/ KRISTOPHER Solomon.
[2023-02-27] VITALS (51 sets, daily range): BP systolic 108–166; BP diastolic 73–95; PULSE 80–111; RESP 16–31; O2SAT 85–100
[2023-02-27] MEDS: metroNIDAZOLE IV 500 MG/100 ML PREMIX 100 MG IV ×3 (01:37→16:33)
[2023-02-27] MEDS: cefepime 2,000 MG in sodium chloride 0.9% (plus) 50 ML 100 MG IV ×2 (01:43→13:30)
--- NOTE | 2023-02-27 01:59 | PC.NURSE ---
Increasing O2 requirements: Oxygen requirements increasing throughout shift. Started shift @2L NC, currently @6L oxy mask. Breathing is shallow, lungs sounds are coarse. Pt occasional exhibits a weak wet cough. SpO2 dropped into the mid 80's around 0145. RT called. Parth, RT preformed deep suctioning (@0150) on the pt and stayed at pt's bedside until SpO2 recovered into the high 90's. Pt remains on 6L oxymask, SpO2 94%. Dr. Hernandez made aware. No new orders at this time.
[2023-02-27] MEDS: HYDROcodone-acetaminophen 5-325 mg Tablet 1 TAB PO ×3 (02:52→19:46)
[2023-02-27 03:49] LABS: Basophils % 0.2 %; Eosinophils # 0.2 10^3/uL (0.0-0.8); Eosinophils % 1.5 %; Hematocrit 34.8 % (42.0-52.0); Hemoglobin 11.3 g/dL (11.7-16.6); Lymphocytes # 0.6 10^3/uL (0.8-4.8); Lymphocytes % 4.7 %; Mean Corpuscular HGB Conc 32.5 g/dL (30.0-36.0); Mean Corpuscular Hemoglobin 29.7 pg (28.0-34.0); Mean Corpuscular Volume 91.6 fl (80-94); Monocytes # 0.6 10^3/uL (0.2-0.9); Monocytes % 4.4 %; Neutrophils % 88.6 %; Nucleated Red Blood Cells % 0 %; Platelet Count 238 10^3/cmm (130-400); Red Cell Distribution Width 14.4 % (12.1-15.1); White Blood Count 12.4 10^3/uL (4.0-10.0)
[2023-02-27 04:10] LABS: Alanine Aminotransferase 15 U/L (0-41); Albumin Level 2.8 g/dL (3.5-5.2); Alkaline Phosphatase 75 U/L (40-130); Aspartate Amino Transferase 34 U/L (0-40); Blood Urea Nitrogen 13 mg/dL (8-23); Calcium 8.6 mg/dL (8.5-10.5); Carbon Dioxide 31 mmol/L (22-29); Chloride 98 mmol/L (98-107); Globulin 3.7 g/dL (1.3-4.6); Glomerular Filtration Rate 164.9 mL/min (90-130); Glucose 88 mg/dL (65-115); Osmolality Calculated 284 mOsm/kg (285-295); Sodium 137 mmol/L (136-145); Total Bilirubin 0.5 mg/dL (0.15-1.2); Total Protein 6.5 g/dL (6.6-8.7)
[2023-02-27] MEDS: ipratropium-albuterol 3 mL Neb INHALATION ×3 (07:44→20:01)
[2023-02-27] MEDS: gabapentin 100 mg Capsule 200 MG PO ×3 (08:42→21:24)
[2023-02-27] MEDS: fluconazole 100 mg Tablet 200 MG PO (08:42)
[2023-02-27] MEDS: levETIRAcetam 500 mg Tablet 750 MG PO ×2 (08:42→18:04)
[2023-02-27] MEDS: chlorhexidine gluconate 0.12% UDC 15 mL MUCOUS MEM ×2 (08:42→18:04)
[2023-02-27] MEDS: baclofen 10 mg Tablet PO ×3 (08:42→21:24)
[2023-02-27] MEDS: venlafaxine ER (24HR) 150 mg Capsule PO (08:43)
[2023-02-27] MEDS: pantoprazole 40 mg SDV IVP (08:43)
--- NOTE | 2023-02-27 10:18 | PC.SOCIAL ---
IMM update IMM updated. Pg 2 of IMM dated and reviewed with pt. Copy provided to pt and dated, initialed and placed in chart.
--- NOTE | 2023-02-27 10:29 | XR_ITS ---
WS: [id number] Exam: XR chest 1V portable [id number] Date/Time of Exam: 02/27/2023 10:31 AM Reason For Exam: pna Comparison 02/26/2023. Again noted are bilateral pulmonary infiltrates. Infiltrates in the mid and lower left lung have wors ened slightly since the prior study. No other change. ET tube has been removed. Left subclavian centr al line ends at the cavoatrial junction. Heart size remains normal. Enteric tube has been removed. No pneumothorax or pleural effusion noted. Bony structures are intact. The mediastinum is normal in con tour. XR/XR chest 1V portable [id number] IMPRESSION: 1. Bilateral pulmonary infiltrates. Left pulmonary infiltrates have worsened sl ightly since the last exam but no other significant change.
[2023-02-27] MEDS: amlodipine 10 mg Tablet PO (10:48)
--- NOTE | 2023-02-27 15:50 | PM.PN ---
Subjective Subjective: Overnight patient had 1 episode of desaturation and his oxygen requirements went up. He was placed on oxygen mask to keep his saturations at 90. His saturations improved after deep suction and he was turned down to 4 L today morning to maintain saturation over 92%. Patient is awake, alert to self, weak appearing. Not too much secretion as per respiratory therapist today but patient is finding it difficult to clear his throat. Tolerating tube feeds well. Document urine output yesterday 3200 cc. Blood work showing stable CBC, mild worsening of leukocytosis, stable BMP with a normal potassium level. Vitals/I&O/Wt Last Vital Signs Temp 98.3 F 02/26/23 21:30 Pulse 106 H 02/27/23 15:15 Resp 20 H 02/27/23 15:15 BP 139/93 02/27/23 14:30 Pulse Ox 94 02/27/23 15:15 O2 Del Method Nasal Cannula 02/27/23 15:15 O2 Flow Rate 4 02/27/23 15:15 FiO2 35 02/26/23 09:39 02/27/23 02/27/23 02/27/23 06:59 14:59 22:59 Intake Total 350 / 2078.791 480 / 480 Output Total 1250 / 3200 Balance -900 / -1121.209 480 / 480 Physical Exam Narrative: General: No acute distress, extubated to nasal cannula, at baseline mentation HEENT: PERRLA, pupils bilaterally equal and reactive Chest: Normal vesicular breath sounds all over lung sparks, mild bronchial breath sounds bilateral lower zone CVS: S1-S2 regular, no murmurs, no tachycardia, no gallops, no rubs Abdomen: Soft, nontender, no organomegaly, bowel sounds present, morbidly obese Neuro: Moving all limbs, no focal deficits Urinary Catheter Management: Rodas: Cath Placed During This Visit: yes Reason for Continuing Indwelling Catheter: Accurate Measurement of Urinary Output in Critically Ill Patients Urinary Catheter Date of Insertion: 02/24/23 Urinary Catheter Time of Insertion: 12:06 Data 02/27/23 03:05 02/27/23 03:05 Micro: Microbiology 02/24/23 09:50 Gram Stain - Final Sputum - Endotracheal Tube Aspirate Sputum Culture - Preliminary Yeast species A&P Assessment and plan (1) Septic shock: (2) Aspiration pneumonia: (3) Acute hypercapnic respiratory failure: (4) Hypernatremia: (5) COPD (chronic obstructive pulmonary disease): (6) Altered mental status: Qualifiers: Altered mental status type: unspecified Qualified Code(s): R41.82 - Altered mental status, unspecified (7) Spastic hemiparesis affecting dominant side: (8) Cerebral infarction, unspecified: (9) Expressive aphasia: (10) Essential (primary) hypertension: (11) GERD (gastroesophageal reflux disease): (12) Hypokalemia: (13) Alkalosis: (14) Lactic acidemia: Plan Septic shock with hypoxic and hypercapnic respiratory failure: Resolved. Most likely in setting of aspiration pneumonia: Patient is DNR/DNI. Intubated in after talking with DPOA/patient's daughter over the phone. Extubated on 02/26. Blood cultures so far negative. Sputum culture growing yeast Keep oxygen saturation 90%. CTA appreciated. C/w prophylactic Lovenox. Continue with cefepime, metronidazole, fluconazole 200 mg daily for 7 days. We will continue IV antibiotics for overall 5 days. Day 4/5 today. Aggressive pulmonary toilet as possible given mentation with chest vest. Patient would not be able to work well with incentive spirometry and flutter valve. Possible PEG tube dysfunction: Most likely blocked because of oral solid food intake. Patient has been tolerating PEG tube feeds well during hospitalization. As per history patient had 1 L fluid aspirated from PEG tube after intubation. No bowel obstruction or gastric outlet obstruction on CT abdomen pelvis. But patient has been eating solid food at [facility] as per the daughter and cannot rule out PEG tube blockage. Continue PEG tube feeds as per dietary recommendations. Free water flush 100 cc every 6 hours. Sepsis induced encephalopathy: Resolving. Patient as per daughter is at baseline mentation. Resolved. Keppra level stable. Continue with home dose of baclofen and Keppra. Decrease gabapentin to 100 mg 3 times daily. Hypernatremia: Resolved. Free water is as above. Repeat BMP in AM. Hypokalemia: Resolved. Restart home medications. CODE STATUS: Discussed in detail with patient's DPOA/daughter at bedside. DNR/DNI. Lovenox for DVT prophylaxis. Protonix 40 mg IV twice daily. Restart home medication including venlafaxine, gabapentin, baclofen. Goals of care discussion: Discussed goals of care in detail with patient's daughter/DPOA again today. We discussed that patient was extubated successfully but seems to be extremely weak most likely in setting of his baseline condition because of the stroke along with poor mentation which makes him at a higher risk of aspiration or choking even on his saliva/phlegm. Did discuss that that is possible reason for him to desaturate overnight and is possible that the event would happen again. We did discuss that he is at a high risk of aspiration going forward and should remain n.p.o. given his current goals of care and even with that he is at a risk of recurrent aspiration pneumonia or mucous plugging requiring possiblyrecurrent admissions. Daughter verbalized understanding states quality of life is more important to the patient and she would want to go ahead with hospice. We discussed hospice would mean that he will continue the oral medications if and when possible through PEG tube, but if and when he gets sick again plan would be to keep him comfortable at the [facility]. Daughter verbalized understanding and would want to go ahead and set up hospice. Case management alerted. No further blood work. Transfer out of ICU to [facility]. Attestations Medical Necessity Statement*: Requires further hospitalization for management of respiratory failure, postextubation in setting of aspiration pneumonia in a patient with baseline disability secondary to stroke while hospice is set up. Diagnoses Septic shock A41.9; R65.21 Aspiration pneumonia J69.0 Acute hypercapnic respiratory failure J96.02 Hypernatremia E87.0 COPD (chronic obstructive pulmonary disease) J44.9 Altered mental status R41.82 Altered mental status type: unspecified Spastic hemiparesis affecting dominant side G81.10 Cerebral infarction, unspecified I63.9 Expressive aphasia R47.01 Essential (primary) hypertension I10 GERD (gastroesophageal reflux disease) K21.9 Hypokalemia E87.6 Alkalosis E87.3 Lactic acidemia E87.20
[2023-02-27] MEDS: ARIPiprazole 2 mg Tablet PO (18:04)
[2023-02-27] MEDS: enoxaparin 40 mg/0.4 mL Syringe SUBCUT (18:04)
[2023-02-27] MEDS: atorvastatin 40 mg Tablet PO (19:46)
[2023-02-27] MEDS: budesonide 0.5 mg/2 mL Neb INHALATION (20:00)
[2023-02-28] VITALS (38 sets, daily range): BP systolic 105–150; BP diastolic 63–89; PULSE 81–101; RESP 17–30; TEMP 37.1–37.2; O2SAT 93–100
[2023-02-28] MEDS: cefepime 2,000 MG in sodium chloride 0.9% (plus) 50 ML 100 MG IV (01:24)
[2023-02-28] MEDS: metroNIDAZOLE IV 500 MG/100 ML PREMIX 100 MG IV ×2 (01:25→09:55)
[2023-02-28] MEDS: ipratropium-albuterol 3 mL Neb INHALATION ×3 (02:37→13:01)
--- NOTE | 2023-02-28 06:00 | XRR_ITS ---
PROCEDURE INFORMATION: Exam: XR Chest Exam date and time: 02/28/2023 4:36 AM Age: 67 years old Clinical indication: Other: Daily portable; Patient HX: No longer intubated. TECHNIQUE: Imaging protocol: Radiologic exam of the chest. 1image(s) are provided. Views: 1 view. COMPARISON: 1. CR XR chest 1V portable [id number] 02/27/2023 9:[address] angio chest PE protcl [id number] 02/25/2023 2:04 PM FINDINGS: Tubes, catheters and devices: The left PICC line remains similar overall. Lungs: There is some persistent patchy consolidation of the left lung base albeit marginally decreased in density suggestive of some slight interval improvement. Pleural spaces: There is some costophrenic angle blunting present. No pneumothorax is appreciated. There is some fissure averaging. Heart/Mediastinum: The cardiomediastinal silhouette is upper normal in size. No cardiac decompensation is appreciated. Diaphragm: The hemidiaphragms are symmetric. Bones/joints: Osseous alignment is maintained.No interval displaced fracture or dislocation is appreciated. Soft tissues: No radiopaque foreign body or subcutaneous emphysema is appreciated. Other findings: There is chronic air trapping as well as some scarring type appearance similar overall. No other significant interval changes are appreciated. XR/XR chest 1V portable [id number] IMPRESSION: There is some persistent patchy inflammatory appearance of the left lung base although slightly decreased in density suggestive of some interval improvement.
[2023-02-28] MEDS: budesonide 0.5 mg/2 mL Neb INHALATION (08:09)
--- NOTE | 2023-02-28 09:52 | P.DS_ITS ---
Discharge Providers Date of Admission: 02/24/23 11:20 Date of Discharge: February 28, 2023 Attending Provider at Admission: Richard Caraballo MD Attending Provider at Discharge: Rios Villatoro MD Primary Care Provider: Rex Bernardo MD Diagnoses at Discharge Discharge Diagnosis (1) Septic shock: Status: Acute (2) Aspiration pneumonia: Status: Acute (3) Acute hypercapnic respiratory failure: Status: Acute (4) Hypernatremia: Status: Acute (5) COPD (chronic obstructive pulmonary disease): Status: Acute (6) Altered mental status: Status: Acute Qualifiers: Altered mental status type: unspecified Qualified Code(s): R41.82 - Altered mental status, unspecified (7) Spastic hemiparesis affecting dominant side: Status: Acute (8) Cerebral infarction, unspecified: Status: Acute (9) Expressive aphasia: Status: Acute (10) Essential (primary) hypertension: Status: Acute (11) GERD (gastroesophageal reflux disease): Status: Acute (12) Hypokalemia: Status: Acute (13) Alkalosis: Status: Acute (14) Lactic acidemia: Status: Acute Reason for Visit Reason for Visit: RESP. DISTRESS Brief History: History as per HPI: Nakul Nolasco is a 67 year old male history of CVA, dysphagia status post PEG tube placement, was previously DNR/DNI was brought in from the [facility], with chief complaint of altered mental status, EMS intubated him in the field on arrival his lactic acid was high he met the sepsis criteria, endotracheal tube was placed 1 ER physician verified CODE STATUS as per the daughter they would like to keep patient full code there is PEG tube in place, there was concern for gastric outlet obstruction considering a lot of air balloon was deflated pulled back and then reinflated, but 1 L content obtained, NG tube was placed patient was put on Zosyn he was given 2 L of fluid in the ER judicious use of fluids because of volume overloaded chest x-ray findings, he was given rocuronium, propofol along ceftriaxone, metronidazole and Decadron. As per the daughter she allowed intubation because she was afraid that she would not see her father, she is wanting us to continue medical treatment for now patient will stay DNR/DNI now onwards she will further decision depending on progress on Sunday Hospital Course Hospital Course Patient was admitted to the ICU for further evaluation and management of respiratory failure and hypernatremia. On admission there was concern for PEG tube malfunction versus obstruction. CT abdomen pelvis was done which ruled out any bowel obstruction. After discussion with patient's daughter it is believed that PEG tube obstruction is most likely secondary to solid food particles as patient has been allowed to eat at the [facility]. Patient was started on broad-spectrum antibiotics along with IV fluids. Patient was eventually extubated on 02/26. Postextubation he has been having recurrent episodes of requiring higher oxygen supplementation secondary to increased mucus requiring suction. Had a prolonged goals of care discussion with patient's daughter/DPOA.? We discussed that patient was extubated successfully but seems to be extremely weak most likely in setting of his baseline condition because of the stroke along with poor mentation which makes him at a higher risk of aspiration or choking even on his saliva/phlegm.? Did discuss that that is possible reason for him to desaturate overnight and is possible that the event would happen again.? We did discuss that he is at a high risk of aspiration going forward and should remain n.p.o. given his current goals of care and even with that he is at a risk of recurrent aspiration pneumonia or mucous plugging requiring possiblyrecurrent admissions. Daughter verbalized understanding states quality of life is more important to the patient and she would want to go ahead with hospice.? We discussed hospice would mean that he will continue the oral medications if and when possible through PEG tube, but if and when he gets sick again plan would be to keep him comfortable at the [facility]. Patient is discharged back to [facility]F with hospice on oral fluconazole and Levaquin for next 5 days. He is due for regimen has been changed as well and is to be given as directed below. Physical Exam Narrative: General: No acute distress, extubated to nasal cannula, at baseline mentation HEENT: PERRLA, pupils bilaterally equal and reactive Chest: Normal vesicular breath sounds all over lung sparks, mild bronchial breath sounds bilateral lower zone CVS: S1-S2 regular, no murmurs, no tachycardia, no gallops, no rubs Abdomen: Soft, nontender, no organomegaly, bowel sounds present, morbidly obese Neuro: Moving all limbs, no focal deficits Urinary Catheter Management: Rodas: Cath Placed During This Visit: yes Reason for Continuing Indwelling Catheter: Accurate Measurement of Urinary Output in Critically Ill Patients Urinary Catheter Date of Insertion: 02/24/23 Urinary Catheter Time of Insertion: 12:06 Discharge Data Studies Completed and Pending Completed Studies During Hospitalization Category Date Time Status CT abdomen pelvis w con* [id number] Stat Cat Scan 02/24/23 08:[address] head wo con* [id number] Stat Cat Scan 02/24/23 08:42 Completed CTA chest [CT angio chest PE protcl 55553] Routine Cat Scan 02/25/23 07:00 Completed XR chest 1V portable [id number] Q48H Exams 02/26/23 06:00 Completed XR chest 1V portable [id number] Q48H Exams 02/28/23 06:00 Completed XR chest 1V portable [id number] Routine Exams 02/27/23 10:29 Completed XR chest 1V portable [id number] Stat Exams 02/24/23 06:38 Completed XR chest 1V portable [id number] Stat Exams 02/24/23 06:56 Completed XR chest 1V portable [id number] Stat Exams 02/24/23 21:15 Completed CV. echo complete* [id number] Routine Ultrasound 02/24/23 13:27 Completed Pending at discharge Category Date Time Status XR chest 1V portable [id number] Q48H Exams 03/02/23 06:00 Ordered Blood Culture Stat Lab 02/24/23 07:35 Results Sputum Culture and Gram Stain Routine Lab 02/24/23 09:50 Results Radiology Impressions Abdomen/Pelvis CT 02/24/23 08:42 IMPRESSION: 1. No acute abnormality in the abdomen and pelvis. 2. Lung infiltrates. Head CT 02/24/23 08:42 IMPRESSION: No acute intracranial pathology detected. Chest CTA 02/25/23 07:00 IMPRESSION: 1. There is no pulmonary embolism. 2. Patchy airspace consolidation concerning for pneumonic infiltrates especially in both lower lobes. 3. Mild diffuse interstitial and ground-glass opacity in the lung parenchyma may reflect mild CHF. 4. Stable 4.2 cm aneurysmal dilatation ascending thoracic aorta without dissection or mural hematoma. COMMENTS: In the absence of a history or active diagnosis of lung cancer, it is recommended that this patient with emphysema be evaluated for enrollment in a low dose CT lung cancer screening program. Chest X-Ray 02/28/23 06:00 IMPRESSION: There is some persistent patchy inflammatory appearance of the left lung base although slightly decreased in density suggestive of some interval improvement. Microbiology 02/24/23 09:50 Sputum - Endotracheal Tube Aspirate Gram Stain - Final 02/24/23 09:50 Sputum - Endotracheal Tube Aspirate Sputum Culture - P reliminary Yeast species 02/25/23 02:00 Nose MRSA Culture - Final 02/24/23 07:35 Blood Blood Culture - Preliminary NEGATIVE TO DATE 02/24/23 07:23 Blood Blood Culture - Preliminary NEGATIVE TO DATE Laboratory Results WBC 12.4 10^3/uL (4.0-10.0) H 02/27/23 03:05 RBC 3.80 10^6/uL (4.1-5.3) L 02/27/23 03:05 Hgb 11.3 g/dL (11.7-16.6) L 02/27/23 03:05 Hct 34.8 % (42.0-52.0) L 02/27/23 03:05 MCV 91.6 fl (80-94) 02/27/23 03:05 MCH 29.7 pg (28.0-34.0) 02/27/23 03:05 MCHC 32.5 g/dL (30.0-36.0) 02/27/23 03:05 RDW 14.4 % (12.1-15.1) 02/27/23 03:05 Plt Count 238 10^3/cmm (130-400) 02/27/23 03:05 MPV 10.0 fL (7.4-10.4) 02/27/23 03:05 Neut % (Auto) 88.6 % 02/27/23 03:05 Lymph % (Auto) 4.7 % 02/27/23 03:05 Borden % (Auto) 4.4 % 02/27/23 03:05 Eos % (Auto) 1.5 % 02/27/23 03:05 Baso % (Auto) 0.2 % 02/27/23 03:05 Neut # (Auto) 11.00 10^3/uL (1.8-7.7) H 02/27/23 03:05 Lymph # (Auto) 0.6 10^3/uL (0.8-4.8) L 02/27/23 03:05 [place] # (Auto) 0.6 10^3/uL (0.2-0.9) 02/27/23 03:05 Eos # (Auto) 0.2 10^3/uL (0.0-0.8) 02/27/23 03:05 Baso # (Auto) 0.0 10^3/uL (0.0-0.1) 02/27/23 03:05 Nucleated RBC % (auto) 0 % 02/27/23 03:05 Nucleated RBCs # 0.0 /100WBC 02/27/23 03:05 D-Dimer 1.28 ug/mIFEU (0-0.59) H 02/24/23 06:37 Specimen Type Arterial 02/24/23 17:20 Sample Site Radial, left 02/24/23 17:20 ABG pH 7.37 (7.35-7.45) 02/24/23 17:20 ABG pCO2 45.4 mmHg (35-45) H 02/24/23 17:20 ABG pO2 74.8 mmHg (80.0-100.0) L 02/24/23 17:20 ABG HCO3 26.4 mmol/L (22-26) H 02/24/23 17:20 ABG O2 Saturation 95.6 02/24/23 17:20 ABG Base Excess 0.7 mmol/L (-2.0-2.0) 02/24/23 17:20 Kapil Test Pos 02/24/23 17:20 A-a O2 Gradient 24.6 mmHg (5-10) H 02/24/23 17:20 Hematocrit 42.4 % (42-52) 02/24/23 17:20 Hgb O2 Saturation 94.5 % (95-100) L 02/24/23 17:20 Carboxyhemoglobin 0.8 %THgb (0.4-20.1) 02/24/23 17:20 Methemoglobin 0.3 % (0.4-1.5) L 02/24/23 17:20 Total Hemoglobin 13.8 g/dL (14-18) L 02/24/23 17:20 Sodium 147.0 mmol/L (131-143) H 02/24/23 17:20 Potassium 3.8 mmol/L (3.5-5.0) 02/24/23 17:20 Glucose 207.0 mg/dL (70-115) H 02/24/23 17:20 Ionized Calcium 1.2 mmol/L (1.1-1.4) 02/24/23 17:20 O2 Delivery Device Vent 02/24/23 17:20 FiO2 45.0 % 02/24/23 17:20 Tidal Volume 0.45 02/24/23 17:20 PEEP 8.0 cmH20 02/24/23 17:20 Predictive Maintenance Technician ID Rere 02/24/23 17:20 Sodium 137 mmol/L (136-145) 02/27/23 03:05 Potassium 4.0 mmol/L (3.5-5.1) 02/27/23 03:05 Chloride 98 mmol/L (98-107) 02/27/23 03:05 Carbon Dioxide 31 mmol/L (22-29) H 02/27/23 03:05 Anion Gap 12.0 (5-19) 02/27/23 03:05 BUN 13 mg/dL (8-23) 02/27/23 03:05 Creatinine 0.5 mg/dL (0.7-1.2) L 02/27/23 03:05 GFR Calculation 164.9 mL/min (90-130) H 02/27/23 03:05 Glucose 88 mg/dL (65-115) 02/27/23 03:05 Calculated Osmolality 284 mOsm/kg (285-295) L 02/27/23 03:05 Lactic Acid 3.4 mmol/L (0.5-2.2) H 02/24/23 06:37 Lactic Acid (Sepsis) 4.1 mmol/L (0.5-2.2) H* 02/24/23 08:50 Lactate 2.5 mmol/L (0.5-2.2) H 02/25/23 02:05 Calcium 8.6 mg/dL (8.5-10.5) 02/27/23 03:05 Phosphorus 1.1 mg/dL (2.5-4.5) L 02/25/23 02:05 Magnesium 1.9 mg/dL (1.7-2.3) 02/25/23 02:05 Total Bilirubin 0.5 mg/dL (0.15-1.2) 02/27/23 03:05 AST 34 U/L (0-40) 02/27/23 03:05 ALT 15 U/L (0-41) 02/27/23 03:05 Alkaline Phosphatase 75 U/L (40-130) 02/27/23 03:05 Troponin T Baseline 51 ng/L (0-15) H 02/24/23 06:37 Troponin T 120 Minute 53.65 ng/L (0-15) H 02/24/23 08:50 Delta Troponin T 2.65 ABS# (0-10) 02/24/23 08:50 Troponin T Hi Sens 6Hr 47.63 ng/L (0-15) H 02/24/23 12:47 Troponin T Hi Sens 6Hr Delta -3.37 ng/L (0-12) L 02/24/23 12:47 C-Reactive Protein 210.4 mg/L (0.0-4.9) H 02/25/23 02:05 Total Protein 6.5 g/dL (6.6-8.7) L 02/27/23 03:05 Albumin 2.8 g/dL (3.5-5.2) L 02/27/23 03:05 Globulin 3.7 g/dL (1.3-4.6) 02/27/23 03:05 Lipase 16 U/L (13-60) 02/24/23 06:37 Vitamin B12 943 pg/mL (232-1245) 02/24/23 12:47 Procalcitonin 0.28 ng/mL (0-0.5) 02/24/23 12:47 TSH 0.62 uIU/mL (0.27-4.20) 02/24/23 12:47 Urine Color Yellow (Yellow) 02/24/23 09:14 Urine Appearance Clear (CLEAR) 02/24/23 09:14 Urine pH 5 (5-7) 02/24/23 09:14 Ur Specific [place] 1.030 (1.005-1.030) 02/24/23 09:14 Urine Protein 2+ (Negative) H 02/24/23 09:14 Urine Glucose (UA) Norm (Normal) 02/24/23 09:14 Urine Ketones 1+ (Negative) H 02/24/23 09:14 Urine Blood Trace (Negative) H 02/24/23 09:14 Urine Nitrate Negative (Negative) 02/24/23 09:14 Urine Bilirubin Neg (Negative) 02/24/23 09:14 Urine Urobilinogen 1 mg/dL (Negative) H 02/24/23 09:14 Ur Leukocyte Esterase Negative (Negative) 02/24/23 09:14 Urine RBC 0-4 /hpf (0-2) H 02/24/23 09:14 Urine WBC Rare /hpf (0-5) 02/24/23 09:14 Ur Squamous Epith Cells 0-4 /hpf (0-5) H 02/24/23 09:14 Amorphous Sediment Not Reportable 02/24/23 09:14 Urine Bacteria 1+ /hpf (NONE) H 02/24/23 09:14 Hyaline Casts 5-10 /lpf H 02/24/23 09:14 Urine Mucus 1+ /hpf 02/24/23 09:14 Vancomycin Trough 4.5 ug/mL (10-15) L 02/26/23 20:14 Levetiracetam 8.3 mcg/mL (6.0-46.0) 02/25/23 09:53 Vitals Last Vital Signs Temp 98.3 F 02/26/23 21:30 Pulse 95 02/28/23 08:27 Resp 22 H 02/28/23 08:09 BP 132/75 02/28/23 06:00 Pulse Ox 97 02/28/23 08:09 O2 Del Method Nasal Cannula 02/28/23 08:09 O2 Flow Rate 6 02/28/23 08:09 FiO2 35 02/26/23 09:39 Discharge Plan Discharge Patient Disposition: Hospice - Medical Facility Condition: Stable Prescriptions: New fluconazole 100 mg Tablet 200 mg peg-tube DAILY Qty: 12 0RF amlodipine 10 mg Tablet 10 mg peg-tube DAILY Qty: 30 0RF levofloxacin 750 mg tablet 750 mg PO Q24H 5 Days Qty: 5 0RF Continued acetaminophen [Tylenol] 325 mg tablet 650 mg PO QID PRN (Reason: Pain) magnesium hydroxide [Milk of Magnesia] 400 mg/5 mL suspension 5 ml PO DAILY PRN (Reason: Constipation) gabapentin 600 mg tablet 600 mg PO TID fluticasone propionate 50 mcg/actuation spray,suspension 2 spray INTRANASAL DAILY Qty: 9.9 6RF Rx Instructions: administer into each nostril hydrocodone-acetaminophen 5-325 mg tablet 1 tab PO BID PRN (Reason: pain) 30 Days Qty: 60 0RF atorvastatin 80 mg Tablet 80 mg PO QPM albuterol sulfate 2.5 mg /3 mL (0.083 %) Solution For Nebulization 2.5 mg INHALATION Q6H PRN (Reason: Shortness Of Breath) aspirin 325 mg Tablet 325 mg PO DAILY polyethylene glycol 3350 [Miralax] 17 gram/dose Powder 17 g PO BEDTIME Isosource 1.5 Markus 0.07 gram-1.5 kcal/mL Liquid See Rx Instructions .ROUTE .COMPLEX Rx Instructions: 250 ea via feeding tube 6X DAILY baclofen 10 mg tablet 10 mg PO TID omeprazole 40 mg Capsule,Delayed Release(Dr/Ec) 40 mg PO DAILY levetiracetam [Keppra] 750 mg Tablet 750 mg PO BID aripiprazole [Abilify] 2 mg Tablet 2 mg PO QPM ondansetron HCl 4 mg Tablet 4 mg PO Q6H PRN (Reason: Nausea And Vomiting) venlafaxine 150 mg capsule,extended release 24hr 150 mg PO DAILY Discharge Orders: Discharge Order (Routine); Ordered 02/28/23 Ordered By: Rios Villatoro Referrals: [facility] [Outside] () [facility] [Outside] Rex Bernardo MD [Primary Care Provider] - Discharge Diet: As Directed Discharge Activity: Resume usual activity and Increase activity as tolerated Patient Instructions: Opioid Safety Activity Restrictions/Additional Instructions: Tube feeds as directed. Jevity 1.2 bolus feeds with 60 mL/water flush before and after each feed. 8 AM: 240 mils, noon: 480 mils, 4 PM: 240 mils, 8 PM: 480 mils Continue fluconazole and Levaquin as directed. Discharge Attestations Time Spent in Discharge Care*: greater than 30 min Specific Discharge Activities: educating and/or supporting family/caregiver, discussing with pcp/other providers, discussing with behavioral health case manager/social workers/dc planners, documenting/other paperwork and evaluating patient/reviewing data Status at Discharge: Cognitive status at discharge: moderately impaired cognition , Behavioral status at discharge: cooperative , Functional status at discharge: wheelchair bound , Overall status at discharge: patient is back to baseline Quality Metrics Clinical Quality Measures [ No reported AMI, CVA or VTE this stay] Coding Level of Care Code 47183 Total time (in minutes) for Discharge: 60 Diagnoses Septic shock A41.9; R65.21 Aspiration pneumonia J69.0 Acute hypercapnic respiratory failure J96.02 Hypernatremia E87.0 COPD (chronic obstructive pulmonary disease) J44.9 Altered mental status R41.82 Altered mental status type: unspecified Spastic hemiparesis affecting dominant side G81.10 Cerebral infarction, unspecified I63.9 Expressive aphasia R47.01 Essential (primary) hypertension I10 GERD (gastroesophageal reflux disease) K21.9 Hypokalemia E87.6 Alkalosis E87.3 Lactic acidemia E87.20
[2023-02-28] MEDS: pantoprazole 40 mg SDV IVP (09:54)
[2023-02-28] MEDS: fluconazole 100 mg Tablet 200 MG PEG-TUBE (09:55)
[2023-02-28] MEDS: baclofen 10 mg Tablet PEG-TUBE ×2 (09:55→14:29)
[2023-02-28] MEDS: levETIRAcetam 1,000 mg/10 mL UDC 750 MG PEG-TUBE (10:02)
[2023-02-28] MEDS: chlorhexidine gluconate 0.12% UDC 15 mL MUCOUS MEM (10:05)
[2023-02-28 11:56] LABS: SARS Covid-2 Antigen negative (Negative)
--- NOTE | 2023-02-28 12:25 | PC.NURSE ---
Daughter, Clara Bean, Notified via telephone of discharge back to [facility] this afternoon.
--- NOTE | 2023-02-28 12:30 | PC.NURSE ---
Report called to [facility]. Report given to Viki Yung LPN. All questions answered.
[2023-02-28] MEDS: amlodipine 10 mg Tablet PEG-TUBE (12:38)
[2023-02-28] MEDS: venlafaxine 75 mg Tablet 150 MG PEG-TUBE (12:38)
--- NOTE | 2023-02-28 13:18 | PC.PT ---
Late entry for 02/27/2023; Dr. Min requested cancel PT order, as patient going to hospice care.
[2023-02-28] MEDS: gabapentin 100 mg Capsule 200 MG PEG-TUBE (14:29)
--- NOTE | 2023-02-28 17:43 | PC.NURSE ---
Pt discharge with ambulance crew. Daughter was on the phone, informed of crew here to transport. [facility] called and notified of pt discharging now. Karen, nurse at [facility], updated on medications admin this afternoon and tube feeding completed for the day, water fllush at 1999 was the next bro,d/flush due. [facility] notified of pt leaving now, Spoke with Gracie.
== END 2023-02-28 17:42 | disposition hospice, home (50) | DRG 871 ==
LOC: ER 07:54 → ICU 11:35
PROVIDERS: Admitting Provider Internal Medicine; Emergency Provider Family Medicine; PCP Internal Medicine; Visit Provider Student in an Organized Health Care Education/Training Program
DX: A41.9 Sepsis, unspecified organism (principal); G93.41 Metabolic encephalopathy; J69.0 Pneumonitis due to inhalation of food and vomit; J96.02 Acute respiratory failure with hypercapnia; J96.01 Acute respiratory failure with hypoxia; I69.351 Hemiplegia and hemiparesis following cerebral infarction affecting right dominant side; K94.23 Gastrostomy malfunction; E87.0 Hyperosmolality and hypernatremia; E87.20 Acidosis, unspecified; I69.391 Dysphagia following cerebral infarction; I69.320 Aphasia following cerebral infarction; R13.10 Dysphagia, unspecified; Z66 Do not resuscitate; Z79.891 Long term (current) use of opiate analgesic; Z79.51 Long term (current) use of inhaled steroids; J44.9 Chronic obstructive pulmonary disease, unspecified; K21.9 Gastro-esophageal reflux disease without esophagitis; E87.6 Hypokalemia; F32.9 Major depressive disorder, single episode, unspecified; I10 Essential (primary) hypertension
CPT/HCPCS: 31500; 36415; 36569; 36592; 36600; 51702; 70450; 71045; 71275; 74177; 80048; 80051; 80053; 80177; 80202; 81001; 82330; 82607; 82803; 82805; 83605; 83690; 83735; 84100; 84145; 84443; 84484; 85025; 85378; 86140; 87040; 87070; 87106; 87205; 87426; 87641; 93005; 93306; 94002; 94003; 94640; 94669; 94799; 96365; 96367; 96372; 96375; 96376; 99291; C1751; C9113; J0692; J0696; J1100; J1644; J1650; J1940; J2270; J2704; J3010; J3370; J3480; J3490; J7030; J7050; J7626; J7799; Q9967